=== PATIENT | female | born 1975 | race Caucasian/White ===

== ENCOUNTER 2018-04-26 20:28 | Inpatient (IN) ==
[2018-04-26] MEDS ORDERED: Sodium Chlor 0.9% Inj 500 ML IV.SIG ONE (21:10)
[2018-04-26 21:51] LABS: Baso # (Auto) 0.1 th/mm3 (0.0-0.2); Baso % (Auto) 0.5 % (0.0-2.0); Eos % (Auto) 0.1 % (0.0-4.0); Hematocrit 32.1 % (35.0-46.0); Hemoglobin 10.3 gm/dL (11.6-15.3); Lymph # (Auto) 3.4 th/mm3 (1.0-4.8); Mean Corpuscular HGB Conc 32.2 % (32.0-36.0); Mean Corpuscular Hemoglobin 22.6 pg (27.0-34.0); Mean Platelet Volume 9.5 fL (7.0-11.0); Mono # (Auto) 1.4 th/mm3 (0.0-0.9); Mono % (Auto) 7.6 % (0.0-8.0); Neut # (Auto) 13.8 th/mm3 (1.8-7.7); Neut % (Auto) 73.8 % (16.0-70.0); Platelet Count 513 th/mm3 (150-450); Red Blood Count 4.58 mil/mm3 (4.00-5.30); Red Cell Distribution Width 17.3 % (11.6-17.2); White Blood Count 18.7 th/mm3 (4.0-11.0)
[2018-04-26] MEDS ORDERED: Piperacil/Tazo 3.375 GM Premix 50 ML IV.SIG ONE (22:08)
[2018-04-26] MEDS ORDERED: Vancomycin Inj 1 GM/200 ML PIGGYBACK IV.SIG ONE (22:08)
--- NOTE | 2018-04-26 22:08 | ED ---
HPI General Chief complaint: Skin/Abscess/Foreign Body Stated complaint: Evac/Medical Time Seen by Provider: 04/26/18 20:43 Source: patient History of Present Illness HPI narrative: Patient has a abscess with a green eschar swollen and severely red and tender to the lateral malleolus on her left foot she is an IVDA drug abuser she apparently was given antibiotic. She was seen by a in the ER but did not fill that prescription. And she tried to do an I&D herself and now it is severely swollen tender odorous almost mostly gangrenous with a greenish hue to the eschar. Patient has pain severe tenderness left lateral malleolus with obvious swelling erythema central eschar purulent with a greenish edge to it very worrisome for gangrene gas producing. Pain is 10 out of 10 she is crying in pain asking for pain medication Related Data Home Medications Medication Instructions Recorded Confirmed No Known Home Medications 04/26/18 04/26/18 Allergies Allergy/AdvReac Type Severity Reaction Status Date / Time ibuprofen Allergy Severe Edema Verified 04/26/18 20:38 Review of Systems Except as stated in HPI: all other systems reviewed are negative Musculoskeletal Reports arthralgias, Reports joint swelling and Reports other (Severe pain in her left lateral malleolus and foot obvious red swollen tender and a greenish eschar for 4 days) [facility] Social History Social History Substance History: Active Abuse Second Hand Smoke Exposure: Yes Smoking Status: Current every day smoker Tobacco Type: Cigarettes How Often Do You Have a Drink Containing Alcohol: Never Recent Travel in [facility] within the Last 8 Weeks: No Recent Out of Country Travel within the Last 8 Weeks: No Substance Abuse Detail Heroin: Substance Use Status: Active Route Used Substance Abuse: Inhalation Substance Abuse Comment: "TAKE THE PAIN AWAY" Reason for Use: Feels Good and Get High Immunization History Tetanus Immunization: Unsure Tetanus Immunization Year if Known: 2014 Exam Narrative Exam Narrative: Patient is in severe pain tender crying holding her left ankle and leg rocking in the bed and pain HENMT Head: normal to inspection Ears: hearing grossly normal bilaterally Mouth: oral mucosae normal Resp Auscultation: clear to auscultation bilaterally Skin General: eschar (Patient has severe swelling redness to the lateral aspect of the left foot including the lateral malleolus as well as left foot red tender swollen and on the malleolus itself there is an eschar purulent with green edge that smells very strongly of gangrene) Course Initial Documented Vital Signs Temperature 99.8 F H 04/26/18 20:35 Pulse Rate 103 H 04/26/18 20:35 Respiratory Rate 20 04/26/18 20:35 Blood Pressure 119/69 04/26/18 20:35 Pulse Oximetry 99 04/26/18 20:35 Last Documented Vital Signs Temperature 98.4 F 05/02/18 20:00 Pulse Rate 63 05/02/18 20:00 Respiratory Rate 16 05/02/18 20:00 Blood Pressure 129/76 05/02/18 20:00 Pulse Oximetry 96 05/02/18 20:00 Medical Decision Making MDM Narrative Medical decision making narrative: Patient is given Vanco Zosyn and Flagyl for all the multiple possibilities x-rays done shows gas in the skin of the lateral foot podiatry was called immediately Dr. Slater comes and it takes the patient to the OR to debride this gas producing bacterial infection of her foot Differential Diagnosis Differential Diagnosis: Differential diagnosis includes cellulitis versus abscess versus gangrene gas producing bacteria versus other bacteria causing severe infection possible MRSA however with the smell greenish possible gangrene possibly Klebsiella other Lab Data Result diagrams: 04/29/18 06:51 04/29/18 06:51 Lab Results 04/26/18 04/26/18 04/26/18 Range/Units 21:12 21:12 21:12 WBC 18.7 H (4.0-11.0) th/mm3 RBC 4.58 (4.00-5.30) mil/mm3 Hgb 10.3 L (11.6-15.3) gm/dL Hct 32.1 L (35.0-46.0) % MCV 70.0 L (80.0-100.0) fL MCH 22.6 L (27.0-34.0) pg MCHC 32.2 (32.0-36.0) % RDW 17.3 H (11.6-17.2) % Plt Count 513 H (150-450) th/mm3 MPV 9.5 (7.0-11.0) fL Neut % (Auto) 73.8 H (16.0-70.0) % Lymph % (Auto) 18.0 (9.0-44.0) % [place] % (Auto) 7.6 (0.0-8.0) % Eos % (Auto) 0.1 (0.0-4.0) % Baso % (Auto) 0.5 (0.0-2.0) % Neut # (Auto) 13.8 H (1.8-7.7) th/mm3 Lymph # (Auto) 3.4 (1.0-4.8) th/mm3 [place] # (Auto) 1.4 H (0.0-0.9) th/mm3 Eos # (Auto) 0.0 (0.0-0.4) th/mm3 Baso # (Auto) 0.1 (0.0-0.2) th/mm3 WBC Differential . Differential Comment Auto diff final Sodium 134 L (136-145) meq/L Potassium 2.7 L* (3.5-5.1) meq/L Chloride 98 (98-107) meq/L Carbon Dioxide 23.2 (21.0-32.0) meq/L Anion Gap 13 (5-15) meq/L BUN 7 (7-18) mg/dL Creatinine 0.98 (0.50-1.00) mg/dL Estimated GFR 62 L (>89) mL/min Random Glucose 112 H (74-106) mg/dL Lactic Acid 1.8 (0.4-2.0) mmol/L Calcium 8.8 (8.5-10.1) mg/dL Total Bilirubin 0.6 (0.2-1.0) mg/dL AST 18 (15-37) U/L ALT 12 (10-53) U/L Alkaline Phosphatase 64 (45-117) U/L Total Protein 7.8 (6.4-8.2) g/dL Albumin 2.5 L (3.4-5.0) g/dL Urine Color (Yellw/Straw) Urine Clarity (Clear) Urine pH (5.0-8.5) Ur Specific Odell (1.002-1.035) Urine Protein (Neg-Trace) mg/dL Urine Glucose (UA) (Negative) mg/dL Urine Ketones (Negative) mg/dL Urine Occult Blood (Negative) Urine Nitrate (Negative) Urine Bilirubin (Negative) Urine Urobilinogen (Less than 2) mg/dL Ur Leukocyte Esterase (Negative) Urine RBC (0-3) /hpf Urine WBC (0-5) /hpf Ur Squamous Epith Cells (0-5) /hpf Urine Bacteria (None) /hpf Hyaline Casts (0-3) /lpf Urine Mucus (Occasional) /lpf Micro UA Comment Urine Culture Comments Vancomycin Trough (5.0-10.0) mcg/mL 04/27/18 04/27/18 04/27/18 Range/Units 00:40 08:55 08:55 WBC 20.7 H (4.0-11.0) th/mm3 RBC 3.90 L (4.00-5.30) mil/mm3 Hgb 9.0 L (11.6-15.3) gm/dL Hct 27.9 L (35.0-46.0) % MCV 71.5 L (80.0-100.0) fL MCH 23.0 L (27.0-34.0) pg MCHC 32.2 (32.0-36.0) % RDW 17.6 H (11.6-17.2) % Plt Count 470 H (150-450) th/mm3 MPV 9.2 (7.0-11.0) fL Neut % (Auto) 92.6 H (16.0-70.0) % Lymph % (Auto) 4.8 L (9.0-44.0) % [place] % (Auto) 2.5 (0.0-8.0) % Eos % (Auto) 0.0 (0.0-4.0) % Baso % (Auto) 0.1 (0.0-2.0) % Neut # (Auto) 19.2 H (1.8-7.7) th/mm3 Lymph # (Auto) 1.0 (1.0-4.8) th/mm3 [place] # (Auto) 0.5 (0.0-0.9) th/mm3 Eos # (Auto) 0.0 (0.0-0.4) th/mm3 Baso # (Auto) 0.0 (0.0-0.2) th/mm3 WBC Differential . Differential Comment Auto diff final Sodium 140 (136-145) meq/L Potassium 3.4 L (3.5-5.1) meq/L Chloride 107 D (98-107) meq/L Carbon Dioxide 24.1 (21.0-32.0) meq/L Anion Gap 9 (5-15) meq/L BUN 9 (7-18) mg/dL Creatinine 0.87 (0.50-1.00) mg/dL Estimated GFR 71 L (>89) mL/min Random Glucose 197 H (74-106) mg/dL Lactic Acid (0.4-2.0) mmol/L Calcium 8.5 (8.5-10.1) mg/dL Total Bilirubin 0.3 (0.2-1.0) mg/dL AST 16 (15-37) U/L ALT 12 (10-53) U/L Alkaline Phosphatase 128 H (45-117) U/L Total Protein 6.9 D (6.4-8.2) g/dL Albumin 2.2 L (3.4-5.0) g/dL Urine Color Jerilyn (Yellw/Straw) Urine Clarity Turbid H (Clear) Urine pH 5.0 (5.0-8.5) Ur Specific Odell 1.026 (1.002-1.035) Urine Protein 30 H (Neg-Trace) mg/dL Urine Glucose (UA) Negative (Negative) mg/dL Urine Ketones Negative (Negative) mg/dL Urine Occult Blood Small H (Negative) Urine Nitrate Negative (Negative) Urine Bilirubin Negative (Negative) Urine Urobilinogen 2.0 H (Less than 2) mg/dL Ur Leukocyte Esterase Trace H (Negative) Urine RBC 55 H (0-3) /hpf Urine WBC 62 H (0-5) /hpf Ur Squamous Epith Cells 127 (0-5) /hpf Urine Bacteria Moderate H (None) /hpf Hyaline Casts 29 (0-3) /lpf Urine Mucus Many H (Occasional) /lpf Micro UA Comment Culture indicated Urine Culture Comments Culture indicated Vancomycin Trough (5.0-10.0) mcg/mL 04/28/18 04/29/18 04/29/18 Range/Units 11:48 06:51 06:51 WBC 7.1 (4.0-11.0) th/mm3 RBC 3.66 L (4.00-5.30) mil/mm3 Hgb 8.3 L (11.6-15.3) gm/dL Hct 26.4 L (35.0-46.0) % MCV 72.1 L (80.0-100.0) fL MCH 22.7 L (27.0-34.0) pg MCHC 31.5 L (32.0-36.0) % RDW 16.9 (11.6-17.2) % Plt Count 444 (150-450) th/mm3 MPV 9.5 (7.0-11.0) fL Neut % (Auto) 50.2 (16.0-70.0) % Lymph % (Auto) 39.6 (9.0-44.0) % [place] % (Auto) 6.6 (0.0-8.0) % Eos % (Auto) 2.5 (0.0-4.0) % Baso % (Auto) 1.1 (0.0-2.0) % Neut # (Auto) 3.6 (1.8-7.7) th/mm3 Lymph # (Auto) 2.8 (1.0-4.8) th/mm3 [place] # (Auto) 0.5 (0.0-0.9) th/mm3 Eos # (Auto) 0.2 (0.0-0.4) th/mm3 Baso # (Auto) 0.1 (0.0-0.2) th/mm3 WBC Differential . Differential Comment Auto diff final Sodium 144 (136-145) meq/L Potassium 3.3 L (3.5-5.1) meq/L Chloride 108 H (98-107) meq/L Carbon Dioxide 25.9 (21.0-32.0) meq/L Anion Gap 10 (5-15) meq/L BUN 6 L (7-18) mg/dL Creatinine 0.78 (0.50-1.00) mg/dL Estimated GFR 81 L (>89) mL/min Random Glucose 79 D (74-106) mg/dL Lactic Acid (0.4-2.0) mmol/L Calcium 8.6 (8.5-10.1) mg/dL Total Bilirubin (0.2-1.0) mg/dL AST (15-37) U/L ALT (10-53) U/L Alkaline Phosphatase (45-117) U/L Total Protein (6.4-8.2) g/dL Albumin (3.4-5.0) g/dL Urine Color (Yellw/Straw) Urine Clarity (Clear) Urine pH (5.0-8.5) Ur Specific Odell (1.002-1.035) Urine Protein (Neg-Trace) mg/dL Urine Glucose (UA) (Negative) mg/dL Urine Ketones (Negative) mg/dL Urine Occult Blood (Negative) Urine Nitrate (Negative) Urine Bilirubin (Negative) Urine Urobilinogen (Less than 2) mg/dL Ur Leukocyte Esterase (Negative) Urine RBC (0-3) /hpf Urine WBC (0-5) /hpf Ur Squamous Epith Cells (0-5) /hpf Urine Bacteria (None) /hpf Hyaline Casts (0-3) /lpf Urine Mucus (Occasional) /lpf Micro UA Comment Urine Culture Comments Vancomycin Trough 7.2 (5.0-10.0) mcg/mL Imaging Data Radiologist's impression: Ankle X-Ray 04/26/18 23:12 CONCLUSION: Extensive soft tissue swelling with air in the soft tissues of the lateral left foot posteriorly characteristic of infection with gas producing organism. Foot X-Ray 04/26/18 23:12 CONCLUSION: Infection of the lateral posterior left foot with gas producing organism. No acute bony abnormality identified on plain film. Discharge Plan Discharge Disposition Patient Disposition: 30 Still Patient Discharge Details Diagnosis: Gas gangrene, Foot ulcer with necrosis of muscle Physicians Team ED Provider: Jerrod Ramirez Primary Care Provider: UNKNOWN, Attending Provider: Cecilia Nicole Other Providers: Jonas Slater ; Sharona Box Discharge Interventions Interventions: ED Discharge Assessment Last Done: 04/27/18 02:32 Status ED Status: Left Department Discharge Information Discharge Date/Time: 04/27/18 02:33
[2018-04-26] MEDS ORDERED: HYDROmorphone PF Inj 2 MG/ML Vial IV.PUSH ONE (22:09)
[2018-04-26 22:15] LABS: Alanine Aminotransferase 12 U/L (10-53); Albumin 2.5 g/dL (3.4-5.0); Alkaline Phosphatase 64 U/L (45-117); Anion Gap 13 meq/L (5-15); Aspartate Aminotransferase 18 U/L (15-37); Blood Urea Nitrogen 7 mg/dL (7-18); Calcium 8.8 mg/dL (8.5-10.1); Carbon Dioxide 23.2 meq/L (21.0-32.0); Chloride 98 meq/L (98-107); Glomerular Filtration Rate 62 mL/min (>89); Glucose,Random 112 mg/dL (74-106); Sodium 134 meq/L (136-145); Total Protein 7.8 g/dL (6.4-8.2)
[2018-04-26] MEDS ORDERED: Vancomycin Inj 1,000 MG in Sodium Chlor 0.9% Inj 250 ML IV.SIG ONE (22:15)
[2018-04-26 22:22] LABS: Potassium 2.7 meq/L (3.5-5.1)
[2018-04-26] MEDS ORDERED: Morphine Sulfate Inj 2 MG/ML Vial IV.PUSH PRN (23:23)
[2018-04-26] MEDS ORDERED: Acetaminophen 325 MG Tablet PO PRN (23:25)
[2018-04-26] MEDS ORDERED: Bisacodyl 10 MG Supp RECTAL PRN (23:25)
--- NOTE | 2018-04-26 23:27 | P.HPIM ---
History of Present Illness Primary Care Physician: UNKNOWN History of Present Illness: This is a 43-year-old female with a PMH of IVDU presents to ER with complaints of left foot swelling and tenderness x1 wk after injecting IV drugs into left foot. Seen in ER on 04/23/18 for similar symptoms, d/c'd w/ Bactrim/Keflex, non- compliant w/ antibiotics. Now w/ worsening pain/swelling. Denies fever or chills. On arrival, BP 119/69, HR 103, O2 sat 99%, Temp 99.8. WBC 18.7. K+ 2.7. Lactic Acid normal. Foot X-ray w/ infection of left foot w/ gas producing organism. Podiatry consulted for surgical intervention. S/p Vanc/ Zosyn/Flagyl in ER. - Diagnosis (1) Sepsis (2) Foot infection (3) IVDU (intravenous drug user) (4) Hypokalemia Inpatient Certification: I certify that the inpatient services were ordered in accordance with Medicare regulations governing the order. This includes certification that hospital inpatient services are reasonable and necessary and in the case of services not specified as inpatient-only under 42 CFR 419.22(n), that they are appropriately provided as inpatient services in accordance to with the 2-midnight benchmark under 43 CFR 412.3(e) Estimated Total Length of Stay (Days): 2 Plans for Post Hospital Care: Not yet determined Review of Systems All other systems reviewed negative except as stated in [facility] - History History Provided By: Patient - Medical History Medical History: Medical History (Last Reviewed 04/24/18 @ 02:20 by Malorie Dhaliwal) Tubal ligation status - Tobacco History Second Hand Smoke Exposure: Yes Tobacco Use In Past 30 Days: Yes Smoking Status: Current every day smoker Tobacco Type: Cigarettes - Alcohol History How Often Do You Have a Drink Containing Alcohol: Never - Substance Use History Substance History: Active Abuse - Substance Use Type Heroin Status: Active Route Used: Inhalation Reason for Use: Feels Good, Get High Comment: "TAKE THE PAIN AWAY" - Travel History Recent Travel in the [place] Within the Last 8 Weeks: No Recent Travel Out of the Country Within the Last 8 Weeks: No - Immunization History Tetanus Immunization: Unsure Tetanus Immunization Year if Known: 2014 Medications and Allergies Allergies Allergy/AdvReac Type Severity Reaction Status Date / Time ibuprofen Allergy Severe Edema Verified 04/26/18 20:38 Home Medications Medication Instructions Recorded Confirmed Type No Known Home Medications 04/26/18 04/26/18 History Exam Vital signs: Vital Signs 04/26/18 20:35 04/26/18 20:42 04/26/18 22:19 Temperature 99.8 F H Pulse Rate 103 H 103 H 88 Respiratory Rate 18 Blood Pressure 119/69 116/56 L 104/84 Pulse Oximetry 99 98 99 Intake & Output 04/26/18 04/26/18 04/27/18 06:59 18:59 06:59 Weight 77 kg Narrative: PE: GENERAL: Young white female in moderate distress due to pain complaints. HEENT: PERRLA, EOMI. No scleral icterus or conjunctival pallor. No lid lag or facial droop. CARDIOVASCULAR: Regular rate and rhythm. No obvious murmurs to auscultation. No chest tenderness to palpation. RESPIRATORY: No obvious rhonchi or wheezing. Clear to auscultation. Breath sounds equal bilaterally. GASTROINTESTINAL: Abdomen soft, non-tender, nondistended. BS normal. MUSCULOSKELETAL: Extremities without clubbing, cyanosis, or edema. No obvious deformities. Left foot w/ significant swelling/erythema, area of necrosis left ankle w/ purulent drainage. NEUROLOGICAL: Awake, alert and oriented x4. No focal neurologic deficits. Moving both upper and lower extremities spontaneously. Results - Labs CBC & Chem 7: 04/26/18 21:12 04/26/18 21:12 Labs: Short CBC 04/26/18 Range/Units 21:12 WBC 18.7 H (4.0-11.0) th/mm3 Hgb 10.3 L (11.6-15.3) gm/dL Hct 32.1 L (35.0-46.0) % Plt Count 513 H (150-450) th/mm3 BMP 04/26/18 21:12 Sodium 134 L Potassium 2.7 L* Chloride 98 Carbon Dioxide 23.2 BUN 7 Creatinine 0.98 Calcium 8.8 Liver Function 04/26/18 Range/Units 21:12 Total Bilirubin 0.6 (0.2-1.0) mg/dL AST 18 (15-37) U/L ALT 12 (10-53) U/L Alkaline Phosphatase 64 (45-117) U/L Albumin 2.5 L (3.4-5.0) g/dL Caprini VTE Risk Assessment Caprini VTE Risk Assessment: No/Low Risk (score <= 1) VTE Mechanical Exception: LE injury/wound Caprini Risk Assessment Model: Point Value = 1 Point Value = 2 Point Value = 3 Point Value = 5 Age 41-60 Minor surgery BMI > 25 kg/m2 Swollen legs Varicose veins or History of unexplained or recurrent spontaneous Oral contraceptives or hormone replacement Sepsis (< 1 month) Serious lung disease, including pneumonia (< 1 month) Abnormal pulmonary function Acute myocardial infarction Congestive heart failure (< 1 month) History of inflammatory bowel disease Medical patient at bed rest Age 61-74 Arthroscopic surgery Major open surgery (> 45 min) Laparoscopic surgery (> 45 min) Malignancy Confined to bed (> 72 hours) Immobilizing plaster cast Central venous access Age >= 75 History of VTE Family history of VTE Factor V Leiden Prothrombin [id number] Lupus anticoagulant Anticardiolipin antibodies Elevated serum homocysteine Heparin-induced thrombocytopenia Other congenital or acquired thrombophilia Stroke (< 1 month) Elective arthroplasty Hip, pelvis, or leg fracture Acute spinal cord injury (< 1 month) Prophylaxis Regimen: Total Risk Factor Score Risk Level Prophylaxis Regimen 0-1 Low Early ambulation 2 Moderate Order ONE of the following: *Sequential Compression Device (SCD) *Heparin 5000 units SQ BID 3-4 Higher Order ONE of the following medications: *Heparin 5000 units SQ TID *Enoxaparin/Lovenox 40 mg SQ daily (WT < 150 kg, CrCl > 30 mL/min) *Enoxaparin/Lovenox 30 mg SQ daily (WT < 150 kg, CrCl > 10-29 mL/min) *Enoxaparin/Lovenox 30 mg SQ BID (WT < 150 kg, CrCl > 30 mL/min) AND/OR *Sequential Compression Device (SCD) 5 or more Highest Order ONE of the following medications: *Heparin 5000 units SQ TID (Preferred with Epidurals) *Enoxaparin/Lovenox 40 mg SQ daily (WT < 150 kg, CrCl > 30 mL/min) *Enoxaparin/Lovenox 30 mg SQ daily (WT < 150 kg, CrCl > 10-29 mL/min) *Enoxaparin/Lovenox 30 mg SQ BID (WT < 150 kg, CrCl > 30 mL/min) AND *Sequential Compression Device (SCD) Assessment and Plan - Assessment (1) Sepsis Code(s): A41.9 - Sepsis, unspecified organism Status: Acute (2) Foot infection Code(s): L08.9 - Local infection of the skin and subcutaneous tissue, unspecified Status: Acute (3) IVDU (intravenous drug user) Code(s): F19.90 - Other psychoactive substance use, unspecified, uncomplicated Status: Acute (4) Hypokalemia Code(s): E87.6 - Hypokalemia Status: Acute - Plan A/P: 1. Sepsis: Temp 99, HR 103, WBC 18, Source-Left foot infection, s/p blood cultures, Vanc/Zosyn/Flagyl. Follow up cultures, continue IV Abx. 2. Left Foot Infection: after IVDU, recent eval in ER for same s/p Bactrim/ Keflex, non-compliant w/ meds. X-ray w/ infection from gas producing organism, images reviewed by me. Podiatry consulted for surgical intervention, NPO, IVF, continue w/ Vanc/Cef/Flagyl. 3. IVDU: ongoing, Ativan prn for withdrawal. 4. DVT Prophylaxis: Mechanical contraindication due to wound 5. Social work for d/c planning as needed. 6. Case discussed w/ ER physician at length, labs/records/imaging reviewed by me.
[2018-04-26] MEDS ORDERED: Vancomycin Consult Pharmacy 1 EACH OTHER SCH (23:45)
[2018-04-27] MEDS: Sod Chloride 0.9% Inj 1,000 ML IV.CONT SCH ×3 (00:02→13:21)
--- NOTE | 2018-04-27 00:08 | XR ---
EXAM DATE: 04/26/2018 11:50 PM EDT AGE/SEX: 43 years / Female INDICATIONS: Open sore on lateral side of left ankle for four days. CLINICAL DATA: This is the patient's initial encounter. Patient reports that signs and symptoms have been present for 4 - 6 days and indicates a pain score of 10/10. MEDICAL/SURGICAL HISTORY: None. None. COMPARISON: No prior exams available for comparison. FINDINGS: There is extensive soft tissue swelling overlying the lateral posterior left foot and around the late ral malleolus with large locules of air in the soft tissues. Findings are characteristic of a necroti zing infection or infection with gas producing organism. No acute bony abnormalities. CONCLUSION: Extensive soft tissue swelling with air in the soft tissues of the lateral left foot posteriorly joni acteristic of infection with gas producing organism. Electronically signed by: Manuel Valdez MD 04/27/2018 12:06 AM EDT
--- NOTE | 2018-04-27 00:09 | XR ---
EXAM DATE: 04/26/2018 11:51 PM EDT AGE/SEX: 43 years / Female INDICATIONS: Open sore on lateral side of foot. CLINICAL DATA: This is the patient's initial encounter. Patient reports that signs and symptoms have been present for 4 - 6 days and indicates a pain score of 10/10. MEDICAL/SURGICAL HISTORY: None. None. COMPARISON: C, ANKLE LIMITED LEFT 2V, 04/26/2018. . FINDINGS: No acute bony abnormality. Extensive soft tissue swelling with gas in the soft tissues of the lateral posterior left foot. CONCLUSION: Infection of the lateral posterior left foot with gas producing organism. No acute bony abnormality i dentified on plain film. Electronically signed by: Manuel Valdez MD 04/27/2018 12:07 AM EDT
[2018-04-27] MEDS ORDERED: Diphtheria/Tetanus/Pertussis Vaccine Inj 0.5 ML Syringe IM ONE (00:43)
[2018-04-27] MEDS: Morphine Inj 4 MG/ML Vial IV.PUSH PRN (01:12)
[2018-04-27 01:26] LABS: Bacteria,Urine Moderate /hpf; Clarity,Urine Turbid (Clear); Color,Urine Amber (Yellw/Straw); Glucose,Urine (UA) Negative (Negative); Hyaline Casts,Urine 29 /lpf (0-3); Leukocyte Esterase,Urine Trace (Negative); Mucus,Urine Many /lpf (Occasional); Nitrite,Urine Negative (Negative); Specific Gravity,Urine 1.026 (1.002-1.035); Squamous Epithelial Cell,Urine 127 /hpf (0-5)
[2018-04-27 01:28] LABS: Bilirubin,Urine Negative (Negative)
--- NOTE | 2018-04-27 02:55 | P.BOP ---
- Preoperative Diagnosis (1) Gas gangrene - Postoperative Diagnosis (1) Gas gangrene Date of procedure: 04/27/18 Procedure: Left ankle incision drainage debridement with application of wound vac Anesthesia: DAMIAN Surgeon: Jonas Slater DPM Estimated blood loss (mL): 30 (mL) Tourniquet time (min): 0 Pathology: other (Wound cx x2 deep left ankle) Condition: stable Disposition: PACU
[2018-04-27] MEDS ORDERED: HYDROmorphone PF Inj 2 MG/ML Vial ONE (02:58)
[2018-04-27] MEDS ORDERED: fentaNYL Citrate Inj 100 MCG/2 ML Ampul ONE (03:09)
[2018-04-27] MEDS ORDERED: *Meperidine Inj 25 MG/ML Vial PERIprocedural Use ONLY ONE (03:10)
--- NOTE | 2018-04-27 03:17 | MB ---
cc: Jonas Conteh DPM DATE: 04/27/2018 REASON FOR CONSULTATION: Left gas gangrene of ankle. HISTORY OF PRESENT ILLNESS: A 43-year-old female with a history of IV drug abuse, point tenderness of the left foot and ankle approximately 1 week after injecting heroin into her foot. She was seen on 04/23/2018 for similar symptoms. She was discharged on antibiotics; however, significant worsening and pain noted. The patient was noted to have gas seen on x-ray. The emergency room called me. I immediately presented bedside for emergency evaluation and surgery. PAST MEDICAL HISTORY: Tubal ligation, IV drug abuser, heroin. ALLERGIES: MOTRIN. MEDICATIONS: The patient has received antibiotics and tetanus update in the ED, as well as antibiotics, Flagyl, Zosyn, and vancomycin. Please see complete medication list in chart. PHYSICAL EXAMINATION: VITAL SIGNS: Temperature 99.8, pulse rate 103, respiratory rate 20, blood pressure 119/69. GENERAL: This is an alert and oriented female. She is in obvious pain of the extremity. EXTREMITIES: Left lower extremity was examined. There is noted to be a necrotic, fluctuant area measuring approximately 3 x 4 cm of the distal lateral ankle. There is near complete swelling of the foot, ankle and distal leg, but it appears the majority of the gas remains below the ankle. Pedal pulses are hard to palpate, but the foot is warm. Sensation is intact. There is significant pain with range of motion of the foot and ankle, but there is no obvious malalignment or instability noted. Right lower extremity is free from any obvious pathology. LABORATORY DATA: White blood cell 18.7, hemoglobin and hematocrit 10 and 32, platelet count is 513. Chem-7: Sodium 134, potassium 2.7; the patient received oral potassium in the ED. Chloride 98, CO2 of 23.2, BUN 7. Random glucose is 118, albumin 2.5. IMAGING: Ankle x-ray: Positive gas within the deep tissue. Extensive soft tissue swelling of the lateral foot. ASSESSMENT AND PLAN: Left ankle gas gangrene: The patient needs emergent incision and drainage and expansile debridement to save the limb and prevent further sepsis. The patient was educated this may be the first of many surgeries. The patient understood that there is likely going to be chronic pain, possible deterioration of tendon function. No guarantees given or implied regarding the outcome. The patient understood the severity of the infection. We left for the operating room. ISAIAS Barillas/[place] , 02:58 AM , 03:16 AM
--- NOTE | 2018-04-27 03:23 | MP ---
cc: Jonas Conteh DPM DATE OF OPERATION: PREOPERATIVE DIAGNOSIS: Left lateral ankle gas gangrene. POSTOPERATIVE DIAGNOSIS: Left lateral ankle gas gangrene. PROCEDURE PERFORMED: Incision and drainage, debridement of left ankle with application of wound VAC. ANESTHESIA: General. TOURNIQUET: None. INJECTABLES: None. IMPLANTABLES: The patient received application of a wound VAC at 100 mmHg under continuous suction. COMPLICATIONS: None. DISPOSITION: Returned to inpatient status to monitor wound, likely need multiple debridements and IV antibiotics. HISTORY OF PRESENT ILLNESS: A 43-year-old female IV drug abuser had slight onset of cellulitis. The patient was given oral antibiotics. The patient had significant worsening of symptoms. The patient had x-rays and physical examination consistent with a gas gangrene. Emergency surgery indicated. No guarantees given or implied regarding the outcome. The patient understood there will likely be permanent disability of the limb given the extent of the infection; however, we will try a limb salvage. PROCEDURE IN DETAIL: Under mild sedation, the patient was brought in the operating room, placed on the operating table in supine position. Following a rapid sequential intubation and epigastric emptying via suction, the left lower extremity was then scrubbed, prepped and draped in the usual aseptic fashion. The foot was elevated and examined. There was noted to be an approximately 4 x 6 cm distal lateral crepitus area of the distal lateral ankle. Upon performing an incision over this area, there was a rapid decompression of an air-filled pocket and a putrid odor. An incision was carried along the dorsal peroneal tendons and the posterolateral ankle. There was a purulent pocket that appeared to stay just superficial to the tendon sheath but appeared to go deep to the fascia. Sharp and blunt dissection was carried down to the dorsum of the foot, posterolateral ankle, and the plantar lateral hindfoot. All necrotic tissue and purulent material was curetted and lavaged. The wound was then left open to drain with a wound VAC placed over top. There is now a central void down to the peroneal tendon that measures approximately 3.5 cm x 4 cm with approximately 1 cm of depth. Adequate seal and suction obtained. The patient recovered in PACU. The patient may need multiple surgeries, and possible skin graft at the end of all of this; however, controlling the infection is my concern at this point. Will reevaluate the wound daily. ISAIAS Barillas , 03:02 AM , 03:21 AM
--- NOTE | 2018-04-27 09:38 | P.PN ---
Subjective Interval history: Follow up for left foot infection, sepsis. The patient reports continued left foot/ankle pain, requesting increased pain medications. She reports subjective fevers overnight with sweats. Denies any abdominal pain, nausea/vomiting, diarrhea. Denies any urinary complaints. She has no other medical complaints at this time. Physical Exam Vital signs: Vital Signs 04/26/18 20:35 04/26/18 20:42 04/26/18 22:19 Temperature 99.8 F H Pulse Rate 103 H 103 H 88 Respiratory Rate 20 22 18 Blood Pressure 119/69 116/56 L 104/84 Pulse Oximetry 99 98 99 04/27/18 00:00 04/27/18 02:56 04/27/18 03:00 Temperature 99.0 F Pulse Rate 90 98 H 104 H Respiratory Rate 18 16 Blood Pressure 97/70 L 97/64 L 93/62 L Pulse Oximetry 95 96 04/27/18 03:13 04/27/18 03:15 04/27/18 03:30 Temperature 98.3 F Pulse Rate 91 H 92 H Respiratory Rate 13 Blood Pressure 97/61 L 98/59 L Pulse Oximetry 96 99 97 04/27/18 03:45 04/27/18 03:48 04/27/18 04:00 Temperature 98.6 F Pulse Rate 88 92 H Respiratory Rate 13 15 15 Blood Pressure 98/55 L 97/58 L Pulse Oximetry 98 96 96 04/27/18 06:27 04/27/18 07:18 Temperature 98.4 F Pulse Rate 76 Respiratory Rate 15 18 Blood Pressure 92/50 L Pulse Oximetry 99 Intake & Output 04/26/18 04/27/18 04/27/18 18:59 06:59 18:59 Intake Total 900 / 900 100 / 100 Balance 900 / 900 100 / 100 Weight 77 kg Intake: IV 900 / 900 100 / 100 NS Inj 1,000 ML @ 100 mls/hr IV 0 / 0 .CONT .Q10H [facility] Rx#:[id number] Maxipime Inj 2,000 MG In NS Inj 100 / 100 100 ML @ 200 mls/hr IV.SIG Q8H [facility] Rx#:[id number] Zosyn 3.375 GM Premix 50 ML @ 50 / 50 100 mls/hr IV.SIG ONCE ONE Rx#: [id number] NS Inj 500 ML @ Wide Open IV. 500 / 500 SIG BOLUS ONE Rx#:[id number] Vancomycin Inj 1,000 MG In NS 250 / 250 Inj 250 ML @ 250 mls/hr IV.SIG ONCE ONE Rx#:[id number] Flagyl 500 MG Inj 100 ML @ 100 100 / 100 mls/hr IV.SIG ONCE ONE Rx#: [id number] Narrative: GENERAL: Well-nourished, well-developed middle aged female patient in NAD. SKIN: Warm and dry. No rash. HEENT: Normocephalic. Atraumatic. Pupils equal and round. Mucous membranes pink and moist. CARDIOVASCULAR: Regular rate and rhythm. No murmur appreciated. RESPIRATORY: No accessory muscle use. Clear to auscultation. Breath sounds equal bilaterally. GASTROINTESTINAL: Abdomen soft, non-tender, nondistended. Normoactive bowel sounds x4. MUSCULOSKELETAL: No obvious deformities. Left lateral ankle with wound vac in place, surrounding erythema/edema that extends up to the mid calf. NEUROLOGICAL: Awake and alert. No obvious cranial nerve deficits. Motor grossly within normal limits. Moving all extremities spontaneously. Normal speech. PSYCHIATRIC: Anxious; insight and judgment normal. Results - Labs CBC & Chem 7: 04/26/18 21:12 04/26/18 21:12 Laboratory Results - last 24 hr 04/26/18 04/26/18 04/26/18 21:12 21:12 21:12 WBC 18.7 H RBC 4.58 Hgb 10.3 L Hct 32.1 L MCV 70.0 L MCH 22.6 L MCHC 32.2 RDW 17.3 H Plt Count 513 H MPV 9.5 Neut % (Auto) 73.8 H Lymph % (Auto) 18.0 [place] % (Auto) 7.6 Eos % (Auto) 0.1 Baso % (Auto) 0.5 Neut # (Auto) 13.8 H Lymph # (Auto) 3.4 [place] # (Auto) 1.4 H Eos # (Auto) 0.0 Baso # (Auto) 0.1 WBC Differential . Differential Comment Auto diff final Sodium 134 L Potassium 2.7 L* Chloride 98 Carbon Dioxide 23.2 Anion Gap 13 BUN 7 Creatinine 0.98 Estimated GFR 62 L Random Glucose 112 H Lactic Acid 1.8 Calcium 8.8 Total Bilirubin 0.6 AST 18 ALT 12 Alkaline Phosphatase 64 Total Protein 7.8 Albumin 2.5 L Urine Color Urine Clarity Urine pH Ur Specific [place] Urine Protein Urine Glucose (UA) Urine Ketones Urine Occult Blood Urine Nitrate Urine Bilirubin Urine Urobilinogen Ur Leukocyte Esterase Urine RBC Urine WBC Ur Squamous Epith Cells Urine Bacteria Hyaline Casts Urine Mucus Micro UA Comment Urine Culture Comments 04/27/18 00:40 WBC RBC Hgb Hct MCV MCH MCHC RDW Plt Count MPV Neut % (Auto) Lymph % (Auto) [place] % (Auto) Eos % (Auto) Baso % (Auto) Neut # (Auto) Lymph # (Auto) [place] # (Auto) Eos # (Auto) Baso # (Auto) WBC Differential Differential Comment Sodium Potassium Chloride Carbon Dioxide Anion Gap BUN Creatinine Estimated GFR Random Glucose Lactic Acid Calcium Total Bilirubin AST ALT Alkaline Phosphatase Total Protein Albumin Urine Color Jerilyn Urine Clarity Turbid H Urine pH 5.0 Ur Specific [place] 1.026 Urine Protein 30 H Urine Glucose (UA) Negative Urine Ketones Negative Urine Occult Blood Small H Urine Nitrate Negative Urine Bilirubin Negative Urine Urobilinogen 2.0 H Ur Leukocyte Esterase Trace H Urine RBC 55 H Urine WBC 62 H Ur Squamous Epith Cells 127 Urine Bacteria Moderate H Hyaline Casts 29 Urine Mucus Many H Micro UA Comment Culture indicated Urine Culture Comments Culture indicated - Imaging Impressions Ankle X-Ray 04/26/18 23:12 CONCLUSION: Extensive soft tissue swelling with air in the soft tissues of the lateral left foot posteriorly characteristic of infection with gas producing organism. Foot X-Ray 04/26/18 23:12 CONCLUSION: Infection of the lateral posterior left foot with gas producing organism. No acute bony abnormality identified on plain film. - Procedures 04/26/18 - Dr. Conteh - Left ankle incision drainage debridement with application of wound vac Assessment and Plan - Assessment (1) Sepsis Code(s): A41.9 - Sepsis, unspecified organism Status: Acute (2) Foot infection Code(s): L08.9 - Local infection of the skin and subcutaneous tissue, unspecified Status: Acute (3) IVDU (intravenous drug user) Code(s): F19.90 - Other psychoactive substance use, unspecified, uncomplicated Status: Acute (4) Hypokalemia Code(s): E87.6 - Hypokalemia Status: Acute - Plan 43-year-old female with a PMH of IVDU presents to ER with complaints of left foot swelling and tenderness x1 wk after injecting IV drugs into left foot. Seen in ER on 04/23/18 for similar symptoms, d/c'd w/ Bactrim/Keflex, non- compliant w/ antibiotics. Left Foot Infection: after IVDU. +leukocytosis WBC 18K, tachycardia HR 103, temp 99.8. -X-ray reviewed, shows infection from gas producing organism -Podiatry consulted -04/26 S/p Left ankle incision drainage debridement with application of wound vac by Dr. Conteh -Continue antibiotics with IV Vanco/Cefepime/Flagyl -Consult ID -Supportive treatment with IVF, pain control with oxycodone prn -Elevate LLE Sepsis: Temp 99, HR 103, WBC 18, Source-Left foot infection. Lactic acid 1.8. -monitor blood cultures -Continue on antibiotics as above with IV Vanc/Zosyn/Flagyl. -Consult ID IVDU: ongoing -Counseled on cessation -Ativan prn for withdrawal. DVT Prophylaxis: Mechanical contraindication due to wound.
[2018-04-27 09:58] LABS: Baso % (Auto) 0.1 % (0.0-2.0); Hematocrit 27.9 % (35.0-46.0); Lymph % (Auto) 4.8 % (9.0-44.0); Mean Corpuscular HGB Conc 32.2 % (32.0-36.0); Mean Corpuscular Volume 71.5 fL (80.0-100.0); Mean Platelet Volume 9.2 fL (7.0-11.0); Mono # (Auto) 0.5 th/mm3 (0.0-0.9); Mono % (Auto) 2.5 % (0.0-8.0); Neut # (Auto) 19.2 th/mm3 (1.8-7.7); Neut % (Auto) 92.6 % (16.0-70.0); Platelet Count 470 th/mm3 (150-450); Red Cell Distribution Width 17.6 % (11.6-17.2); White Blood Count 20.7 th/mm3 (4.0-11.0)
[2018-04-27] MEDS: Senna/Docusate Sodium 8.6/50 MG Tablet PO SCH ×2 (10:13→22:40)
[2018-04-27] MEDS: HYDROmorphone PF Inj 2 MG/ML Vial IV.PUSH PRN ×3 (10:14→21:33)
[2018-04-27 10:21] LABS: Alanine Aminotransferase 12 U/L (10-53); Albumin 2.2 g/dL (3.4-5.0); Anion Gap 9 meq/L (5-15); Aspartate Aminotransferase 16 U/L (15-37); Blood Urea Nitrogen 9 mg/dL (7-18); Calcium 8.5 mg/dL (8.5-10.1); Carbon Dioxide 24.1 meq/L (21.0-32.0); Chloride 107 meq/L (98-107); Glomerular Filtration Rate 71 mL/min (>89); Glucose,Random 197 mg/dL (74-106); Potassium 3.4 meq/L (3.5-5.1); Sodium 140 meq/L (136-145)
[2018-04-27 10:37] LABS: Alkaline Phosphatase 128 U/L (45-117); Total Protein 6.9 g/dL (6.4-8.2)
[2018-04-27] MEDS ORDERED: Succinylcholine Inj 100 MG/5 ML Syringe IV.PUSH ONE (12:00)
[2018-04-27] MEDS: Vancomycin Inj 1,000 MG in Sodium Chlor 0.9% Inj 250 ML IV.SIG SCH (13:20)
--- NOTE | 2018-04-27 18:27 | P.CONID ---
History of Present Illness Service: ID Consult date: 04/27/18 Requesting Physician: Sandra Sandoval Reason for Consult: L foot infx Primary Care Provider: UNKNOWN History of Present Illness: 43 yo female with h/o IVDu presented with 2 days of worsening pain, swelling and redness of her L foot She has been doing IV drugs into the foot, including 2 days prior to the onset of her symptoms She also atmpted squeeze the painful lesion and it got worse after it She had Xray of the foot and it showed gas in tissues Podiatry saw the patient and took her for emergent I+D VAC was placed pt is on vancomycin,. cefepime and flagyl She reporetd fever chills earlier shioch now improved Gstained showed mixed amarilys and many WBC, cultuyre is P; blood clx are negative CBC with 20 K of WBC Review of Systems All other systems reviewed negative except as stated in HPI PMFSH - History History Provided By: Patient - Medical History Medical History: Medical History (Last Reviewed 06/24/18 @ 12:07 by Sharona Box MD) Tubal ligation status - Social History I have reviewed the patient's Social History: Yes - Tobacco History Second Hand Smoke Exposure: Yes Tobacco Use In Past 30 Days: Yes Smoking Status: Current every day smoker Tobacco Type: Cigarettes - Alcohol History How Often Do You Have a Drink Containing Alcohol: Never - Substance Use History Substance History: Active Abuse - Substance Use Type Heroin Status: Active Route Used: Inhalation, Intravenously Last Used: 04/26 Reason for Use: Feels Good, Get High Comment: SUPRESS FEELINGS, ANXIETY AND DEPRESSION - Travel History Recent Travel in the [place] Within the Last 8 Weeks: No Recent Travel Out of the Country Within the Last 8 Weeks: No - Immunization History Tetanus Immunization: Unsure Tetanus Immunization Year if Known: 2014 Hx Influenza Vaccine This Season: No Medications and Allergies Active Medications: Active Medications Acetaminophen (Tylenol) 650 mg PO Q4H PRN PRN Reason: Temp > 100.4 Al Hydroxide/Mg Hydroxide (Milk Of Magnesia Liq) 30 ml PO Q12H PRN PRN Reason: Mild Constipation Bisacodyl (Dulcolax Supp) 10 mg RECTAL DAILY PRN PRN Reason: SEVERE CONSITIPATION Hydromorphone HCl (Dilaudid Pf Inj) 2 mg IV.PUSH Q4H PRN PRN Reason: PAIN SCALE 7 TO 10 SEVERE Last Admin: 04/27/18 14:39 Dose: 2 mg Cefepime HCl 2,000 mg/ Sodium (Chloride) 100 mls @ 200 mls/hr IV.SIG Q8H [facility] [place] Last Infusion: 04/27/18 15:32 Dose: Infused Sodium Chloride (Ns Inj) 1,000 mls @ 100 mls/hr IV.CONT .Q10H [facility] [place] Last Admin: 04/27/18 13:21 Dose: 100 mls/hr Pharmacy Profile Note (Vancomycin Consult Pharmacy) 0 mls @ 0 mls/hr OTHER UNSCH [facility] [place] Metronidazole/Sodium Chloride (Flagyl 500 Mg Inj) 100 mls @ 100 mls/hr IV.SIG Q8H [facility] [place] Last Infusion: 04/27/18 18:10 Dose: Infused Vancomycin HCl 1,000 mg/ (Sodium Chloride) 250 mls @ 250 mls/hr IV.SIG Q12H [facility] [place] Last Infusion: 04/27/18 14:40 Dose: Infused Lactulose (Lactulose Liq) 30 ml PO DAILY PRN PRN Reason: SEVERE CONSITIPATION Lorazepam (Ativan Inj) 1 mg IV.PUSH Q3H PRN PRN Reason: AGITATION/WITHDRAWAL Last Admin: 04/27/18 15:58 Dose: 1 mg Metoclopramide HCl (Reglan Inj) 5 mg IV.PUSH Q6HR PRN; Protocol PRN Reason: NAUSEA OR VOMITING Miscellaneous Information ([facility] Nursing Information) 1 each OTHER UNSCH PRN PRN Reason: SEE LABEL COMMENTS Stop: 04/28/18 03:36 Miscellaneous Information ([facility] Ordered Lab Info) 0 each OTHER ONCE ONE Stop: 04/28/18 11:46 Morphine Sulfate (Morphine Inj) 2 mg IV.PUSH Q4H PRN PRN Reason: PAIN 6-10 Last Admin: 04/27/18 01:12 Dose: 2 mg Oxycodone HCl (Roxicodone) 10 mg PO Q4H PRN PRN Reason: PAIN 3-5 Last Admin: 04/27/18 13:17 Dose: 10 mg Senna/Docusate Sodium (Yue-Colace) 1 tab PO BID [facility] [place] Last Admin: 04/27/18 10:13 Dose: 1 tab Sennosides (Senokot) 17.2 mg PO Q12H PRN PRN Reason: Moderate Constipation Temazepam (Restoril) 15 mg PO HS PRN PRN Reason: INSOMNIA Allergies Allergy/AdvReac Type Severity Reaction Status Date / Time ibuprofen Allergy Severe Edema Verified 04/26/18 20:38 Home Medications Medication Instructions Recorded Confirmed Type No Known Home Medications 04/26/18 04/26/18 History Exam Vital signs: Vital Signs 04/26/18 20:35 04/26/18 20:42 04/26/18 22:19 Temperature 99.8 F H Pulse Rate 103 H 103 H 88 Respiratory Rate 20 22 18 Blood Pressure 119/69 116/56 L 104/84 Pulse Oximetry 99 98 99 04/27/18 00:00 04/27/18 02:56 04/27/18 03:00 Temperature 99.0 F Pulse Rate 90 98 H 104 H Respiratory Rate 18 16 Blood Pressure 97/70 L 97/64 L 93/62 L Pulse Oximetry 95 96 04/27/18 03:13 04/27/18 03:15 04/27/18 03:30 Temperature 98.3 F Pulse Rate 91 H 92 H Respiratory Rate 13 Blood Pressure 97/61 L 98/59 L Pulse Oximetry 96 99 97 04/27/18 03:45 04/27/18 03:48 04/27/18 04:00 Temperature 98.6 F Pulse Rate 88 92 H Respiratory Rate 13 15 15 Blood Pressure 98/55 L 97/58 L Pulse Oximetry 98 96 96 04/27/18 06:27 04/27/18 07:18 04/27/18 09:55 Temperature 98.4 F Pulse Rate 76 Respiratory Rate 15 18 Blood Pressure 92/50 L 111/62 Pulse Oximetry 99 04/27/18 12:00 04/27/18 15:36 Temperature 97.8 F 98.3 F Pulse Rate 74 80 Respiratory Rate 16 18 Blood Pressure 107/70 110/60 Pulse Oximetry 98 96 Intake & Output 04/26/18 04/27/18 04/27/18 18:59 06:59 18:59 Intake Total 900 / 900 650 / 650 Balance 900 / 900 650 / 650 Weight 77 kg Intake: IV 900 / 900 650 / 650 NS Inj 1,000 ML @ 100 mls/hr IV 0 / 0 .CONT .Q10H [facility] Rx#:[id number] Maxipime Inj 2,000 MG In NS Inj 200 / 200 100 ML @ 200 mls/hr IV.SIG Q8H [facility] Rx#:[id number] Zosyn 3.375 GM Premix 50 ML @ 50 / 50 100 mls/hr IV.SIG ONCE ONE Rx#: [id number] NS Inj 500 ML @ Wide Open IV. 500 / 500 SIG BOLUS ONE Rx#:[id number] Vancomycin Inj 1,000 MG In NS 250 / 250 250 / 250 Inj 250 ML @ 250 mls/hr IV.SIG Q12H [facility] [place] Rx#:[id number] Flagyl 500 MG Inj 100 ML @ 100 100 / 100 200 / 200 mls/hr IV.SIG Q8H [facility] [place] Rx#: [id number] Other: Date of Last Bowel Movement 04/26/18 - Constitutional no acute distress - Routine HEENT Exam Head: Present: normocephalic, atraumatic Eye: Present: EOMI, PERRL ENT: Present: mucous membranes moist, oropharynx clear - Routine Neck Exam Present: supple, full ROM - Routine Respiratory Exam Present: CTA bilaterally Comments: good air movement - Routine Cardiovascular Exam Present: RRR, S1, S2 Comments: well perfused perifery - Routine Abdominal Exam Present: soft, normoactive bowel sounds Comments: no organomegaly, no mass - Routine Extremities Exam Present: tenderness - Detailed Lower Extremity Exam Foot/Toes: Left erythema, Left swelling, Left tenderness, Left wound (VAC in plalce with serosang d/c) - Routine Skin Exam Present: intact Comments: no rash - Routine Neurological Exam Present: alert, oriented X3, CN II-XII intact, normal speech - Routine Psychiatric Exam Present: normal affect, cooperative Results - Labs CBC & Chem 7: 05/10/18 05:45 05/13/18 06:13 Labs: Laboratory Results - last 24 hr 04/26/18 04/26/18 04/26/18 21:12 21:12 21:12 WBC 18.7 H RBC 4.58 Hgb 10.3 L Hct 32.1 L MCV 70.0 L MCH 22.6 L MCHC 32.2 RDW 17.3 H Plt Count 513 H MPV 9.5 Neut % (Auto) 73.8 H Lymph % (Auto) 18.0 Glenn % (Auto) 7.6 Eos % (Auto) 0.1 Baso % (Auto) 0.5 Neut # (Auto) 13.8 H Lymph # (Auto) 3.4 Glenn # (Auto) 1.4 H Eos # (Auto) 0.0 Baso # (Auto) 0.1 WBC Differential . Differential Comment Auto diff final Sodium 134 L Potassium 2.7 L* Chloride 98 Carbon Dioxide 23.2 Anion Gap 13 BUN 7 Creatinine 0.98 Estimated GFR 62 L Random Glucose 112 H Lactic Acid 1.8 Calcium 8.8 Total Bilirubin 0.6 AST 18 ALT 12 Alkaline Phosphatase 64 Total Protein 7.8 Albumin 2.5 L Urine Color Urine Clarity Urine pH Ur Specific [place] Urine Protein Urine Glucose (UA) Urine Ketones Urine Occult Blood Urine Nitrate Urine Bilirubin Urine Urobilinogen Ur Leukocyte Esterase Urine RBC Urine WBC Ur Squamous Epith Cells Urine Bacteria Hyaline Casts Urine Mucus Micro UA Comment Urine Culture Comments 04/27/18 04/27/18 04/27/18 00:40 08:55 08:55 WBC 20.7 H RBC 3.90 L Hgb 9.0 L Hct 27.9 L MCV 71.5 L MCH 23.0 L MCHC 32.2 RDW 17.6 H Plt Count 470 H MPV 9.2 Neut % (Auto) 92.6 H Lymph % (Auto) 4.8 L Glenn % (Auto) 2.5 Eos % (Auto) 0.0 Baso % (Auto) 0.1 Neut # (Auto) 19.2 H Lymph # (Auto) 1.0 Glenn # (Auto) 0.5 Eos # (Auto) 0.0 Baso # (Auto) 0.0 WBC Differential . Differential Comment Auto diff final Sodium 140 Potassium 3.4 L Chloride 107 D Carbon Dioxide 24.1 Anion Gap 9 BUN 9 Creatinine 0.87 Estimated GFR 71 L Random Glucose 197 H Lactic Acid Calcium 8.5 Total Bilirubin 0.3 AST 16 ALT 12 Alkaline Phosphatase 128 H Total Protein 6.9 D Albumin 2.2 L Urine Color Jerilyn Urine Clarity Turbid H Urine pH 5.0 Ur Specific [place] 1.026 Urine Protein 30 H Urine Glucose (UA) Negative Urine Ketones Negative Urine Occult Blood Small H Urine Nitrate Negative Urine Bilirubin Negative Urine Urobilinogen 2.0 H Ur Leukocyte Esterase Trace H Urine RBC 55 H Urine WBC 62 H Ur Squamous Epith Cells 127 Urine Bacteria Moderate H Hyaline Casts 29 Urine Mucus Many H Micro UA Comment Culture indicated Urine Culture Comments Culture indicated - Imaging Impressions Ankle X-Ray 04/26/18 23:12 CONCLUSION: Extensive soft tissue swelling with air in the soft tissues of the lateral left foot posteriorly characteristic of infection with gas producing organism. Foot X-Ray 04/26/18 23:12 CONCLUSION: Infection of the lateral posterior left foot with gas producing organism. No acute bony abnormality identified on plain film. Assessment and Plan (1) Foot infection Status: Acute Code(s): L08.9 - Local infection of the skin and subcutaneous tissue, unspecified (2) IVDU (intravenous drug user) Status: Acute Code(s): F19.90 - Other psychoactive substance use, unspecified , uncomplicated - Plan L foot infection with gas producing organism s/p emergent I+D, VAC placement cont vancomycin change cefepime, flagyl to zosyn fu foot clx untill finla anticipate eventual transition to oral abx
[2018-04-27] MEDS: Piperacil/Tazo 3.375 GM Premix 50 ML IV.SIG SCH (22:40)
[2018-04-28] MEDS: Vancomycin Inj 1,000 MG in Sodium Chlor 0.9% Inj 250 ML IV.SIG SCH ×2 (00:46→13:08)
[2018-04-28] MEDS: HYDROmorphone PF Inj 2 MG/ML Vial IV.PUSH PRN ×3 (01:59→16:10)
[2018-04-28] MEDS: Piperacil/Tazo 3.375 GM Premix 50 ML IV.SIG SCH ×4 (04:15→20:43)
[2018-04-28] MEDS: Sod Chloride 0.9% Inj 1,000 ML IV.CONT SCH ×3 (04:18→15:34)
[2018-04-28] MEDS: Morphine Inj 4 MG/ML Vial IV.PUSH PRN ×3 (08:48→22:03)
[2018-04-28] MEDS: Senna/Docusate Sodium 8.6/50 MG Tablet PO SCH ×2 (08:55→20:25)
--- NOTE | 2018-04-28 09:59 | P.PN ---
Subjective Interval history: Follow up for left foot infection, sepsis. Patient seen and examined today. Reports continued to have pain on the left ankle area, edema, aggravated by movement, touching, unrelieved by current pain medication. Patient is pain seeking and wanting more pain medications. Discussed with patient adjustment with pain medications. Discussed with nursing. Continue with a wound VAC. Denies SOB/ dyspnea. Denies chest pain, palpitations, headaches, dizziness. Denies fevers, chills, n/v/d. Denies dysuria. Physical Exam Vital signs: Vital Signs 04/27/18 12:00 04/27/18 15:36 04/27/18 20:00 Temperature 97.8 F 98.3 F 99.1 F Pulse Rate 74 80 73 Respiratory Rate 16 18 16 Blood Pressure 107/70 110/60 97/53 L Pulse Oximetry 98 96 97 04/27/18 21:24 04/27/18 23:02 04/28/18 04:00 Temperature 98.6 F Pulse Rate 91 H 73 Respiratory Rate 18 16 Blood Pressure 137/87 106/57 L Pulse Oximetry 98 04/28/18 08:00 Temperature 98.7 F Pulse Rate 74 Respiratory Rate 18 Blood Pressure 135/83 Pulse Oximetry Intake & Output 04/27/18 04/28/18 04/28/18 18:59 06:59 18:59 Intake Total 650 / 650 1350 / 1350 Balance 650 / 650 1350 / 1350 Intake: IV 650 / 650 1350 / 1350 NS Inj 1,000 ML @ 100 mls/hr IV 1000 / 1000 .CONT .Q10H [facility] Rx#:[id number] Maxipime Inj 2,000 MG In NS Inj 200 / 200 100 ML @ 200 mls/hr IV.SIG Q8H [facility] Rx#:[id number] Zosyn 3.375 GM Premix 50 ML @ 100 / 100 100 mls/hr IV.SIG Q6H [facility] Rx#: [id number] Vancomycin Inj 1,000 MG In NS 250 / 250 250 / 250 Inj 250 ML @ 250 mls/hr IV.SIG Q12H [facility] Rx#:[id number] Flagyl 500 MG Inj 100 ML @ 100 200 / 200 mls/hr IV.SIG Q8H [facility] Rx#: [id number] Other: # Voids 1 Date of Last Bowel Movement 04/26/18 04/26/18 Narrative: GENERAL: Well-nourished, well-developed middle aged female patient in [facility]. SKIN: Warm and dry. No rash. HEENT: Normocephalic. Atraumatic. Pupils equal and round. Mucous membranes pink and moist. CARDIOVASCULAR: Regular rate and rhythm. No murmur appreciated. RESPIRATORY: No accessory muscle use. Clear to auscultation. Breath sounds equal bilaterally. GASTROINTESTINAL: Abdomen soft, non-tender, nondistended. Normoactive bowel sounds x4. MUSCULOSKELETAL: No obvious deformities. Left lateral ankle with wound vac in place, surrounding erythema/edema that extends up to the mid calf. NEUROLOGICAL: Awake and alert. No obvious cranial nerve deficits. Motor grossly within normal limits. Moving all extremities spontaneously. Normal speech. Results - Labs CBC & Chem 7: 04/27/18 08:55 04/27/18 08:55 Laboratory Results - last 24 hr 04/27/18 08:55 Sodium 140 Potassium 3.4 L Chloride 107 D Carbon Dioxide 24.1 Anion Gap 9 BUN 9 Creatinine 0.87 Estimated GFR 71 L Random Glucose 197 H Calcium 8.5 Total Bilirubin 0.3 AST 16 ALT 12 Alkaline Phosphatase 128 H Total Protein 6.9 D Albumin 2.2 L Microbiology 04/27/18 02:35 Wound - Ankle Acid Fast Bacilli Smear - Final No acid fast bacilli seen 04/27/18 02:30 Wound - Ankle Acid Fast Bacilli Smear - Final No acid fast bacilli seen 04/27/18 02:30 Wound - Ankle Fungal Smear - Final No fungal elements seen 04/27/18 02:35 Wound - Ankle Gram Stain - Final 04/27/18 02:35 Wound - Ankle Fungal Smear - Final No fungal elements seen 04/27/18 02:30 Wound - Ankle Gram Stain - Final 04/26/18 21:05 Blood - Peripheral Aerobic Blood Culture - Preliminary No growth in 1 day 04/26/18 21:05 Blood - Peripheral Anaerobic Blood Culture - Preliminary No growth in 1 day 04/26/18 21:12 Blood - Peripheral Aerobic Blood Culture - Preliminary No growth in 1 day 04/26/18 21:12 Blood - Peripheral Anaerobic Blood Culture - Preliminary No growth in 1 day - Procedures 04/26/18 - Dr. Conteh - Left ankle incision drainage debridement with application of wound vac Assessment and Plan - Assessment (1) Sepsis Code(s): A41.9 - Sepsis, unspecified organism Status: Acute (2) Foot infection Code(s): L08.9 - Local infection of the skin and subcutaneous tissue, unspecified Status: Acute (3) IVDU (intravenous drug user) Code(s): F19.90 - Other psychoactive substance use, unspecified, uncomplicated Status: Acute (4) Hypokalemia Code(s): E87.6 - Hypokalemia Status: Acute - Plan 43-year-old female with a PMH of IVDU presents to ER with complaints of left foot swelling and tenderness x1 wk after injecting IV drugs into left foot. Seen in ER on 04/23/18 for similar symptoms, d/c'd w/ Bactrim/Keflex, non- compliant w/ antibiotics. Sepsis: Temp 99, HR 103, WBC 18, Source-Left foot infection. Lactic acid 1.8. Left Foot Infection: after IVDU. +leukocytosis WBC 18K, tachycardia HR 103, temp 99.8. -X-ray reviewed, shows infection from gas producing organism -Podiatry consulted -04/26 S/p Left ankle incision drainage debridement with application of wound vac by Dr. Conteh -Continue antibiotics with IV Vanco/Zosyn -Consult ID appreciate recommendations -Supportive treatment with IVF, pain control with oxycodone prn, IV dilaudid -Elevate LLE -monitor blood cultures IVDU: ongoing -Counseled on cessation -Ativan prn for withdrawal. DVT Prophylaxis: Mechanical contraindication due to wound.
[2018-04-28] MEDS ORDERED: Pharmacy Ordered Lab Info OTHER ONE (11:45)
--- NOTE | 2018-04-28 12:38 | P.PNID ---
Subjective Remarks: co severe L foot pain no fever blood clx are negative Antibiotics: zosyn, vanco Allergies/Adverse Reactions: Allergies ibuprofen Allergy (Severe, Verified 04/26/18 20:38) Edema pt states she "swells up and it goes to my throat" Objective Vital Signs 04/27/18 15:36 04/27/18 20:00 04/27/18 21:24 Temperature 98.3 F 99.1 F Pulse Rate 80 73 91 H Respiratory Rate 18 16 Blood Pressure 110/60 97/53 L 137/87 Pulse Oximetry 96 97 04/27/18 23:02 04/28/18 04:00 04/28/18 08:00 Temperature 98.6 F 98.7 F Pulse Rate 73 74 Respiratory Rate 18 16 18 Blood Pressure 106/57 L 135/83 Pulse Oximetry 98 04/28/18 11:35 Temperature 98.7 F Pulse Rate 76 Respiratory Rate 20 Blood Pressure 131/86 Pulse Oximetry 98 Intake & Output 04/27/18 04/28/18 04/28/18 18:59 06:59 18:59 Intake Total 650 / 650 1350 / 1350 50 / 50 Balance 650 / 650 1350 / 1350 50 / 50 Intake: IV 650 / 650 1350 / 1350 50 / 50 NS Inj 1,000 ML @ 100 mls/hr IV 1000 / 1000 .CONT .Q10H [facility] Rx#:[id number] Maxipime Inj 2,000 MG In NS Inj 200 / 200 100 ML @ 200 mls/hr IV.SIG Q8H [facility] Rx#:[id number] Zosyn 3.375 GM Premix 50 ML @ 100 / 100 50 / 50 100 mls/hr IV.SIG Q6H [facility] Rx#: [id number] Vancomycin Inj 1,000 MG In NS 250 / 250 250 / 250 Inj 250 ML @ 250 mls/hr IV.SIG Q12H [facility] Rx#:[id number] Flagyl 500 MG Inj 100 ML @ 100 200 / 200 mls/hr IV.SIG Q8H [facility] Rx#: [id number] Other: # Voids 1 Date of Last Bowel Movement 04/26/18 04/26/18 04/27/18 00:40 Clean Catch Urine Urine Culture - Final 50-100,000 cfu/mL mixed gram positive amarilys (probable contaminants) 04/26/18 21:05 Blood - Peripheral Aerobic Blood Culture - Preliminary No growth in 2 days 04/26/18 21:05 Blood - Peripheral Anaerobic Blood Culture - Preliminary No growth in 2 days 04/26/18 21:12 Blood - Peripheral Aerobic Blood Culture - Preliminary No growth in 2 days 04/26/18 21:12 Blood - Peripheral Anaerobic Blood Culture - Preliminary No growth in 2 days 04/27/18 02:35 Wound - Ankle Acid Fast Bacilli Smear - Final No acid fast bacilli seen 04/27/18 02:35 Wound - Ankle Mycobacterial Culture - Pending 04/27/18 02:30 Wound - Ankle Acid Fast Bacilli Smear - Final No acid fast bacilli seen 04/27/18 02:30 Wound - Ankle Mycobacterial Culture - Pending 04/27/18 02:30 Wound - Ankle Fungal Smear - Final No fungal elements seen 04/27/18 02:30 Wound - Ankle Fungal Culture - Pending 04/27/18 02:35 Wound - Ankle Gram Stain - Final 04/27/18 02:35 Wound - Ankle Wound Culture - Pending 04/27/18 02:35 Wound - Ankle Fungal Smear - Final No fungal elements seen 04/27/18 02:35 Wound - Ankle Fungal Culture - Pending 04/27/18 02:30 Wound - Ankle Gram Stain - Final 04/27/18 02:30 Wound - Ankle Wound Culture - Pending Lab - Hematology Results 04/26/18 04/27/18 21:12 08:55 WBC 18.7 H 20.7 H RBC 4.58 3.90 L Hgb 10.3 L 9.0 L Hct 32.1 L 27.9 L MCV 70.0 L 71.5 L MCH 22.6 L 23.0 L MCHC 32.2 32.2 RDW 17.3 H 17.6 H Plt Count 513 H 470 H MPV 9.5 9.2 Neut % (Auto) 73.8 H 92.6 H Lymph % (Auto) 18.0 4.8 L Villalba % (Auto) 7.6 2.5 Eos % (Auto) 0.1 0.0 Baso % (Auto) 0.5 0.1 Neut # (Auto) 13.8 H 19.2 H Lymph # (Auto) 3.4 1.0 Villalba # (Auto) 1.4 H 0.5 Eos # (Auto) 0.0 0.0 Baso # (Auto) 0.1 0.0 WBC Differential . . Differential Comment Auto diff final Auto diff final Lab - Chemistry Results 04/26/18 04/26/18 04/27/18 21:12 21:12 08:55 Sodium 134 L 140 Potassium 2.7 L* 3.4 L Chloride 98 107 D Carbon Dioxide 23.2 24.1 Anion Gap 13 9 BUN 7 9 Creatinine 0.98 0.87 Estimated GFR 62 L 71 L Random Glucose 112 H 197 H Lactic Acid 1.8 Calcium 8.8 8.5 Total Bilirubin 0.6 0.3 AST 18 16 ALT 12 12 Alkaline Phosphatase 64 128 H Total Protein 7.8 6.9 D Albumin 2.5 L 2.2 L Imaging: ITS Impressions Ankle X-Ray 04/26/18 23:12 CONCLUSION: Extensive soft tissue swelling with air in the soft tissues of the lateral left foot posteriorly characteristic of infection with gas producing organism. Foot X-Ray 04/26/18 23:12 CONCLUSION: Infection of the lateral posterior left foot with gas producing organism. No acute bony abnormality identified on plain film. Physical Exam: GENERAL: SKIN: Warm and dry. HEAD: Normocephalic. EYES: No scleral icterus. No injection or drainage. NECK: Supple, trachea midline. No JVD or lymphadenopathy. CARDIOVASCULAR: Regular rate and rhythm without murmurs, gallops, or rubs. RESPIRATORY: Breath sounds equal bilaterally. No accessory muscle use. GASTROINTESTINAL: Abdomen soft, non-tender, nondistended. MUSCULOSKELETAL: No cyanosis, or edema. L Foot/Toes: Left foot erythema, Left swelling, Left tenderness, Left wound (VAC in plalce with serosang d/c) - erythema, redness improved BACK: Nontender without obvious deformity. No CVA tenderness. no acute distress Assessment and Plan (1) Foot infection Status: Acute Code(s): L08.9 - Local infection of the skin and subcutaneous tissue, unspecified (2) IVDU (intravenous drug user) Status: Acute Code(s): F19.90 - Other psychoactive substance use, unspecified , uncomplicated - Plan Assessment and Plan (1) Foot infection Status: Acute Code(s): L08.9 - Local infection of the skin and subcutaneous tissue, unspecified (2) IVDU (intravenous drug user) Status: Acute Code(s): F19.90 - Other psychoactive substance use, unspecified , uncomplicated - Plan L foot infection with gas producing organism s/p emergent I+D, VAC placement cont vancomycin, zosyn fu foot clx untill johanna anticipate eventual transition to oral abx per culture report
--- NOTE | 2018-04-28 16:28 | P.PNPOD ---
Subjective Interval history: Some improvement of left foot and ankle pain however requesting increase in pain medications otherwise no events since surgery Physical Exam Vital signs: Vital Signs 04/27/18 20:00 04/27/18 21:24 04/27/18 23:02 Temperature 99.1 F Pulse Rate 73 91 H Respiratory Rate 16 18 Blood Pressure 97/53 L 137/87 Pulse Oximetry 97 04/28/18 04:00 04/28/18 08:00 04/28/18 11:35 Temperature 98.6 F 98.7 F 98.7 F Pulse Rate 73 74 76 Respiratory Rate 16 18 20 Blood Pressure 106/57 L 135/83 131/86 Pulse Oximetry 98 98 Intake & Output 04/27/18 04/28/18 04/28/18 18:59 06:59 18:59 Intake Total 650 / 650 1350 / 1350 1300 / 1300 Balance 650 / 650 1350 / 1350 1300 / 1300 Intake: IV 650 / 650 1350 / 1350 1300 / 1300 NS Inj 1,000 ML @ 100 mls/hr IV 1000 / 1000 1000 / 1000 .CONT .Q10H [facility] Rx#:[id number] Maxipime Inj 2,000 MG In NS Inj 200 / 200 100 ML @ 200 mls/hr IV.SIG Q8H [facility] Rx#:[id number] Zosyn 3.375 GM Premix 50 ML @ 100 / 100 50 / 50 100 mls/hr IV.SIG Q6H [facility] Rx#: [id number] Vancomycin Inj 1,000 MG In NS 250 / 250 250 / 250 250 / 250 Inj 250 ML @ 250 mls/hr IV.SIG Q12H [facility] Rx#:[id number] Flagyl 500 MG Inj 100 ML @ 100 200 / 200 mls/hr IV.SIG Q8H [facility] Rx#: [id number] Other: # Voids 1 Date of Last Bowel Movement 04/26/18 04/26/18 Narrative: Distal left lateral ankle with wound VAC intact, significant edema and erythema of left foot and ankle no further spread of necrosis crepitus or soft tissue emphysema it appears improved since surgery pedal pulses palpable sensation intact Medications and Allergies Active Medications: Active Medications Acetaminophen (Tylenol) 650 mg PO Q4H PRN PRN Reason: Temp > 100.4 Al Hydroxide/Mg Hydroxide (Milk Of Magnesia Liq) 30 ml PO Q12H PRN PRN Reason: Mild Constipation Bisacodyl (Dulcolax Supp) 10 mg RECTAL DAILY PRN PRN Reason: SEVERE CONSITIPATION Hydromorphone HCl (Dilaudid Pf Inj) 2 mg IV.PUSH Q4H PRN PRN Reason: BREAKTHROUGH PAIN Last Admin: 04/28/18 16:10 Dose: 2 mg Sodium Chloride (Ns Inj) 1,000 mls @ 100 mls/hr IV.CONT .Q10H [facility] Last Admin: 04/28/18 15:34 Dose: 100 mls/hr Pharmacy Profile Note (Vancomycin Consult Pharmacy) 0 mls @ 0 mls/hr OTHER UNSCH [facility] Piperacillin/Tazobactam/Dextrose (Zosyn 3.375 Gm Premix) 50 mls @ 100 mls/hr IV.SIG Q6H [facility] Last Admin: 04/28/18 16:10 Dose: 100 mls/hr Vancomycin HCl 1,250 mg/ (Sodium Chloride) 262.5 mls @ 250 mls/hr IV.SIG Q12H [facility] Lactulose (Lactulose Liq) 30 ml PO DAILY PRN PRN Reason: SEVERE CONSITIPATION Lorazepam (Ativan Inj) 1 mg IV.PUSH Q3H PRN PRN Reason: AGITATION/WITHDRAWAL Last Admin: 04/28/18 13:09 Dose: 1 mg Metoclopramide HCl (Reglan Inj) 5 mg IV.PUSH Q6HR PRN; Protocol PRN Reason: NAUSEA OR VOMITING Miscellaneous Information ([facility] Ordered Lab Info) 0 each OTHER ONCE ONE Stop: 04/30/18 00:46 Morphine Sulfate (Morphine Inj) 2 mg IV.PUSH Q4H PRN PRN Reason: PAIN 7-10 Last Admin: 04/28/18 15:33 Dose: 2 mg Oxycodone HCl (Roxicodone) 10 mg PO Q4H PRN PRN Reason: Pain 3-6 Last Admin: 04/27/18 13:17 Dose: 10 mg Senna/Docusate Sodium (Yue-Colace) 1 tab PO BID [facility] Last Admin: 04/28/18 08:55 Dose: 1 tab Sennosides (Senokot) 17.2 mg PO Q12H PRN PRN Reason: Moderate Constipation Temazepam (Restoril) 15 mg PO HS PRN PRN Reason: INSOMNIA Allergies Allergy/AdvReac Type Severity Reaction Status Date / Time ibuprofen Allergy Severe Edema Verified 04/26/18 20:38 Home Medications Medication Instructions Recorded Confirmed Type No Known Home Medications 04/26/18 04/26/18 History Results - Labs CBC & Chem 7: 04/27/18 08:55 04/27/18 08:55 Laboratory Results - last 24 hr 04/28/18 11:48 Vancomycin Trough 7.2 Microbiology 04/27/18 02:35 Wound - Ankle Gram Stain - Final 04/27/18 02:35 Wound - Ankle Wound Culture - Preliminary gram negative rods 04/27/18 02:30 Wound - Ankle Gram Stain - Final 04/27/18 02:30 Wound - Ankle Wound Culture - Preliminary gram negative rods 04/27/18 00:40 Clean Catch Urine Urine Culture - Final 50-100,000 cfu/mL mixed gram positive amarilys (probable contaminants) 04/26/18 21:05 Blood - Peripheral Aerobic Blood Culture - Preliminary No growth in 2 days 04/26/18 21:05 Blood - Peripheral Anaerobic Blood Culture - Preliminary No growth in 2 days 04/26/18 21:12 Blood - Peripheral Aerobic Blood Culture - Preliminary No growth in 2 days 04/26/18 21:12 Blood - Peripheral Anaerobic Blood Culture - Preliminary No growth in 2 days 04/27/18 02:35 Wound - Ankle Acid Fast Bacilli Smear - Final No acid fast bacilli seen 04/27/18 02:30 Wound - Ankle Acid Fast Bacilli Smear - Final No acid fast bacilli seen 04/27/18 02:30 Wound - Ankle Fungal Smear - Final No fungal elements seen 04/27/18 02:35 Wound - Ankle Fungal Smear - Final No fungal elements seen - Procedures 04/26/18 - Dr. Conteh - Left ankle incision drainage debridement with application of wound vac Assessment and Plan - Plan OR tomorrow late afternoon for repeat incision drainage debridement and application of wound VAC. Patient will likely need long-term wound VAC for delayed primary closure of wound, continue IV antibiotics, we will repeat cultures
[2018-04-28] MEDS: Temazepam 15 MG Capsule PO PRN (20:27)
[2018-04-29] MEDS: HYDROmorphone PF Inj 2 MG/ML Vial IV.PUSH PRN ×6 (00:54→23:16)
[2018-04-29] MEDS: Vancomycin Inj 1,250 MG in Sodium Chlor 0.9% Inj 250 ML IV.SIG SCH ×2 (00:55→12:13)
[2018-04-29] MEDS: Sod Chloride 0.9% Inj 1,000 ML IV.CONT SCH ×3 (02:00→22:53)
[2018-04-29] MEDS: Morphine Inj 4 MG/ML Vial IV.PUSH PRN ×4 (02:23→16:59)
[2018-04-29] MEDS: Piperacil/Tazo 3.375 GM Premix 50 ML IV.SIG SCH ×4 (02:23→22:53)
[2018-04-29] MEDS ORDERED: Chlorhexidine Gluconate 2% 1 Pack (2 Cloths) TOPICAL SCH (07:00)
[2018-04-29] MEDS ORDERED: Sodium Chlor 0.9% Inj 500 ML IV.SIG SCH (07:00)
[2018-04-29] MEDS ORDERED: Metoprolol Tartrate 25 MG Tablet PO SCH (07:00)
[2018-04-29] MEDS: Senna/Docusate Sodium 8.6/50 MG Tablet PO SCH ×3 (08:21→22:54)
[2018-04-29 08:58] LABS: Baso # (Auto) 0.1 th/mm3 (0.0-0.2); Baso % (Auto) 1.1 % (0.0-2.0); Eos # (Auto) 0.2 th/mm3 (0.0-0.4); Eos % (Auto) 2.5 % (0.0-4.0); Hematocrit 26.4 % (35.0-46.0); Hemoglobin 8.3 gm/dL (11.6-15.3); Lymph # (Auto) 2.8 th/mm3 (1.0-4.8); Lymph % (Auto) 39.6 % (9.0-44.0); Mean Corpuscular HGB Conc 31.5 % (32.0-36.0); Mean Corpuscular Hemoglobin 22.7 pg (27.0-34.0); Mean Corpuscular Volume 72.1 fL (80.0-100.0); Mean Platelet Volume 9.5 fL (7.0-11.0); Mono # (Auto) 0.5 th/mm3 (0.0-0.9); Mono % (Auto) 6.6 % (0.0-8.0); Neut # (Auto) 3.6 th/mm3 (1.8-7.7); Neut % (Auto) 50.2 % (16.0-70.0); Platelet Count 444 th/mm3 (150-450); Red Blood Count 3.66 mil/mm3 (4.00-5.30); Red Cell Distribution Width 16.9 % (11.6-17.2); White Blood Count 7.1 th/mm3 (4.0-11.0)
[2018-04-29 10:12] LABS: Calcium 8.6 mg/dL (8.5-10.1); Carbon Dioxide 25.9 meq/L (21.0-32.0); Potassium 3.3 meq/L (3.5-5.1)
--- NOTE | 2018-04-29 11:59 | P.PN ---
Subjective Interval history: Follow-up for left foot infection, sepsis. Patient is complaining of persistent left foot pain. No fever or chills. She is a scheduled for I&D this afternoon. Physical Exam Vital signs: Vital Signs 04/28/18 16:00 04/28/18 16:39 04/28/18 20:00 Temperature 98.2 F 98.2 F Pulse Rate 78 86 Respiratory Rate 20 18 18 Blood Pressure 139/83 137/80 Pulse Oximetry 98 96 04/28/18 21:11 04/29/18 00:00 04/29/18 00:46 Temperature 99.0 F Pulse Rate 76 Respiratory Rate 18 18 18 Blood Pressure 139/81 Pulse Oximetry 98 04/29/18 01:29 04/29/18 04:00 04/29/18 06:22 Temperature 98.1 F Pulse Rate 69 Respiratory Rate 18 18 Blood Pressure 135/80 Pulse Oximetry 96 04/29/18 08:00 Temperature 99.1 F Pulse Rate 64 Respiratory Rate 16 Blood Pressure 155/75 H Pulse Oximetry 97 Intake & Output 04/28/18 04/29/18 04/29/18 18:59 06:59 18:59 Intake Total 1350 / 1350 1920 / 1920 1312.5 / 1312.5 Output Total Balance 1349 / 1349 1920 / 1920 1312.5 / 1312.5 Weight 92.6 kg Intake: IV 1350 / 1350 500 / 500 1312.5 / 1312.5 NS Inj 1,000 ML @ 100 mls/hr IV 1000 / 1000 400 / 400 1000 / 1000 .CONT .Q10H [facility] Rx#:[id number] Zosyn 3.375 GM Premix 50 ML @ 100 / 100 100 / 100 50 / 50 100 mls/hr IV.SIG Q6H [facility] Rx#: [id number] Vancomycin Inj 1,000 MG In NS 250 / 250 Inj 250 ML @ 250 mls/hr IV.SIG Q12H [facility] Rx#:[id number] Vancomycin Inj 1,250 MG In NS 262.5 / 262.5 Inj 250 ML @ 250 mls/hr IV.SIG Q12H [facility] Rx#:[id number] Oral 220 / 220 Other 1200 / 1200 Output: Urine Other: # Voids 1 5 Date of Last Bowel Movement 04/28/18 # Bowel Movements 1 Narrative: GENERAL: Well-nourished, well-developed middle aged female patient in [facility]. SKIN: Warm and dry. No rash. HEENT: Normocephalic. Atraumatic. Pupils equal and round. Mucous membranes pink and moist. CARDIOVASCULAR: Regular rate and rhythm. No murmur appreciated. RESPIRATORY: No accessory muscle use. Clear to auscultation. Breath sounds equal bilaterally. GASTROINTESTINAL: Abdomen soft, non-tender, nondistended. Normoactive bowel sounds x4. MUSCULOSKELETAL: No obvious deformities. Left lateral ankle with wound vac in place, surrounding erythema/edema that extends up to the mid calf. NEUROLOGICAL: Awake and alert. No obvious cranial nerve deficits. Motor grossly within normal limits. Moving all extremities spontaneously. Normal speech. Results - Labs CBC & Chem 7: 04/29/18 06:51 04/29/18 06:51 Laboratory Results - last 24 hr 04/28/18 04/29/18 04/29/18 11:48 06:51 06:51 WBC 7.1 RBC 3.66 L Hgb 8.3 L Hct 26.4 L MCV 72.1 L MCH 22.7 L MCHC 31.5 L RDW 16.9 Plt Count 444 MPV 9.5 Neut % (Auto) 50.2 Lymph % (Auto) 39.6 [place]son % (Auto) 6.6 Eos % (Auto) 2.5 Baso % (Auto) 1.1 Neut # (Auto) 3.6 Lymph # (Auto) 2.8 [place]son # (Auto) 0.5 Eos # (Auto) 0.2 Baso # (Auto) 0.1 WBC Differential . Differential Comment Auto diff final Sodium 144 Potassium 3.3 L Chloride 108 H Carbon Dioxide 25.9 Anion Gap 10 BUN 6 L Creatinine 0.78 Estimated GFR 81 L Random Glucose 79 D Calcium 8.6 Vancomycin Trough 7.2 Microbiology 04/26/18 21:05 Blood - Peripheral Aerobic Blood Culture - Preliminary No growth in 3 days 04/26/18 21:05 Blood - Peripheral Anaerobic Blood Culture - Preliminary No growth in 3 days 04/26/18 21:12 Blood - Peripheral Aerobic Blood Culture - Preliminary No growth in 3 days 04/26/18 21:12 Blood - Peripheral Anaerobic Blood Culture - Preliminary No growth in 3 days 04/27/18 02:35 Wound - Ankle Gram Stain - Final 04/27/18 02:35 Wound - Ankle Wound Culture - Final Klebsiella pneumoniae 04/27/18 02:30 Wound - Ankle Gram Stain - Final 04/27/18 02:30 Wound - Ankle Wound Culture - Final Klebsiella pneumoniae 04/27/18 00:40 Clean Catch Urine Urine Culture - Final 50-100,000 cfu/mL mixed gram positive amarilys (probable contaminants) 04/27/18 02:35 Wound - Ankle Acid Fast Bacilli Smear - Final No acid fast bacilli seen 04/27/18 02:30 Wound - Ankle Acid Fast Bacilli Smear - Final No acid fast bacilli seen - Procedures 04/26/18 - Dr. Conteh - Left ankle incision drainage debridement with application of wound vac Assessment and Plan - Assessment (1) Sepsis Code(s): A41.9 - Sepsis, unspecified organism Status: Acute (2) Foot infection Code(s): L08.9 - Local infection of the skin and subcutaneous tissue, unspecified Status: Acute (3) IVDU (intravenous drug user) Code(s): F19.90 - Other psychoactive substance use, unspecified, uncomplicated Status: Acute (4) Hypokalemia Code(s): E87.6 - Hypokalemia Status: Acute - Plan 43-year-old female with a PMH of IVDU presents to ER with complaints of left foot swelling and tenderness x1 wk after injecting IV drugs into left foot. Seen in ER on 04/23/18 for similar symptoms, d/c'd w/ Bactrim/Keflex, non- compliant w/ antibiotics. Sepsis - Present on admission (Temp 99, HR 103, WBC 18, Source-Left foot infection. Lactic acid 1.8 ) Left Foot Infection: after IVDU. +leukocytosis WBC 18K, tachycardia HR 103, temp 99.8. -X-ray reviewed, shows infection from gas producing organism -Podiatry consulted -04/26 S/p Left ankle I&D with application of wound vac by Dr. Conteh. Repeat I&D today 04/29/2018. -Continue antibiotics with IV Vanco/Zosyn. Wound cx growing Klebsiella pneumoniae -ID is following. We can likely discontinue gram positive coverage (Vanc). -Supportive treatment with IVF, pain control with oxycodone prn, IV dilaudid -Elevate LLE -monitor blood cultures IVDU: ongoing -Counseled on cessation -Ativan prn for withdrawal. DVT Prophylaxis: Mechanical contraindication due to wound.
--- NOTE | 2018-04-29 19:41 | P.PNID ---
Subjective Remarks: grew Kleb pneumo maddox S co severe L foot pain no fever blood clx are negative Antibiotics: zosyn, vanco Allergies/Adverse Reactions: Allergies ibuprofen Allergy (Severe, Verified 04/26/18 20:38) Edema pt states she "swells up and it goes to my throat" Objective Vital Signs 04/28/18 20:00 04/28/18 21:11 04/29/18 00:00 Temperature 98.2 F 99.0 F Pulse Rate 86 76 Respiratory Rate 18 18 Blood Pressure 137/80 139/81 Pulse Oximetry 96 98 04/29/18 00:46 04/29/18 01:29 04/29/18 04:00 Temperature 98.1 F Pulse Rate 69 Respiratory Rate 18 18 18 Blood Pressure 135/80 Pulse Oximetry 96 04/29/18 06:22 04/29/18 08:00 04/29/18 12:00 Temperature 99.1 F 98.5 F Pulse Rate 64 67 Respiratory Rate 18 16 16 Blood Pressure 155/75 H 162/92 H Pulse Oximetry 97 99 04/29/18 16:00 Temperature 98.3 F Pulse Rate 60 Respiratory Rate 17 Blood Pressure 150/77 H Pulse Oximetry 98 Intake & Output 04/29/18 04/29/18 04/30/18 06:59 18:59 06:59 Intake Total 0 / 1920 1875.0 / 1875.0 Balance 1920 / 1920 1875.0 / 1875.0 Weight 92.6 kg Intake: IV 500 / 500 1875.0 / 1875.0 NS Inj 1,000 ML @ 100 mls/hr IV 400 / 400 1000 / 1000 .CONT .Q10H [facility] Rx#:[id number] Zosyn 3.375 GM Premix 50 ML @ 100 / 100 100 / 100 100 mls/hr IV.SIG Q6H [facility] Rx#: [id number] Vancomycin Inj 1,250 MG In NS 775.0 / 775.0 Inj 250 ML @ 250 mls/hr IV.SIG Q12H [facility] Rx#:[id number] Oral 220 / 220 0 / 0 Other 1200 / 1200 Other: Mode Setting Left Ankle Continuous Continuous # Voids 5 11 Date of Last Bowel Movement 04/28/18 # Bowel Movements 1 0 04/26/18 21:05 Blood - Peripheral Aerobic Blood Culture - Preliminary No growth in 3 days 04/26/18 21:05 Blood - Peripheral Anaerobic Blood Culture - Preliminary No growth in 3 days 04/26/18 21:12 Blood - Peripheral Aerobic Blood Culture - Preliminary No growth in 3 days 04/26/18 21:12 Blood - Peripheral Anaerobic Blood Culture - Preliminary No growth in 3 days 04/27/18 02:35 Wound - Ankle Gram Stain - Final 04/27/18 02:35 Wound - Ankle Wound Culture - Final Klebsiella pneumoniae 04/27/18 02:30 Wound - Ankle Gram Stain - Final 04/27/18 02:30 Wound - Ankle Wound Culture - Final Klebsiella pneumoniae 04/27/18 00:40 Clean Catch Urine Urine Culture - Final 50-100,000 cfu/mL mixed gram positive amarilys (probable contaminants) 04/27/18 02:35 Wound - Ankle Acid Fast Bacilli Smear - Final No acid fast bacilli seen 04/27/18 02:35 Wound - Ankle Mycobacterial Culture - Pending 04/27/18 02:30 Wound - Ankle Acid Fast Bacilli Smear - Final No acid fast bacilli seen 04/27/18 02:30 Wound - Ankle Mycobacterial Culture - Pending 04/27/18 02:30 Wound - Ankle Fungal Smear - Final No fungal elements seen 04/27/18 02:30 Wound - Ankle Fungal Culture - Pending 04/27/18 02:35 Wound - Ankle Fungal Smear - Final No fungal elements seen 04/27/18 02:35 Wound - Ankle Fungal Culture - Pending Lab - Hematology Results 04/29/18 06:51 WBC 7.1 RBC 3.66 L Hgb 8.3 L Hct 26.4 L MCV 72.1 L MCH 22.7 L MCHC 31.5 L RDW 16.9 Plt Count 444 MPV 9.5 Neut % (Auto) 50.2 Lymph % (Auto) 39.6 [place] % (Auto) 6.6 Eos % (Auto) 2.5 Baso % (Auto) 1.1 Neut # (Auto) 3.6 Lymph # (Auto) 2.8 [place] # (Auto) 0.5 Eos # (Auto) 0.2 Baso # (Auto) 0.1 WBC Differential . Differential Comment Auto diff final Lab - Chemistry Results 04/29/18 06:51 Sodium 144 Potassium 3.3 L Chloride 108 H Carbon Dioxide 25.9 Anion Gap 10 BUN 6 L Creatinine 0.78 Estimated GFR 81 L Random Glucose 79 D Calcium 8.6 Imaging: ITS Impressions Ankle X-Ray 04/26/18 23:12 CONCLUSION: Extensive soft tissue swelling with air in the soft tissues of the lateral left foot posteriorly characteristic of infection with gas producing organism. Foot X-Ray 04/26/18 23:12 CONCLUSION: Infection of the lateral posterior left foot with gas producing organism. No acute bony abnormality identified on plain film. Physical Exam: GENERAL: SKIN: Warm and dry. HEAD: Normocephalic. EYES: No scleral icterus. No injection or drainage. NECK: Supple, trachea midline. No JVD or lymphadenopathy. CARDIOVASCULAR: Regular rate and rhythm without murmurs, gallops, or rubs. RESPIRATORY: Breath sounds equal bilaterally. No accessory muscle use. GASTROINTESTINAL: Abdomen soft, non-tender, nondistended. MUSCULOSKELETAL: No cyanosis, or edema. L Foot/Toes: Left foot erythema, Left swelling, Left tenderness, Left wound (VAC in plalce with serosang d/c) - erythema, redness improved still proinent fullness of the foot BACK: Nontender without obvious deformity. No CVA tenderness. no acute distress Assessment and Plan (1) Foot infection Status: Acute Code(s): L08.9 - Local infection of the skin and subcutaneous tissue, unspecified (2) IVDU (intravenous drug user) Status: Acute Code(s): F19.90 - Other psychoactive substance use, unspecified , uncomplicated - Plan Assessment and Plan (1) Foot infection Status: Acute Code(s): L08.9 - Local infection of the skin and subcutaneous tissue, unspecified (2) IVDU (intravenous drug user) Status: Acute Code(s): F19.90 - Other psychoactive substance use, unspecified , uncomplicated - Plan L foot infection with gas producing organism s/p emergent I+D, VAC placement cont, zosyn dc vancomycin to OR today will fu report dw Dr Nicole
--- NOTE | 2018-04-29 21:08 | P.BOP ---
- Preoperative Diagnosis (1) Foot infection (2) Gas gangrene (3) Foot ulcer with necrosis of muscle (4) Ulcer of ankle - Postoperative Diagnosis (1) Foot infection (2) Gas gangrene (3) Foot ulcer with necrosis of muscle (4) Ulcer of ankle Date of procedure: 04/29/18 Procedure: Left foot ankle incision drainage debridement with application of wound vac Anesthesia: GETA Surgeon: Jonas Slater DPM Estimated blood loss (mL): 20 (mL) Tourniquet time (min): 0 Pathology: none sent Condition: stable Disposition: PACU
[2018-04-29] MEDS ORDERED: fentaNYL Citrate Inj 100 MCG/2 ML Ampul ONE (21:13)
[2018-04-29] MEDS ORDERED: *morphine SULFATE 10 MG/ML PERIprocedure ONLY ONE (21:19)
--- NOTE | 2018-04-29 21:43 | MP ---
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 POSTOPERATIVE DIAGNOSIS: Left foot ankle gas gangrene post-surgical ulcer full-thickness PROCEDURE: Left foot incision, drainage, debridement of foot and ankle with application of wound VAC. ESTIMATED BLOOD LOSS: Less than 20 mL ANESTHESIA: General. INJECTABLES: None. TOURNIQUET: None. PATHOLOGY: None. CONDITION: Stable. DISPOSITION: PACU, then returned to floor. Continue monitoring for improvement of infection. HISTORY OF PRESENT ILLNESS: A 43-year-old female status post incision and drainage secondary to gas gangrene infection. This is a repeat incision and drainage to further evaluate the wound. The patient may need multiple repeat incision and drainage over the next week or so possibly needing a skin graft once the infection is cleared. PROCEDURE IN DETAIL: Under mild sedation, the patient was brought into the operating room, placed on the operating table in the supine position. Following the induction of general anesthesia, the left lower extremity was scrubbed, prepped and draped in the usual aseptic fashion. The foot was elevated and examined. The wound VAC was removed. There was noted to be mixed fibrotic tissue, minimal purulence and ischemic skin edges at the wound periphery. Sharp dissection took place removing the necrotic skin borders. Wound measurements were now approximately 6 x 8 cm with approximately 1 cm of depth. This was down to deep fascia muscle belly, but did not involve peroneal tendons. A curettage rongeur was used to debride all nonviable tissue to viable bleeding tissue. The wound was flushed with 3 liters normal saline, Adaptic was placed on the wound. Adequate seal and suction 125 mmHg was applied. The patient was extubated, recovered in PACU. Continue to monitor the wound. Anticipate wound VAC change in the next 2-3 days. Possible need for repeat incision, drainage and debridement. ISAIAS Barillas/ , 09:07 PM , 09:42 PM
[2018-04-30] MEDS ORDERED: Pharmacy Ordered Lab Info OTHER ONE (00:45)
[2018-04-30] MEDS: Morphine Inj 4 MG/ML Vial IV.PUSH PRN ×2 (01:46→07:09)
[2018-04-30] MEDS: Piperacil/Tazo 3.375 GM Premix 50 ML IV.SIG SCH ×4 (03:12→20:39)
[2018-04-30] MEDS: HYDROmorphone PF Inj 2 MG/ML Vial IV.PUSH PRN ×5 (03:13→21:27)
[2018-04-30] MEDS: Senna/Docusate Sodium 8.6/50 MG Tablet PO SCH ×2 (08:25→20:39)
[2018-04-30] MEDS: Sod Chloride 0.9% Inj 1,000 ML IV.CONT SCH ×2 (08:38→17:45)
--- NOTE | 2018-04-30 10:38 | P.PN ---
Subjective Interval history: Follow-up for left foot infection, sepsis. Patient is currently doing well. No fever or chills. She is eating breakfast comfortably. However she complains of significant pain on her left leg. She also complains of anxiety. Physical Exam Vital signs: Vital Signs 04/29/18 12:00 04/29/18 16:00 04/29/18 20:00 Temperature 98.5 F 98.3 F 98.3 F Pulse Rate 67 60 73 Respiratory Rate 16 17 19 Blood Pressure 162/92 H 150/77 H 121/87 Pulse Oximetry 99 98 97 04/29/18 21:00 04/29/18 21:30 04/30/18 00:00 Temperature 98.7 F 98.1 F 98.6 F Pulse Rate 73 74 80 Respiratory Rate 16 26 H 17 Blood Pressure 155/94 H 139/89 103/65 Pulse Oximetry 100 98 97 04/30/18 04:00 04/30/18 08:00 04/30/18 09:17 Temperature 99.9 F H 98.5 F Pulse Rate 79 76 77 Respiratory Rate 18 20 Blood Pressure 136/74 131/81 Pulse Oximetry 93 L 98 Intake & Output 04/29/18 04/30/18 04/30/18 18:59 06:59 18:59 Intake Total 1875.0 / 1875.0 2200 / 2200 1000 / 1000 Output Total 5 / 5 Balance 1875.0 / 1875.0 2195 / 2195 1000 / 1000 Weight 93.1 kg Intake: IV 1875.0 / 1875.0 1100 / 1100 1000 / 1000 NS Inj 1,000 ML @ 100 mls/hr IV 1000 / 1000 1000 / 1000 1000 / 1000 .CONT .Q10H [facility] Rx#:[id number] Zosyn 3.375 GM Premix 50 ML @ 100 / 100 100 / 100 100 mls/hr IV.SIG Q6H [facility] Rx#: [id number] Vancomycin Inj 1,250 MG In NS 775.0 / 775.0 Inj 250 ML @ 250 mls/hr IV.SIG Q12H [facility] Rx#:[id number] Oral 0 / 0 300 / 300 Anesthesia Amount 800 / 800 Output: Estimated Blood Loss 5 / 5 Other: Mode Setting Left Ankle Continuous Continuous Continuous # Voids 11 1 Date of Last Bowel Movement 04/29/18 # Bowel Movements 0 Narrative: GENERAL: Well-nourished, well-developed middle aged female patient in [facility]. SKIN: Warm and dry. No rash. HEENT: Normocephalic. Atraumatic. Pupils equal and round. Mucous membranes pink and moist. CARDIOVASCULAR: Regular rate and rhythm. No murmur appreciated. RESPIRATORY: No accessory muscle use. Clear to auscultation. Breath sounds equal bilaterally. GASTROINTESTINAL: Abdomen soft, non-tender, nondistended. Normoactive bowel sounds x4. MUSCULOSKELETAL: No obvious deformities. Left lateral ankle with wound vac in place, surrounding erythema/edema that extends up to the mid calf. NEUROLOGICAL: Awake and alert. No obvious cranial nerve deficits. Motor grossly within normal limits. Moving all extremities spontaneously. Normal speech. Results - Labs CBC & Chem 7: 04/29/18 06:51 04/29/18 06:51 Microbiology 04/26/18 21:05 Blood - Peripheral Aerobic Blood Culture - Preliminary No growth in 3 days 04/26/18 21:05 Blood - Peripheral Anaerobic Blood Culture - Preliminary No growth in 3 days 04/26/18 21:12 Blood - Peripheral Aerobic Blood Culture - Preliminary No growth in 3 days 04/26/18 21:12 Blood - Peripheral Anaerobic Blood Culture - Preliminary No growth in 3 days 04/27/18 02:35 Wound - Ankle Gram Stain - Final 04/27/18 02:35 Wound - Ankle Wound Culture - Final Klebsiella pneumoniae 04/27/18 02:30 Wound - Ankle Gram Stain - Final 04/27/18 02:30 Wound - Ankle Wound Culture - Final Klebsiella pneumoniae - Procedures 04/26/18 - Dr. Conteh - Left ankle incision drainage debridement with application of wound vac Assessment and Plan - Assessment (1) Sepsis Code(s): A41.9 - Sepsis, unspecified organism Status: Acute (2) Foot infection Code(s): L08.9 - Local infection of the skin and subcutaneous tissue, unspecified Status: Acute (3) IVDU (intravenous drug user) Code(s): F19.90 - Other psychoactive substance use, unspecified, uncomplicated Status: Acute (4) Hypokalemia Code(s): E87.6 - Hypokalemia Status: Acute - Plan 43-year-old female with a PMH of IVDU presents to ER with complaints of left foot swelling and tenderness x1 wk after injecting IV drugs into left foot. Seen in ER on 7/12/18 for similar symptoms, d/c'd w/ Bactrim/Keflex, non- compliant w/ antibiotics. Sepsis - Present on admission (Temp 99, HR 103, WBC 18, Source-Left foot infection. Lactic acid 1.8 ) Left Foot Infection: after IVDU. +leukocytosis WBC 18K, tachycardia HR 103, temp 99.8. -X-ray reviewed, shows infection from gas producing organism -Podiatry consulted -04/26 S/p Left ankle I&D with application of wound vac by Dr. Conteh. Repeat I&D 04/29/2018. -Continue antibiotics with IV Zosyn. Wound cx growing Klebsiella pneumoniae -ID is following. -Change pain management to: Acetaminophen, Percocet as needed. Hydromorphone 1 mg IV every 4 hours for breakthrough. IVDU: ongoing -Counseled on cessation -Ativan PRN for withdrawal. DVT Prophylaxis: Mechanical contraindication due to wound. Discharge plan: Once cleared by ID and Podiatry, patient can likely be discharged. Will likely need wound vac.
[2018-04-30] MEDS: QUEtiapine 25 MG Tablet PO SCH ×2 (11:23→20:39)
[2018-04-30] MEDS: clonazePAM 0.5 MG Tablet PO PRN ×2 (13:33→21:29)
[2018-05-01] MEDS: HYDROmorphone PF Inj 2 MG/ML Vial IV.PUSH PRN ×6 (01:56→22:54)
[2018-05-01] MEDS: Piperacil/Tazo 3.375 GM Premix 50 ML IV.SIG SCH ×4 (02:24→23:31)
[2018-05-01] MEDS: Sod Chloride 0.9% Inj 1,000 ML IV.CONT SCH ×2 (05:04→13:35)
[2018-05-01] MEDS: clonazePAM 0.5 MG Tablet PO PRN (06:27)
[2018-05-01] MEDS: Senna/Docusate Sodium 8.6/50 MG Tablet PO SCH (09:14)
[2018-05-01] MEDS: QUEtiapine 25 MG Tablet PO SCH ×2 (09:17→20:34)
[2018-05-01] MEDS: LORazepam 1 MG Tablet PO PRN ×3 (09:31→22:55)
--- NOTE | 2018-05-01 10:05 | P.PN ---
Subjective Interval history: Follow-up for left foot infection, sepsis. Patient reports significant pain in her left lower extremities. No fever or chills. She feels more anxious now that she is not getting IV Ativan. Physical Exam Vital signs: Vital Signs 04/30/18 12:00 04/30/18 16:00 04/30/18 20:00 Temperature 98.7 F 98.1 F 98.1 F Pulse Rate 62 96 H 73 Respiratory Rate 20 20 18 Blood Pressure 143/83 H 132/76 129/76 Pulse Oximetry 95 96 99 04/30/18 20:07 04/30/18 23:54 05/01/18 00:00 Temperature 98 F Pulse Rate 69 70 69 Respiratory Rate 18 Blood Pressure 159/79 H Pulse Oximetry 98 05/01/18 04:00 05/01/18 08:00 Temperature 97.9 F 97.4 F L Pulse Rate 58 L 60 Respiratory Rate 18 12 Blood Pressure 128/69 124/73 Pulse Oximetry 98 97 Intake & Output 04/30/18 05/01/18 05/01/18 18:59 06:59 18:59 Intake Total 2910 / 2910 1100 / 1100 Balance 2910 / 2910 1100 / 1100 Weight 93.1 kg Intake: IV 2100 / 2100 1100 / 1100 NS Inj 1,000 ML @ 100 mls/hr IV 2000 / 2000 1000 / 1000 .CONT .Q10H [facility] Rx#:[id number] Zosyn 3.375 GM Premix 50 ML @ 100 / 100 100 / 100 100 mls/hr IV.SIG Q6H [facility] Rx#: [id number] Oral 810 / 810 Other: Mode Setting Left Ankle Continuous Continuous Continuous # Voids 5 2 Date of Last Bowel Movement 04/30/18 04/30/18 # Bowel Movements 1 Narrative: GENERAL: Well-nourished, well-developed middle aged female patient in [facility]. SKIN: Warm and dry. No rash. HEENT: Normocephalic. Atraumatic. Pupils equal and round. Mucous membranes pink and moist. CARDIOVASCULAR: Regular rate and rhythm. No murmur appreciated. RESPIRATORY: No accessory muscle use. Clear to auscultation. Breath sounds equal bilaterally. GASTROINTESTINAL: Abdomen soft, non-tender, nondistended. Normoactive bowel sounds x4. MUSCULOSKELETAL: No obvious deformities. Left lateral ankle with wound vac in place, surrounding erythema/edema that extends up to the mid calf. NEUROLOGICAL: Awake and alert. No obvious cranial nerve deficits. Motor grossly within normal limits. Moving all extremities spontaneously. Normal speech. Results - Labs CBC & Chem 7: 04/29/18 06:51 04/29/18 06:51 Microbiology 04/26/18 21:05 Blood - Peripheral Aerobic Blood Culture - Preliminary No growth in 4 days 04/26/18 21:05 Blood - Peripheral Anaerobic Blood Culture - Preliminary No growth in 4 days 04/26/18 21:12 Blood - Peripheral Aerobic Blood Culture - Preliminary No growth in 4 days 04/26/18 21:12 Blood - Peripheral Anaerobic Blood Culture - Preliminary No growth in 4 days - Procedures 04/26/18 - Dr. Conteh - Left ankle incision drainage debridement with application of wound vac Assessment and Plan - Assessment (1) Sepsis Code(s): A41.9 - Sepsis, unspecified organism Status: Acute (2) Foot infection Code(s): L08.9 - Local infection of the skin and subcutaneous tissue, unspecified Status: Acute (3) IVDU (intravenous drug user) Code(s): F19.90 - Other psychoactive substance use, unspecified, uncomplicated Status: Acute (4) Hypokalemia Code(s): E87.6 - Hypokalemia Status: Acute - Plan 43-year-old female with a PMH of IVDU presents to ER with complaints of left foot swelling and tenderness x1 wk after injecting IV drugs into left foot. Seen in ER on 04/23/18 for similar symptoms, d/c'd w/ Bactrim/Keflex, non- compliant w/ antibiotics. Sepsis - Present on admission (Temp 99, HR 103, WBC 18, Source-Left foot infection. Lactic acid 1.8 ) Left Foot Infection: after IVDU. +leukocytosis WBC 18K, tachycardia HR 103, temp 99.8. -X-ray reviewed, shows infection from gas producing organism -Podiatry consulted -04/26 S/p Left ankle I&D with application of wound vac by Dr. Conteh. Repeat I&D 04/29/2018. -Continue antibiotics with IV Zosyn. Wound cx growing Klebsiella pneumoniae -ID is following. Abx can possibly be switched to PO Levaquin. -Change pain management to: Acetaminophen, Percocet as needed. Hydromorphone 1 mg IV every 4 hours for breakthrough. IVDU: ongoing -Counseled on cessation -Ativan PRN for withdrawal. Anxiety -DC clonazepam. Start lorazepam 1 mg PO every 6 hours as needed. DVT Prophylaxis: Mechanical contraindication due to wound. Discharge plan: Once cleared by ID and Podiatry, patient can likely be discharged. Will likely need wound vac.
--- NOTE | 2018-05-01 18:18 | P.PNPOD ---
Subjective Interval history: Patient seen bedside. Admits to IV drug use 2 weeks prior to abscess/infection formation. Denies any nausea vomiting fevers and chills right now. Is resting comfortably. Physical Exam Vital signs: Vital Signs 04/30/18 20:00 04/30/18 20:07 04/30/18 23:54 Temperature 98.1 F Pulse Rate 73 69 70 Respiratory Rate 18 Blood Pressure 129/76 Pulse Oximetry 99 05/01/18 00:00 05/01/18 04:00 05/01/18 08:00 Temperature 98 F 97.9 F 97.4 F L Pulse Rate 69 58 L 60 Respiratory Rate 18 18 12 Blood Pressure 159/79 H 128/69 124/73 Pulse Oximetry 98 98 97 05/01/18 12:00 05/01/18 16:00 Temperature 98.2 F 98.0 F Pulse Rate 57 L 56 L Respiratory Rate 16 12 Blood Pressure 133/69 145/83 H Pulse Oximetry 98 99 Intake & Output 04/30/18 05/01/18 05/01/18 18:59 06:59 18:59 Intake Total 2910 / 2910 1100 / 1100 1050 / 1050 Balance 2910 / 2910 1100 / 1100 1050 / 1050 Weight 93.1 kg Intake: IV 2100 / 2100 1100 / 1100 1050 / 1050 NS Inj 1,000 ML @ 100 mls/hr IV 2000 / 2000 1000 / 1000 1000 / 1000 .CONT .Q10H [facility] Rx#:[id number] Zosyn 3.375 GM Premix 50 ML @ 100 / 100 100 / 100 50 / 50 100 mls/hr IV.SIG Q6H [facility] Rx#: [id number] Oral 810 / 810 Other: Mode Setting Left Ankle Continuous Continuous Continuous # Voids 5 2 5 Date of Last Bowel Movement 04/30/18 05/01/18 # Bowel Movements 1 1 Narrative: Wound VAC functioning and intact to left foot set at 125 mm per mercury, upon wound VAC removal there is a left lateral foot/ankle wound with granular base noted. Rolled epithelialized borders with resolving and improving erythema and edema. No purulent drainage noted. No exposed tendon or bone noted. Medications and Allergies Active Medications: Active Medications Acetaminophen (Tylenol) 650 mg PO Q4H PRN PRN Reason: Fever, headache, pain 1-4 Al Hydroxide/Mg Hydroxide (Milk Of Magnesia Liq) 30 ml PO Q12H PRN PRN Reason: Mild Constipation Bisacodyl (Dulcolax Supp) 10 mg RECTAL DAILY PRN PRN Reason: SEVERE CONSITIPATION Chlorhexidine Gluconate (Chlorhexidine 2% Cloth) 3 pack TOPICAL FORENSIC CHEMIST [facility] Stop: 05/02/18 06:53 Hydromorphone HCl (Dilaudid Pf Inj) 1 mg IV.PUSH Q4H PRN PRN Reason: BREAKTHROUGH PAIN Last Admin: 05/01/18 14:45 Dose: 1 mg Sodium Chloride (Ns Inj) 1,000 mls @ 100 mls/hr IV.CONT .Q10H [facility] Last Admin: 05/01/18 13:35 Dose: 100 mls/hr Piperacillin/Tazobactam/Dextrose (Zosyn 3.375 Gm Premix) 50 mls @ 100 mls/hr IV.SIG Q6H [facility] Last Admin: 05/01/18 14:46 Dose: 100 mls/hr Lactated Ringer's (Lr 1000 Ml Inj) 1,000 mls @ 30 mls/hr IV.SIG .Q24H [facility] Stop: 05/02/18 06:53 Last Admin: 05/01/18 09:14 Dose: Not Given Sodium Chloride (Ns Inj) 500 mls @ 30 mls/hr IV.SIG .Q10H [facility] Stop: 05/02/18 06:53 Lactulose (Lactulose Liq) 30 ml PO DAILY PRN PRN Reason: SEVERE CONSITIPATION Lorazepam (Ativan) 1 mg PO Q6H PRN PRN Reason: ANXIETY AND/OR AGITATION Last Admin: 05/01/18 17:14 Dose: 1 mg Metoclopramide HCl (Reglan Inj) 5 mg IV.PUSH Q6HR PRN; Protocol PRN Reason: NAUSEA OR VOMITING Metoprolol Tartrate (Lopressor) 25 mg PO [facility] Stop: 05/02/18 06:53 Oxycodone HCl (Roxicodone) 10 mg PO Q4H PRN PRN Reason: Pain 5-10 Last Admin: 05/01/18 17:14 Dose: 10 mg Povidone Iodine (Betadine 5% Antisepsis Kit) 1 applicatio EACH NARE [facility]ENSIC CHEMIST [facility] Stop: 05/02/18 06:53 Quetiapine Fumarate (Seroquel) 25 mg PO BID [facility] Last Admin: 05/01/18 09:17 Dose: Not Given Senna/Docusate Sodium (Yue-Colace) 1 tab PO BID [facility] Last Admin: 05/01/18 09:14 Dose: Not Given Sennosides (Senokot) 17.2 mg PO Q12H PRN PRN Reason: Moderate Constipation Temazepam (Restoril) 15 mg PO HS PRN PRN Reason: INSOMNIA Last Admin: 04/28/18 20:27 Dose: 15 mg Allergies Allergy/AdvReac Type Severity Reaction Status Date / Time ibuprofen Allergy Severe Edema Verified 04/26/18 20:38 Home Medications Medication Instructions Recorded Confirmed Type No Known Home Medications 04/26/18 04/26/18 History Results - Labs CBC & Chem 7: 04/29/18 06:51 04/29/18 06:51 Microbiology 04/26/18 21:05 Blood - Peripheral Aerobic Blood Culture - Final No growth in 5 days 04/26/18 21:05 Blood - Peripheral Anaerobic Blood Culture - Final No growth in 5 days 04/26/18 21:12 Blood - Peripheral Aerobic Blood Culture - Final No growth in 5 days 04/26/18 21:12 Blood - Peripheral Anaerobic Blood Culture - Final No growth in 5 days - Procedures 04/26/18 - Dr. Conteh - Left ankle incision drainage debridement with application of wound vac Assessment and Plan - Plan 43-year-old female status post incision and drainage, debridement irrigation of left foot/ankle date of surgery 04/26; repeat debridement irrigation of left foot /ankle 04/29 Patient examined evaluated with all questions answered Wound VAC removed to evaluate wound Healthy granular base noted with improvement in erythema and edema Will reevaluate in 48-72 hours, Dr. [place] to determine whether or not graft placement is necessary Nursing to reapply wound VAC with Adaptic and black foam
[2018-05-01] MEDS: Temazepam 15 MG Capsule PO PRN (22:55)
[2018-05-02] MEDS: Senna/Docusate Sodium 8.6/50 MG Tablet PO SCH ×3 (00:55→22:01)
[2018-05-02] MEDS: Sod Chloride 0.9% Inj 1,000 ML IV.CONT SCH ×4 (01:31→23:58)
[2018-05-02] MEDS: HYDROmorphone PF Inj 2 MG/ML Vial IV.PUSH PRN ×5 (02:43→21:08)
[2018-05-02] MEDS: Piperacil/Tazo 3.375 GM Premix 50 ML IV.SIG SCH ×4 (02:43→21:08)
[2018-05-02] MEDS: LORazepam 1 MG Tablet PO PRN ×2 (05:08→22:00)
[2018-05-02] MEDS: QUEtiapine 25 MG Tablet PO SCH ×2 (09:20→22:00)
[2018-05-02] MEDS: Morphine Sulfate 15 MG SR Tablet PO SCH ×2 (11:09→22:11)
--- NOTE | 2018-05-02 11:24 | P.PN ---
Subjective Interval history: Follow-up for left foot infection, sepsis. She appears comfortable when I walk in the room. She does complain of persistent pain. We discussed about her pain meds - we will give long acting morphine, Gabapentin and work on reducing IV pain meds. She agreed. However, later she argued with RN and only wants IV Dilaudid. No chest pain, SOB, fever, chills. Physical Exam Vital signs: Vital Signs 05/01/18 12:00 05/01/18 16:00 05/01/18 20:00 Temperature 98.2 F 98.0 F 97.8 F Pulse Rate 57 L 56 L 58 L Respiratory Rate 16 12 18 Blood Pressure 133/69 145/83 H 132/83 Pulse Oximetry 98 99 98 05/02/18 00:00 05/02/18 04:00 05/02/18 08:00 Temperature 98.2 F 98 F 98.1 F Pulse Rate 80 56 L 51 L Respiratory Rate 18 18 14 Blood Pressure 111/63 124/60 117/72 Pulse Oximetry 97 98 96 05/02/18 11:06 Temperature Pulse Rate Respiratory Rate 8 L Blood Pressure Pulse Oximetry Intake & Output 05/01/18 05/02/18 05/02/18 18:59 06:59 18:59 Intake Total 1100 / 1100 1100 / 1100 50 / 50 Balance 1100 / 1100 1100 / 1100 50 / 50 Weight 93.1 kg Intake: IV 1100 / 1100 1100 / 1100 50 / 50 NS Inj 1,000 ML @ 100 mls/hr IV 1000 / 1000 1000 / 1000 .CONT .Q10H [facility] Rx#:[id number] Zosyn 3.375 GM Premix 50 ML @ 100 / 100 100 / 100 50 / 50 100 mls/hr IV.SIG Q6H [facility] Rx#: [id number] Other: Mode Setting Left Ankle Continuous Continuous # Voids 5 4 Date of Last Bowel Movement 05/01/18 05/01/18 # Bowel Movements 1 Results - Labs CBC & Chem 7: 04/29/18 06:51 04/29/18 06:51 Microbiology 04/26/18 21:05 Blood - Peripheral Aerobic Blood Culture - Final No growth in 5 days 04/26/18 21:05 Blood - Peripheral Anaerobic Blood Culture - Final No growth in 5 days 04/26/18 21:12 Blood - Peripheral Aerobic Blood Culture - Final No growth in 5 days 04/26/18 21:12 Blood - Peripheral Anaerobic Blood Culture - Final No growth in 5 days - Procedures 04/26/18 - Dr. Conteh - Left ankle incision drainage debridement with application of wound vac Assessment and Plan - Assessment (1) Sepsis Code(s): A41.9 - Sepsis, unspecified organism Status: Acute (2) Foot infection Code(s): L08.9 - Local infection of the skin and subcutaneous tissue, unspecified Status: Acute (3) IVDU (intravenous drug user) Code(s): F19.90 - Other psychoactive substance use, unspecified, uncomplicated Status: Acute (4) Hypokalemia Code(s): E87.6 - Hypokalemia Status: Acute - Plan 43-year-old female with a PMH of IVDU presents to ER with complaints of left foot swelling and tenderness x1 wk after injecting IV drugs into left foot. Seen in ER on 04/23/18 for similar symptoms, d/c'd w/ Bactrim/Keflex, non- compliant w/ antibiotics. Sepsis - Present on admission (Temp 99, HR 103, WBC 18, Source-Left foot infection. Lactic acid 1.8 ) Left Foot Infection: after IVDU. +leukocytosis WBC 18K, tachycardia HR 103, temp 99.8. -X-ray reviewed, shows infection from gas producing organism -Podiatry consulted -04/26 S/p Left ankle I&D with application of wound vac by Dr. Conteh. Repeat I&D 04/29/2018. -Continue antibiotics with IV Zosyn. Wound cx growing Klebsiella pneumoniae -ID is following. Abx can possibly be switched to PO Levaquin. -Long acting morphine 15mg Q12, Oxycodone Q4hrs PRN and Dilaudid IV for breakthrough. Will titrate down pain meds. IVDU: ongoing -Counseled on cessation -Ativan PRN for withdrawal. Anxiety - Lorazepam 1 mg PO every 6 hours as needed. DVT Prophylaxis: Mechanical contraindication due to wound. Discharge plan: Podiatry to evaluate patient in 1-2 days. Possible discharge in the next 2-3 days.
[2018-05-02] MEDS: Gabapentin 400 MG Capsule PO SCH ×2 (14:12→18:21)
[2018-05-02] MEDS ORDERED: Fluconazole 100 MG Tablet PO ONE (17:57)
[2018-05-03] MEDS: Temazepam 15 MG Capsule PO PRN (00:14)
[2018-05-03] MEDS: HYDROmorphone PF Inj 2 MG/ML Vial IV.PUSH PRN ×5 (01:24→21:08)
[2018-05-03] MEDS: LORazepam 1 MG Tablet PO PRN ×2 (04:17→21:09)
[2018-05-03] MEDS: Piperacil/Tazo 3.375 GM Premix 50 ML IV.SIG SCH ×4 (04:22→20:02)
[2018-05-03] MEDS: Sod Chloride 0.9% Inj 1,000 ML IV.CONT SCH ×2 (05:32→17:10)
--- NOTE | 2018-05-03 08:22 | P.PN ---
Subjective Interval history: Follow-up for left foot infection, sepsis. Patient is currently doing well. No fever or chills. She complains of vaginal itching. Yesterday she received 1 dose of fluconazole 150 mg for vaginal candidiasis. Physical Exam Vital signs: Vital Signs 05/02/18 11:06 05/02/18 12:00 05/02/18 16:00 Temperature 98.7 F 98.4 F Pulse Rate 67 74 Respiratory Rate 8 L 16 16 Blood Pressure 125/76 152/95 H Pulse Oximetry 97 99 05/02/18 20:00 05/03/18 00:00 05/03/18 04:00 Temperature 98.4 F 97.5 F L 98.2 F Pulse Rate 63 65 65 Respiratory Rate 16 16 16 Blood Pressure 129/76 121/68 110/62 Pulse Oximetry 96 95 65 L Intake & Output 05/02/18 05/03/18 05/03/18 18:59 06:59 18:59 Intake Total 1100 / 1100 100 / 100 Balance 1100 / 1100 100 / 100 Intake: IV 1100 / 1100 100 / 100 NS Inj 1,000 ML @ 100 mls/hr IV 1000 / 1000 .CONT .Q10H [facility] Rx#:[id number] Zosyn 3.375 GM Premix 50 ML @ 100 / 100 100 / 100 100 mls/hr IV.SIG Q6H [facility] Rx#: [id number] Other: Mode Setting Left Ankle Continuous Continuous # Voids 4 1 Date of Last Bowel Movement 05/01/18 Narrative: GENERAL: Well-nourished, well-developed middle aged female patient in [facility]. SKIN: Warm and dry. No rash. HEENT: Normocephalic. Atraumatic. Pupils equal and round. Mucous membranes pink and moist. CARDIOVASCULAR: Regular rate and rhythm. No murmur appreciated. RESPIRATORY: No accessory muscle use. Clear to auscultation. Breath sounds equal bilaterally. GASTROINTESTINAL: Abdomen soft, non-tender, nondistended. Normoactive bowel sounds x4. MUSCULOSKELETAL: No obvious deformities. Left lateral ankle with wound vac in place. NEUROLOGICAL: Awake and alert. No obvious cranial nerve deficits. Motor grossly within normal limits. Moving all extremities spontaneously. Normal speech. Results - Labs CBC & Chem 7: 04/29/18 06:51 04/29/18 06:51 - Procedures 04/26/18 - Dr. Conteh - Left ankle incision drainage debridement with application of wound vac Assessment and Plan - Assessment (1) Sepsis Code(s): A41.9 - Sepsis, unspecified organism Status: Acute (2) Foot infection Code(s): L08.9 - Local infection of the skin and subcutaneous tissue, unspecified Status: Acute (3) IVDU (intravenous drug user) Code(s): F19.90 - Other psychoactive substance use, unspecified, uncomplicated Status: Acute (4) Hypokalemia Code(s): E87.6 - Hypokalemia Status: Acute - Plan 43-year-old female with a PMH of IVDU presents to ER with complaints of left foot swelling and tenderness x1 wk after injecting IV drugs into left foot. Seen in ER on 04/23/18 for similar symptoms, d/c'd w/ Bactrim/Keflex, non- compliant w/ antibiotics. Sepsis - Present on admission (Temp 99, HR 103, WBC 18, Source-Left foot infection. Lactic acid 1.8 ) Left Foot Infection: after IVDU. +leukocytosis WBC 18K, tachycardia HR 103, temp 99.8. -X-ray reviewed, shows infection from gas producing organism -Podiatry consulted -04/26 S/p Left ankle I&D with application of wound vac by Dr. Conteh. Repeat I&D 04/29/2018. -Continue antibiotics with IV Zosyn. Wound cx growing Klebsiella pneumoniae -ID is following. Abx can possibly be switched to PO Levaquin. -Long acting morphine 15mg Q12, Oxycodone Q4hrs PRN and Dilaudid IV for breakthrough. Will titrate down pain meds. -Likely evaluation by Podiatry and ID on 05/04/2018. Possible discharge in 1- 2 days. IVDU: ongoing -Counseled on cessation -Ativan PRN for withdrawal. Anxiety - Lorazepam 1 mg PO every 6 hours as needed. Vaginal candidiasis -Received fluconazole 150 mg on 05/02/2018. -We will start topical steroid Hemorrhoids -we will provide topical treatments. DVT Prophylaxis: Mechanical contraindication due to wound. Discharge plan: Possible discharge in the next 1-2 days.
[2018-05-03] MEDS: QUEtiapine 25 MG Tablet PO SCH ×2 (08:35→21:09)
[2018-05-03] MEDS: Gabapentin 400 MG Capsule PO SCH ×3 (08:35→17:11)
[2018-05-03] MEDS: Morphine Sulfate 15 MG SR Tablet PO SCH ×2 (08:36→20:03)
[2018-05-03] MEDS: Senna/Docusate Sodium 8.6/50 MG Tablet PO SCH (08:36)
[2018-05-04] MEDS: Senna/Docusate Sodium 8.6/50 MG Tablet PO SCH ×3 (00:32→20:21)
[2018-05-04] MEDS: HYDROmorphone PF Inj 2 MG/ML Vial IV.PUSH PRN ×6 (00:58→21:23)
[2018-05-04] MEDS: Piperacil/Tazo 3.375 GM Premix 50 ML IV.SIG SCH ×4 (02:54→21:23)
[2018-05-04] MEDS: LORazepam 1 MG Tablet PO PRN ×2 (02:54→21:24)
[2018-05-04] MEDS: Sod Chloride 0.9% Inj 1,000 ML IV.CONT SCH ×2 (05:02→13:49)
[2018-05-04] MEDS: Gabapentin 400 MG Capsule PO SCH ×3 (08:12→17:16)
[2018-05-04] MEDS: Morphine Sulfate 15 MG SR Tablet PO SCH ×2 (08:13→20:12)
[2018-05-04] MEDS: QUEtiapine 25 MG Tablet PO SCH ×2 (08:13→20:13)
--- NOTE | 2018-05-04 12:11 | P.PNIM ---
Subjective Interval history: Patient's primary complaint is foot pain. She also reports inflammation of the hemorrhoid and a vaginal yeast infection. No other complaints. Physical Exam Vital signs: Vital Signs 05/03/18 12:44 05/03/18 16:00 05/03/18 16:18 Temperature 98.1 F Pulse Rate 72 Respiratory Rate 14 18 14 Blood Pressure 121/71 Pulse Oximetry 96 05/03/18 20:00 05/04/18 00:00 05/04/18 04:00 Temperature 98 F 98.4 F 98.2 F Pulse Rate 64 69 66 Respiratory Rate 16 16 16 Blood Pressure 133/78 120/62 111/58 L Pulse Oximetry 98 96 97 05/04/18 08:00 05/04/18 09:26 05/04/18 10:22 Temperature 98.1 F 97.8 F Pulse Rate 62 70 67 Respiratory Rate 18 16 Blood Pressure 111/70 114/65 Pulse Oximetry 97 97 Intake & Output 05/03/18 05/04/18 05/04/18 18:59 06:59 18:59 Intake Total 1300 / 1300 3300 / 3300 Output Total 6 / 6 300 / 300 Balance 1300 / 1300 3294 / 3294 -300 / -300 Intake: IV 100 / 100 100 / 100 Zosyn 3.375 GM Premix 50 ML @ 100 / 100 100 / 100 100 mls/hr IV.SIG Q6H [facility] Rx#: [id number] Oral 1200 / 1200 1200 / 1200 Anesthesia Amount 800 / 800 Other 1200 / 1200 Output: Urine 1 / 1 300 / 300 Estimated Blood Loss 5 / 5 Other: Mode Setting Left Ankle Continuous Continuous Continuous # Voids 1,300 1,300 Date of Last Bowel Movement 05/02/18 05/02/18 # Bowel Movements 1 1 Narrative: GENERAL: NAD, A&Ox3 HEAD: Normocephalic. NECK: Supple, trachea midline. No lymphadenopathy. EYES: No scleral icterus. No injection or drainage. CARDIOVASCULAR: Regular rate and rhythm without murmurs, gallops, or rubs. RESPIRATORY: Breath sounds equal bilaterally. No accessory muscle use. GASTROINTESTINAL: Abdomen soft, non-tender, nondistended. MUSCULOSKELETAL: No cyanosis, or edema. Lateral wound VAC on left foot. SKIN: Warm and dry. NEURO: No focal neurological deficits. Results - Labs CBC & Chem 7: 04/29/18 06:51 04/29/18 06:51 - Procedures 04/26/18 - Dr. Conteh - Left ankle incision drainage debridement with application of wound vac Assessment and Plan - Assessment (1) Sepsis Code(s): A41.9 - Sepsis, unspecified organism Status: Acute (2) Foot infection Code(s): L08.9 - Local infection of the skin and subcutaneous tissue, unspecified Status: Acute (3) IVDU (intravenous drug user) Code(s): F19.90 - Other psychoactive substance use, unspecified, uncomplicated Status: Acute (4) Hypokalemia Code(s): E87.6 - Hypokalemia Status: Acute - Plan 43-year-old female admitted secondary to left foot infection related to IV drug abuse, with outpatient treatment failure. Sepsis Resolved Left foot abscess/cellulitis Status post I&D Podiatry following Infectious disease following Continue antibiotics Continue monitoring wound status Transient steroids will be provided for degree of inflammation (patient allergic to NSAIDs) IV drug abuse As needed Ativan for withdrawal Monitor clinically General anxiety disorder Continue as needed lorazepam Hemorrhoids Proctofoam Vaginal candidiasis Patient received oral fluconazole Continue Monistat for 7 days topically
[2018-05-04] MEDS ORDERED: MethylPREDNISolone Sod Succinate Inj 40 MG/ML Vial IV.PUSH ONE (13:30)
[2018-05-04] MEDS ORDERED: Hydrocortisone/Pramoxine Foam 10 GM Can RECTAL ONE (14:00)
--- NOTE | 2018-05-04 17:41 | P.PNPOD ---
Subjective Interval history: s/p left foot gangrenous abscess debridement 04/27 and 04/29. Pt states she has severe pain but wants to be discharges as soon as possible. She states that she wants to get into a rehab program once discharged. She denies any n/v/f/h but states she has occasional chills and sweating. Physical Exam Vital signs: Vital Signs 05/03/18 20:00 05/04/18 00:00 05/04/18 04:00 Temperature 98 F 98.4 F 98.2 F Pulse Rate 64 69 66 Respiratory Rate 16 16 16 Blood Pressure 133/78 120/62 111/58 L Pulse Oximetry 98 96 97 05/04/18 08:00 05/04/18 09:26 05/04/18 10:22 Temperature 98.1 F 97.8 F Pulse Rate 62 70 67 Respiratory Rate 18 16 Blood Pressure 111/70 114/65 Pulse Oximetry 97 97 05/04/18 12:50 05/04/18 14:27 05/04/18 16:33 Temperature 97.8 F 98 F Pulse Rate 63 61 67 Respiratory Rate 16 16 Blood Pressure 103/58 L 118/70 Pulse Oximetry 97 98 Intake & Output 05/03/18 05/04/18 05/04/18 18:59 06:59 18:59 Intake Total 1300 / 1300 3300 / 3300 1010 / 1010 Output Total / 1300 / 1300 Balance 1300 / 1300 3294 / 3294 -290 / -290 Intake: IV 100 / 100 100 / 100 50 / 50 Zosyn 3.375 GM Premix 50 ML @ 100 / 100 100 / 100 50 / 50 100 mls/hr IV.SIG Q6H REPLACED BY [facility] Rx#: [id number] Oral 1200 / 1200 1200 / 1200 960 / 960 Anesthesia Amount 800 / 800 Other 1200 / 1200 Output: Urine / 1300 / 1300 Estimated Blood Loss 5 / 5 Other: Mode Setting Left Ankle Continuous Continuous Continuous # Voids 1,300 1,300 1 Date of Last Bowel Movement 05/02/18 05/02/18 # Bowel Movements 1 1 Narrative: Left lateal foot ulcer full thickness 3.0cm x 2.5cm x 0.25 cm, surrounding mild edema but no erythema. No malodor. No deep probing. Medications and Allergies Active Medications: Active Medications Acetaminophen (Tylenol) 650 mg PO Q4H PRN PRN Reason: Fever, headache, pain 1-4 Al Hydroxide/Mg Hydroxide (Milk Of Magnesia Liq) 30 ml PO Q12H PRN PRN Reason: Mild Constipation Bisacodyl (Dulcolax Supp) 10 mg RECTAL DAILY PRN PRN Reason: SEVERE CONSITIPATION Gabapentin (Neurontin) 400 mg PO TID REPLACED BY [facility] Last Admin: 05/04/18 17:16 Dose: 400 mg Hydromorphone HCl (Dilaudid Pf Inj) 1 mg IV.PUSH Q4H PRN PRN Reason: BREAKTHROUGH PAIN Last Admin: 05/04/18 17:16 Dose: 1 mg Sodium Chloride (Ns Inj) 1,000 mls @ 100 mls/hr IV.CONT .Q10H REPLACED BY [facility] Last Admin: 05/04/18 13:49 Dose: Not Given Piperacillin/Tazobactam/Dextrose (Zosyn 3.375 Gm Premix) 50 mls @ 100 mls/hr IV.SIG Q6H REPLACED BY [facility] Last Admin: 05/04/18 16:07 Dose: 100 mls/hr Lactulose (Lactulose Liq) 30 ml PO DAILY PRN PRN Reason: SEVERE CONSITIPATION Lorazepam (Ativan) 1 mg PO Q6H PRN PRN Reason: ANXIETY AND/OR AGITATION Last Admin: 05/04/18 02:54 Dose: 1 mg Metoclopramide HCl (Reglan Inj) 5 mg IV.PUSH Q6HR PRN; Protocol PRN Reason: NAUSEA OR VOMITING Miconazole Nitrate (Monistat 7 Vag Cream) 1 appful VAGINAL HS REPLACED BY [facility] Stop: 05/10/18 21:01 Miscellaneous (Pill Splitter) 1 each OTHER UNSCH PRN PRN Reason: PILL SPLITTING Morphine Sulfate (Oramorph Sr) 15 mg PO Q12HR REPLACED BY [facility] Last Admin: 05/04/18 08:13 Dose: 15 mg Oxycodone HCl (Roxicodone) 10 mg PO Q4H PRN PRN Reason: Pain 5-10 Last Admin: 05/04/18 16:08 Dose: 10 mg Prednisone (Deltasone) 20 mg PO DAILY REPLACED BY [facility] Stop: 05/07/18 23:59 Quetiapine Fumarate (Seroquel) 25 mg PO BID REPLACED BY [facility] Last Admin: 05/04/18 08:13 Dose: 25 mg Senna/Docusate Sodium (Yue-Colace) 1 tab PO BID [facility] Last Admin: 05/04/18 08:14 Dose: Not Given Sennosides (Senokot) 17.2 mg PO Q12H PRN PRN Reason: Moderate Constipation Temazepam (Restoril) 15 mg PO HS PRN PRN Reason: INSOMNIA Last Admin: 05/03/18 00:14 Dose: 15 mg Allergies Allergy/AdvReac Type Severity Reaction Status Date / Time ibuprofen Allergy Severe Edema Verified 04/26/18 20:38 Home Medications Medication Instructions Recorded Confirmed Type No Known Home Medications 04/26/18 04/26/18 History Results - Labs CBC & Chem 7: 04/29/18 06:51 04/29/18 06:51 Microbiology 04/27/18 02:35 Wound - Ankle Fungal Smear - Final No fungal elements seen 04/27/18 02:35 Wound - Ankle Fungal Culture - Preliminary No growth in 1 week 04/27/18 02:35 Wound - Ankle Acid Fast Bacilli Smear - Final No acid fast bacilli seen 04/27/18 02:35 Wound - Ankle Mycobacterial Culture - Preliminary No growth in 1 week 04/27/18 02:30 Wound - Ankle Fungal Smear - Final No fungal elements seen 04/27/18 02:30 Wound - Ankle Fungal Culture - Preliminary No growth in 1 week 04/27/18 02:30 Wound - Ankle Acid Fast Bacilli Smear - Final No acid fast bacilli seen 04/27/18 02:30 Wound - Ankle Mycobacterial Culture - Preliminary No growth in 1 week - Procedures 04/26/18 - Dr. Conteh - Left ankle incision drainage debridement with application of wound vac Assessment and Plan - Assessment (1) Foot infection Code(s): L08.9 - Local infection of the skin and subcutaneous tissue, unspecified Status: Acute - Plan - cont wound VAC with M/W/F changes - VAC paperwork for home VAC on chart - will need home VAC, HHC, and short term PO abx at time of d/c - pt requesting help with drug rehab placement at time of d/c - ok to d/c from podiatry standpoint, no further surgical intervention at this time - f/u with 1 week after d/c
[2018-05-05] MEDS: Sod Chloride 0.9% Inj 1,000 ML IV.CONT SCH ×3 (01:16→19:21)
[2018-05-05] MEDS: HYDROmorphone PF Inj 2 MG/ML Vial IV.PUSH PRN ×6 (01:17→22:48)
[2018-05-05] MEDS: Temazepam 15 MG Capsule PO PRN (01:22)
[2018-05-05] MEDS: Piperacil/Tazo 3.375 GM Premix 50 ML IV.SIG SCH ×4 (03:55→22:48)
[2018-05-05] MEDS: LORazepam 1 MG Tablet PO PRN ×2 (06:17→12:03)
[2018-05-05 07:57] LABS: Baso # (Auto) 0.1 th/mm3 (0.0-0.2); Baso % (Auto) 0.5 % (0.0-2.0); Eos % (Auto) 0.4 % (0.0-4.0); Hematocrit 31.6 % (35.0-46.0); Hemoglobin 9.7 gm/dL (11.6-15.3); Mean Corpuscular HGB Conc 30.8 % (32.0-36.0); Mean Corpuscular Hemoglobin 22.4 pg (27.0-34.0); Mean Corpuscular Volume 72.6 fL (80.0-100.0); Mean Platelet Volume 8.6 fL (7.0-11.0); Mono # (Auto) 0.9 th/mm3 (0.0-0.9); Mono % (Auto) 7.8 % (0.0-8.0); Neut # (Auto) 7.8 th/mm3 (1.8-7.7); Neut % (Auto) 66.3 % (16.0-70.0); Platelet Count 482 th/mm3 (150-450); Red Blood Count 4.35 mil/mm3 (4.00-5.30); Red Cell Distribution Width 17.7 % (11.6-17.2); White Blood Count 11.8 th/mm3 (4.0-11.0)
[2018-05-05] MEDS: Morphine Sulfate 15 MG SR Tablet PO SCH ×2 (08:11→20:34)
[2018-05-05] MEDS: QUEtiapine 25 MG Tablet PO SCH (08:11)
[2018-05-05] MEDS: Gabapentin 400 MG Capsule PO SCH ×3 (08:11→17:56)
[2018-05-05] MEDS: predniSONE 20 MG Tablet PO SCH (08:11)
[2018-05-05] MEDS: Senna/Docusate Sodium 8.6/50 MG Tablet PO SCH ×2 (08:12→20:37)
[2018-05-05 08:19] LABS: Albumin 2.8 g/dL (3.4-5.0); Anion Gap 9 meq/L (5-15); Aspartate Aminotransferase 24 U/L (15-37); Blood Urea Nitrogen 11 mg/dL (7-18); Calcium 9.2 mg/dL (8.5-10.1); Chloride 102 meq/L (98-107); Glomerular Filtration Rate 66 mL/min (>89); Glucose,Random 122 mg/dL (74-106); Potassium 4.4 meq/L (3.5-5.1); Sodium 138 meq/L (136-145)
[2018-05-05 08:21] LABS: Alanine Aminotransferase 29 U/L (10-53)
[2018-05-05 08:23] LABS: Alkaline Phosphatase 81 U/L (45-117)
--- NOTE | 2018-05-05 13:35 | P.PNIM ---
Subjective Interval history: Slight improvement in pain with steroids for anti-inflammation. Patient's primary complaint is lack of sleep at this point today. Wound VAC is in place. Arrangements for outpatient wound VAC and nursing care are in process. Patient has concerns that she might lose her previous housing option. She will inform us if this happens. Physical Exam Vital signs: Vital Signs 05/04/18 14:27 05/04/18 16:33 05/04/18 18:35 Temperature 98 F Pulse Rate 61 67 70 Respiratory Rate 16 Blood Pressure 118/70 Pulse Oximetry 98 05/04/18 19:51 05/04/18 20:00 05/04/18 20:42 Temperature 98.7 F Pulse Rate 86 88 Respiratory Rate 18 18 Blood Pressure 134/80 Pulse Oximetry 98 05/04/18 21:53 05/05/18 00:39 05/05/18 00:40 Temperature 97.7 F Pulse Rate 84 80 Respiratory Rate 18 20 Blood Pressure 130/67 Pulse Oximetry 97 05/05/18 03:30 05/05/18 05:37 05/05/18 08:00 Temperature 98 F 98.5 F Pulse Rate 80 79 58 L Respiratory Rate 17 18 Blood Pressure 107/63 108/58 L Pulse Oximetry 97 96 05/05/18 11:38 05/05/18 12:00 Temperature 98.1 F Pulse Rate 60 65 Respiratory Rate 17 Blood Pressure 116/68 Pulse Oximetry 95 Intake & Output 05/04/18 05/05/18 05/05/18 18:59 06:59 18:59 Intake Total 1060 / 1060 2950 / 2950 50 / 50 Output Total 1350 / 1350 Balance -290 / -290 2950 / 2950 50 / 50 Weight 93 kg Intake: IV 100 / 100 100 / 100 50 / 50 Zosyn 3.375 GM Premix 50 ML @ 100 / 100 100 / 100 50 / 50 100 mls/hr IV.SIG Q6H [facility] Rx#: [id number] Oral 960 / 960 2850 / 2850 Output: Urine 1300 / 1300 Wound Vac Amount 50 / 50 Left Ankle 50 / 50 Other: Mode Setting Left Ankle Continuous Continuous Continuous # Voids 1 3 1 Date of Last Bowel Movement 05/04/18 # Bowel Movements 0 Narrative: GENERAL: NAD, A&Ox3 HEAD: Normocephalic. NECK: Supple, trachea midline. No lymphadenopathy. EYES: No scleral icterus. No injection or drainage. CARDIOVASCULAR: Regular rate and rhythm without murmurs, gallops, or rubs. RESPIRATORY: Breath sounds equal bilaterally. No accessory muscle use. GASTROINTESTINAL: Abdomen soft, non-tender, nondistended. MUSCULOSKELETAL: No cyanosis, or edema. Lateral wound VAC on left foot. SKIN: Warm and dry. NEURO: No focal neurological deficits. Results - Labs CBC & Chem 7: 05/05/18 06:30 05/05/18 06:30 Laboratory Results - last 24 hr 05/05/18 05/05/18 06:30 06:30 WBC 11.8 H RBC 4.35 Hgb 9.7 L Hct 31.6 L MCV 72.6 L MCH 22.4 L MCHC 30.8 L RDW 17.7 H Plt Count 482 H MPV 8.6 Neut % (Auto) 66.3 Lymph % (Auto) 25.0 [place] % (Auto) 7.8 Eos % (Auto) 0.4 Baso % (Auto) 0.5 Neut # (Auto) 7.8 H Lymph # (Auto) 3.0 [place] # (Auto) 0.9 Eos # (Auto) 0.0 Baso # (Auto) 0.1 WBC Differential . Differential Comment Auto diff final Sodium 138 Potassium 4.4 Chloride 102 Carbon Dioxide 27.0 Anion Gap 9 BUN 11 Creatinine 0.93 Estimated GFR 66 L Random Glucose 122 H Calcium 9.2 Total Bilirubin 0.1 L AST 24 ALT 29 Alkaline Phosphatase 81 Total Protein 8.0 Albumin 2.8 L Microbiology 04/27/18 02:35 Wound - Ankle Fungal Smear - Final No fungal elements seen 04/27/18 02:35 Wound - Ankle Fungal Culture - Preliminary No growth in 1 week 04/27/18 02:35 Wound - Ankle Acid Fast Bacilli Smear - Final No acid fast bacilli seen 04/27/18 02:35 Wound - Ankle Mycobacterial Culture - Preliminary No growth in 1 week 04/27/18 02:30 Wound - Ankle Fungal Smear - Final No fungal elements seen 04/27/18 02:30 Wound - Ankle Fungal Culture - Preliminary No growth in 1 week 04/27/18 02:30 Wound - Ankle Acid Fast Bacilli Smear - Final No acid fast bacilli seen 04/27/18 02:30 Wound - Ankle Mycobacterial Culture - Preliminary No growth in 1 week - Procedures 04/26/18 - Dr. Conteh - Left ankle incision drainage debridement with application of wound vac Assessment and Plan - Assessment (1) Sepsis Code(s): A41.9 - Sepsis, unspecified organism Status: Acute (2) Foot infection Code(s): L08.9 - Local infection of the skin and subcutaneous tissue, unspecified Status: Acute (3) IVDU (intravenous drug user) Code(s): F19.90 - Other psychoactive substance use, unspecified, uncomplicated Status: Acute (4) Hypokalemia Code(s): E87.6 - Hypokalemia Status: Acute - Plan 43-year-old female admitted secondary to left foot infection related to IV drug abuse, with outpatient treatment failure. Increase Seroquel to baseline dosing of 100 twice daily and 300 nightly. Patient is cleared by podiatry for discharge with wound VAC. Continue arrangements for outpatient wound VAC and nursing care. Sepsis Resolved Left foot abscess/cellulitis Status post I&D Podiatry following Infectious disease following Continue antibiotics Continue monitoring wound status Transient steroids will be provided for degree of inflammation (patient allergic to NSAIDs) IV drug abuse As needed Ativan for withdrawal Monitor clinically General anxiety disorder Continue as needed lorazepam Hemorrhoids Proctofoam Vaginal candidiasis Patient received oral fluconazole Continue Monistat for 7 days topically
[2018-05-05] MEDS: QUEtiapine 100 MG Tablet PO SCH (15:03)
--- NOTE | 2018-05-05 23:35 | P.PNID ---
Subjective Remarks: grew Kleb pneumo maddox S cont to co L foot pain no fever blood clx are negative Antibiotics: zosyn Allergies/Adverse Reactions: Allergies ibuprofen Allergy (Severe, Verified 04/26/18 20:38) Edema pt states she "swells up and it goes to my throat" Objective Vital Signs 05/05/18 00:39 05/05/18 00:40 05/05/18 03:30 Temperature 97.7 F 98 F Pulse Rate 84 80 80 Respiratory Rate 20 17 Blood Pressure 130/67 107/63 Pulse Oximetry 97 97 05/05/18 05:37 05/05/18 08:00 05/05/18 11:38 Temperature 98.5 F Pulse Rate 79 58 L 60 Respiratory Rate 18 Blood Pressure 108/58 L Pulse Oximetry 96 05/05/18 12:00 05/05/18 16:00 Temperature 98.1 F 97.6 F Pulse Rate 65 68 Respiratory Rate 17 18 Blood Pressure 116/68 112/73 Pulse Oximetry 95 96 Intake & Output 05/05/18 05/05/18 05/06/18 06:59 18:59 06:59 Intake Total 2950 / 2950 1100 / 1100 Balance 2950 / 2950 1100 / 1100 Weight 93 kg 78 kg Intake: IV 100 / 100 100 / 100 Zosyn 3.375 GM Premix 50 ML @ 100 / 100 100 / 100 100 mls/hr IV.SIG Q6H [facility] Rx#: [id number] Oral 2850 / 2850 1000 / 1000 Other: Mode Setting Left Ankle Continuous Continuous # Voids 3 6 1 Date of Last Bowel Movement 05/04/18 # Bowel Movements 0 1 1 04/27/18 02:35 Wound - Ankle Fungal Smear - Final No fungal elements seen 04/27/18 02:35 Wound - Ankle Fungal Culture - Preliminary No growth in 1 week 04/27/18 02:35 Wound - Ankle Acid Fast Bacilli Smear - Final No acid fast bacilli seen 04/27/18 02:35 Wound - Ankle Mycobacterial Culture - Preliminary No growth in 1 week 04/27/18 02:30 Wound - Ankle Fungal Smear - Final No fungal elements seen 04/27/18 02:30 Wound - Ankle Fungal Culture - Preliminary No growth in 1 week 04/27/18 02:30 Wound - Ankle Acid Fast Bacilli Smear - Final No acid fast bacilli seen 04/27/18 02:30 Wound - Ankle Mycobacterial Culture - Preliminary No growth in 1 week Lab - Hematology Results 05/05/18 06:30 WBC 11.8 H RBC 4.35 Hgb 9.7 L Hct 31.6 L MCV 72.6 L MCH 22.4 L MCHC 30.8 L RDW 17.7 H Plt Count 482 H MPV 8.6 Neut % (Auto) 66.3 Lymph % (Auto) 25.0 Banner % (Auto) 7.8 Eos % (Auto) 0.4 Baso % (Auto) 0.5 Neut # (Auto) 7.8 H Lymph # (Auto) 3.0 Banner # (Auto) 0.9 Eos # (Auto) 0.0 Baso # (Auto) 0.1 WBC Differential . Differential Comment Auto diff final Lab - Chemistry Results 05/05/18 06:30 Sodium 138 Potassium 4.4 Chloride 102 Carbon Dioxide 27.0 Anion Gap 9 BUN 11 Creatinine 0.93 Estimated GFR 66 L Random Glucose 122 H Calcium 9.2 Total Bilirubin 0.1 L AST 24 ALT 29 Alkaline Phosphatase 81 Total Protein 8.0 Albumin 2.8 L Imaging: ITS Impressions Ankle X-Ray 04/26/18 23:12 CONCLUSION: Extensive soft tissue swelling with air in the soft tissues of the lateral left foot posteriorly characteristic of infection with gas producing organism. Foot X-Ray 04/26/18 23:12 CONCLUSION: Infection of the lateral posterior left foot with gas producing organism. No acute bony abnormality identified on plain film. Physical Exam: GENERAL: NAD SKIN: Warm and dry. no rash HEAD: Normocephalic. EYES: No scleral icterus. No injection or drainage. NECK: Supple, trachea midline. No JVD or lymphadenopathy. CARDIOVASCULAR: Regular rate and rhythm without murmurs, gallops, or rubs. RESPIRATORY: Breath sounds equal bilaterally. No accessory muscle use. GASTROINTESTINAL: Abdomen soft, non-tender, nondistended. MUSCULOSKELETAL: No cyanosis, or edema. L Foot/Toes: (VAC in plalce with serosang d/c) - erythema, redness improved still proinent fullness of the foot BACK: Nontender without obvious deformity. No CVA tenderness. no acute distress Assessment and Plan (1) Foot infection Status: Acute Code(s): L08.9 - Local infection of the skin and subcutaneous tissue, unspecified (2) IVDU (intravenous drug user) Status: Acute Code(s): F19.90 - Other psychoactive substance use, unspecified , uncomplicated - Plan Assessment and Plan (1) Foot infection Status: Acute Code(s): L08.9 - Local infection of the skin and subcutaneous tissue, unspecified (2) IVDU (intravenous drug user) Status: Acute Code(s): F19.90 - Other psychoactive substance use, unspecified , uncomplicated - Plan L foot infection with gas producing organism s/p repeated I+D, VAC placement OK to dc on Augmentin 500 mg PO TID x 7-10 more days Longer treatment if delayed progress gracia Nova
[2018-05-06] MEDS: LORazepam 1 MG Tablet PO PRN (00:21)
[2018-05-06] MEDS: Piperacil/Tazo 3.375 GM Premix 50 ML IV.SIG SCH ×5 (03:00→22:51)
[2018-05-06] MEDS: HYDROmorphone PF Inj 2 MG/ML Vial IV.PUSH PRN ×5 (03:50→22:49)
[2018-05-06] MEDS: Sod Chloride 0.9% Inj 1,000 ML IV.CONT SCH ×2 (07:42→12:40)
[2018-05-06] MEDS: Gabapentin 400 MG Capsule PO SCH ×3 (08:31→18:05)
[2018-05-06] MEDS: Morphine Sulfate 15 MG SR Tablet PO SCH ×2 (08:31→21:32)
[2018-05-06] MEDS: predniSONE 20 MG Tablet PO SCH (08:31)
[2018-05-06] MEDS: QUEtiapine 100 MG Tablet PO SCH ×2 (08:32→15:20)
[2018-05-06] MEDS: Senna/Docusate Sodium 8.6/50 MG Tablet PO SCH ×2 (08:35→21:33)
--- NOTE | 2018-05-06 14:07 | P.PNIM ---
Subjective Interval history: Complaint of Reflux. No other new complaints. Patient's roommate has been evicted, so she currently has no address to return to at discharge. Physical Exam Vital signs: Vital Signs 05/05/18 16:00 05/05/18 20:20 05/06/18 00:00 Temperature 97.6 F 98.2 F Pulse Rate 68 76 83 Respiratory Rate 18 17 Blood Pressure 112/73 117/73 Pulse Oximetry 96 97 05/06/18 00:10 05/06/18 06:00 05/06/18 08:00 Temperature 97 F L 97 F L 97.7 F Pulse Rate 75 63 59 L Respiratory Rate 17 16 12 Blood Pressure 115/80 110/63 110/68 Pulse Oximetry 97 99 97 05/06/18 12:00 Temperature 98.1 F Pulse Rate 66 Respiratory Rate 13 Blood Pressure 122/76 Pulse Oximetry 95 Intake & Output 05/05/18 05/06/18 05/06/18 18:59 06:59 18:59 Intake Total 1100 / 1100 2950 / 2950 100 / 100 Balance 1100 / 1100 2950 / 2950 100 / 100 Weight 78 kg 78 kg Intake: IV 100 / 100 50 / 50 100 / 100 Zosyn 3.375 GM Premix 50 ML @ 100 / 100 50 / 50 100 / 100 100 mls/hr IV.SIG Q6H [facility] Rx#: [id number] Oral 1000 / 1000 2900 / 2900 Other: Mode Setting Left Ankle Continuous Continuous Continuous # Voids 6 8 Date of Last Bowel Movement 05/05/18 05/05/18 # Bowel Movements 1 0 Narrative: GENERAL: NAD, A&Ox3 HEAD: Normocephalic. NECK: Supple, trachea midline. No lymphadenopathy. EYES: No scleral icterus. No injection or drainage. CARDIOVASCULAR: Regular rate and rhythm without murmurs, gallops, or rubs. RESPIRATORY: Breath sounds equal bilaterally. No accessory muscle use. GASTROINTESTINAL: Abdomen soft, non-tender, nondistended. MUSCULOSKELETAL: No cyanosis, or edema. Lateral wound VAC on left foot. SKIN: Warm and dry. NEURO: No focal neurological deficits. Results - Labs CBC & Chem 7: 05/05/18 06:30 05/05/18 06:30 - Procedures 04/26/18 - Dr. Conteh - Left ankle incision drainage debridement with application of wound vac Assessment and Plan - Assessment (1) Sepsis Code(s): A41.9 - Sepsis, unspecified organism Status: Acute (2) Foot infection Code(s): L08.9 - Local infection of the skin and subcutaneous tissue, unspecified Status: Acute (3) IVDU (intravenous drug user) Code(s): F19.90 - Other psychoactive substance use, unspecified, uncomplicated Status: Acute (4) Hypokalemia Code(s): E87.6 - Hypokalemia Status: Acute - Plan 43-year-old female admitted secondary to left foot infection related to IV drug abuse, with outpatient treatment failure. Added protnoix for reflux. Patient is cleared by podiatry for discharge with wound VAC. No option yet for discharge given lack of location to discharge to with wound vac. Sepsis Resolved Left foot abscess/cellulitis Status post I&D Podiatry following Infectious disease following Continue antibiotics Continue monitoring wound status Transient steroids will be provided for degree of inflammation (patient allergic to NSAIDs) IV drug abuse As needed Ativan for withdrawal Monitor clinically General anxiety disorder Continue as needed lorazepam Hemorrhoids Proctofoam Vaginal candidiasis Patient received oral fluconazole Continue Monistat for 7 days topically
[2018-05-07] MEDS: HYDROmorphone PF Inj 2 MG/ML Vial IV.PUSH PRN ×5 (02:55→22:13)
[2018-05-07] MEDS: LORazepam 1 MG Tablet PO PRN ×2 (03:03→22:21)
[2018-05-07] MEDS: Piperacil/Tazo 3.375 GM Premix 50 ML IV.SIG SCH ×4 (04:52→20:13)
[2018-05-07] MEDS: Morphine Sulfate 15 MG SR Tablet PO SCH ×2 (09:07→20:14)
[2018-05-07] MEDS: predniSONE 20 MG Tablet PO SCH (09:07)
[2018-05-07] MEDS: Senna/Docusate Sodium 8.6/50 MG Tablet PO SCH ×2 (09:07→20:22)
[2018-05-07] MEDS: Gabapentin 400 MG Capsule PO SCH ×3 (09:08→17:08)
[2018-05-07] MEDS: Sod Chloride 0.9% Inj 1,000 ML IV.CONT SCH ×3 (09:11→18:31)
[2018-05-07] MEDS: QUEtiapine 100 MG Tablet PO SCH ×2 (09:14→14:17)
--- NOTE | 2018-05-07 14:04 | P.PNIM ---
Subjective Interval history: Patient still complains of pain today. No distress. We discussed methadone and a methadone clinic as a discharge option, so transition to methadone for pain and withdraw prevention (Heroin). Physical Exam Vital signs: Vital Signs 05/06/18 15:18 05/06/18 16:00 05/06/18 20:00 Temperature 98.2 F 98.7 F Pulse Rate 65 77 Respiratory Rate 14 12 16 Blood Pressure 116/71 119/65 Pulse Oximetry 98 97 05/07/18 00:00 05/07/18 03:00 05/07/18 04:00 Temperature 98.7 F 98.2 F Pulse Rate 77 75 81 Respiratory Rate 16 18 Blood Pressure 119/65 122/81 Pulse Oximetry 97 95 05/07/18 06:48 05/07/18 06:49 05/07/18 06:50 Temperature Pulse Rate Respiratory Rate 17 18 16 Blood Pressure Pulse Oximetry 05/07/18 07:00 05/07/18 08:00 05/07/18 08:41 Temperature 99.7 F H Pulse Rate 70 68 Respiratory Rate 12 16 Blood Pressure 101/52 L Pulse Oximetry 97 05/07/18 12:48 05/07/18 13:08 Temperature 97.4 F L Pulse Rate 61 71 Respiratory Rate 16 Blood Pressure 116/64 Pulse Oximetry 94 L Intake & Output 05/06/18 05/07/18 05/07/18 18:59 06:59 18:59 Intake Total 980 / 980 2980 / 2980 340 / 340 Output Total 1005 / 1005 Balance 980 / 980 1974 / 1974 340 / 340 Weight 77 kg Intake: IV 100 / 100 100 / 100 100 / 100 Zosyn 3.375 GM Premix 50 ML @ 100 / 100 100 / 100 100 / 100 100 mls/hr IV.SIG Q6H [facility] Rx#: [id number] Oral 880 / 880 880 / 880 240 / 240 Anesthesia Amount 800 / 800 Other 1200 / 1200 Output: Urine 1000 / 1000 Estimated Blood Loss 5 / 5 Other: Mode Setting Left Ankle Continuous Continuous Continuous # Voids 6 6 Date of Last Bowel Movement 05/05/18 05/05/18 05/06/18 # Bowel Movements 2 2 1 Narrative: GENERAL: NAD, A&Ox3 HEAD: Normocephalic. NECK: Supple, trachea midline. No lymphadenopathy. EYES: No scleral icterus. No injection or drainage. CARDIOVASCULAR: Regular rate and rhythm without murmurs, gallops, or rubs. RESPIRATORY: Breath sounds equal bilaterally. No accessory muscle use. GASTROINTESTINAL: Abdomen soft, non-tender, nondistended. MUSCULOSKELETAL: No cyanosis, or edema. Lateral wound VAC on left foot. SKIN: Warm and dry. NEURO: No focal neurological deficits. Results - Labs CBC & Chem 7: 05/05/18 06:30 05/05/18 06:30 - Procedures 04/26/18 - Dr. Conteh - Left ankle incision drainage debridement with application of wound vac Assessment and Plan - Assessment (1) Sepsis Code(s): A41.9 - Sepsis, unspecified organism Status: Acute (2) Foot infection Code(s): L08.9 - Local infection of the skin and subcutaneous tissue, unspecified Status: Acute (3) IVDU (intravenous drug user) Code(s): F19.90 - Other psychoactive substance use, unspecified, uncomplicated Status: Acute (4) Hypokalemia Code(s): E87.6 - Hypokalemia Status: Acute - Plan 43-year-old female admitted secondary to left foot infection related to IV drug abuse, with outpatient treatment failure. Methadone started for pain and buttermaker treatment regarding her Heroin Abuse history. Will wean off other narcotics when stabilized on methadone. Patient is cleared by podiatry for discharge with wound VAC. No option yet for discharge given lack of location to discharge to with wound vac. Sepsis Resolved Left foot abscess/cellulitis Status post I&D Podiatry following Infectious disease following Continue antibiotics Continue monitoring wound status Transient steroids will be provided for degree of inflammation (patient allergic to NSAIDs) IV drug abuse As needed Ativan for withdrawal Monitor clinically General anxiety disorder Continue as needed lorazepam Hemorrhoids Proctofoam Vaginal candidiasis Patient received oral fluconazole Continue Monistat for 7 days topically
[2018-05-07] MEDS ORDERED: Methadone 10 MG Tablet PO ONE (15:00)
[2018-05-08] MEDS: Piperacil/Tazo 3.375 GM Premix 50 ML IV.SIG SCH ×4 (02:44→21:33)
[2018-05-08] MEDS: HYDROmorphone PF Inj 2 MG/ML Vial IV.PUSH PRN ×5 (02:44→20:02)
[2018-05-08] MEDS: LORazepam 1 MG Tablet PO PRN (03:56)
[2018-05-08] MEDS: Morphine Sulfate 15 MG SR Tablet PO SCH ×2 (08:53→21:02)
[2018-05-08] MEDS: Gabapentin 400 MG Capsule PO SCH ×3 (08:54→18:03)
[2018-05-08] MEDS: Senna/Docusate Sodium 8.6/50 MG Tablet PO SCH ×2 (08:54→21:04)
[2018-05-08] MEDS: Sod Chloride 0.9% Inj 1,000 ML IV.CONT SCH ×2 (08:54→16:11)
[2018-05-08] MEDS: QUEtiapine 100 MG Tablet PO SCH ×2 (08:58→14:27)
[2018-05-08] MEDS ORDERED: Methadone 10 MG Tablet PO SCH (09:00)
[2018-05-08] MEDS ORDERED: Methadone 10 MG Tablet PO ONE (11:20)
--- NOTE | 2018-05-08 11:20 | P.PNIM ---
Subjective Interval history: Pain not controlled on 20 mg of methadone. Increase methadone for pain control with intent to transition off of short-acting narcotics. No other complaints from the patient. Physical Exam Vital signs: Vital Signs 05/07/18 12:48 05/07/18 13:08 05/07/18 18:32 Temperature 97.4 F L Pulse Rate 61 71 107 H Respiratory Rate 16 Blood Pressure 116/64 Pulse Oximetry 94 L 05/07/18 20:00 05/07/18 22:00 05/08/18 00:00 Temperature 98.3 F 98.3 F Pulse Rate 78 88 81 Respiratory Rate 16 16 Blood Pressure 111/59 L 117/66 Pulse Oximetry 97 95 05/08/18 02:00 05/08/18 04:00 05/08/18 08:51 Temperature 97.5 F L 98.3 F Pulse Rate 82 76 86 Respiratory Rate 16 18 Blood Pressure 127/80 133/69 Pulse Oximetry 98 Intake & Output 05/07/18 05/08/18 05/08/18 18:59 06:59 18:59 Intake Total 390 / 390 100 / 100 530 / 530 Balance 390 / 390 100 / 100 530 / 530 Weight 82.9 kg Intake: IV 150 / 150 100 / 100 50 / 50 Zosyn 3.375 GM Premix 50 ML @ 150 / 150 100 / 100 50 / 50 100 mls/hr IV.SIG Q6H [facility] Rx#: [id number] Oral 240 / 240 480 / 480 Other: Mode Setting Left Ankle Continuous Continuous Continuous Date of Last Bowel Movement 05/06/18 05/07/18 05/07/18 # Bowel Movements 1 Narrative: GENERAL: NAD, A&Ox3 HEAD: Normocephalic. NECK: Supple, trachea midline. No lymphadenopathy. EYES: No scleral icterus. No injection or drainage. CARDIOVASCULAR: Regular rate and rhythm without murmurs, gallops, or rubs. RESPIRATORY: Breath sounds equal bilaterally. No accessory muscle use. GASTROINTESTINAL: Abdomen soft, non-tender, nondistended. MUSCULOSKELETAL: No cyanosis, or edema. Lateral wound VAC on left foot. SKIN: Warm and dry. NEURO: No focal neurological deficits. Results - Labs CBC & Chem 7: 05/05/18 06:30 05/05/18 06:30 - Procedures 04/26/18 - Dr. Conteh - Left ankle incision drainage debridement with application of wound vac Assessment and Plan - Assessment (1) Sepsis Code(s): A41.9 - Sepsis, unspecified organism Status: Acute (2) Foot infection Code(s): L08.9 - Local infection of the skin and subcutaneous tissue, unspecified Status: Acute (3) IVDU (intravenous drug user) Code(s): F19.90 - Other psychoactive substance use, unspecified, uncomplicated Status: Acute (4) Hypokalemia Code(s): E87.6 - Hypokalemia Status: Acute - Plan 43-year-old female admitted secondary to left foot infection related to IV drug abuse, with outpatient treatment failure. 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 Will wean off other narcotics when stabilized on methadone. Increase methadone daily dosing to 40 mg. Outpatient arrangements for wound VAC and nursing care and possible transport to [place] are in process. Patient may be considered for 2 or 3 days of methadone dosing at discharge to get her up to her methadone clinic in [place]. Sepsis Resolved Left foot abscess/cellulitis Status post I&D Podiatry following Infectious disease following Continue antibiotics Continue monitoring wound status Transient steroids will be provided for degree of inflammation (patient allergic to NSAIDs) Transitioning off of short-acting narcotics Titrating methadone for pain control withdrawal control IV drug abuse History of heroin abuse Transitioning off of short-acting narcotics Titrating methadone for pain control withdrawal control Monitor clinically General anxiety disorder Continue as needed lorazepam Hemorrhoids Proctofoam Vaginal candidiasis Patient received oral fluconazole Continue Monistat for 7 days topically
[2018-05-09] MEDS: Temazepam 15 MG Capsule PO PRN (00:26)
[2018-05-09] MEDS: HYDROmorphone PF Inj 2 MG/ML Vial IV.PUSH PRN ×4 (00:26→12:51)
[2018-05-09] MEDS: Piperacil/Tazo 3.375 GM Premix 50 ML IV.SIG SCH ×4 (03:53→22:34)
[2018-05-09] MEDS: LORazepam 1 MG Tablet PO PRN (04:01)
[2018-05-09 07:32] LABS: Baso # (Auto) 0.1 th/mm3 (0.0-0.2); Baso % (Auto) 1.4 % (0.0-2.0); Eos # (Auto) 0.3 th/mm3 (0.0-0.4); Eos % (Auto) 3.4 % (0.0-4.0); Hematocrit 30.8 % (35.0-46.0); Hemoglobin 9.8 gm/dL (11.6-15.3); Mean Corpuscular HGB Conc 31.8 % (32.0-36.0); Mean Corpuscular Hemoglobin 23.3 pg (27.0-34.0); Mean Corpuscular Volume 73.3 fL (80.0-100.0); Mean Platelet Volume 9.1 fL (7.0-11.0); Mono # (Auto) 0.8 th/mm3 (0.0-0.9); Mono % (Auto) 10.3 % (0.0-8.0); Neut # (Auto) 3.8 th/mm3 (1.8-7.7); Neut % (Auto) 47.9 % (16.0-70.0); Platelet Count 310 th/mm3 (150-450); Red Blood Count 4.21 mil/mm3 (4.00-5.30); Red Cell Distribution Width 18.3 % (11.6-17.2)
[2018-05-09] MEDS: Sod Chloride 0.9% Inj 1,000 ML IV.CONT SCH ×3 (07:45→22:39)
[2018-05-09 07:54] LABS: Alanine Aminotransferase 164 U/L (10-53); Albumin 3.2 g/dL (3.4-5.0); Anion Gap 8 meq/L (5-15); Aspartate Aminotransferase 144 U/L (15-37); Blood Urea Nitrogen 18 mg/dL (7-18); Calcium 8.7 mg/dL (8.5-10.1); Chloride 103 meq/L (98-107); Glomerular Filtration Rate 62 mL/min (>89); Glucose,Random 122 mg/dL (74-106); Potassium 4.3 meq/L (3.5-5.1); Sodium 140 meq/L (136-145)
[2018-05-09 07:55] LABS: Alkaline Phosphatase 106 U/L (45-117); Total Protein 7.6 g/dL (6.4-8.2)
[2018-05-09] MEDS: Methadone 10 MG Tablet PO SCH (08:51)
[2018-05-09] MEDS: Gabapentin 400 MG Capsule PO SCH ×3 (08:51→17:26)
[2018-05-09] MEDS: Senna/Docusate Sodium 8.6/50 MG Tablet PO SCH ×2 (08:52→22:34)
[2018-05-09] MEDS: Morphine Sulfate 15 MG SR Tablet PO SCH (08:52)
[2018-05-09] MEDS: QUEtiapine 100 MG Tablet PO SCH ×2 (09:24→17:28)
--- NOTE | 2018-05-09 13:43 | P.PNIM ---
Subjective Interval history: Patient states that her pain is much more controlled on 40 mg of methadone daily Have discussed with patient and RN Is considering moving back to [place] Discussed with case management and RN Continue current antibiotics Has wound VAC in place on left foot Physical Exam Vital signs: Vital Signs 05/08/18 14:33 05/08/18 16:14 05/08/18 19:49 Temperature 97.8 F 98.1 F 98.3 F Pulse Rate 83 84 76 Respiratory Rate 18 18 18 Blood Pressure 115/65 113/65 113/74 Pulse Oximetry 98 98 97 05/08/18 23:00 05/09/18 00:00 05/09/18 02:00 Temperature 97.7 F Pulse Rate 80 92 H 87 Respiratory Rate 18 Blood Pressure 137/80 Pulse Oximetry 96 05/09/18 04:00 05/09/18 08:00 05/09/18 09:25 Temperature 98.3 F 98.4 F Pulse Rate 78 86 Respiratory Rate 16 17 17 Blood Pressure 120/79 121/80 Pulse Oximetry 98 05/09/18 11:28 05/09/18 12:00 Temperature 98.3 F Pulse Rate 85 Respiratory Rate 19 14 Blood Pressure 109/78 Pulse Oximetry 94 L Intake & Output 05/08/18 05/09/18 05/09/18 18:59 06:59 18:59 Intake Total 1540 / 1540 100 / 100 Balance 1540 / 1540 100 / 100 Weight 85.7 kg Intake: IV 100 / 100 100 / 100 Zosyn 3.375 GM Premix 50 ML @ 100 / 100 100 / 100 100 mls/hr IV.SIG Q6H [facility] Rx#: [id number] Oral 1440 / 1440 Other: Mode Setting Left Ankle Continuous Continuous Continuous # Voids 6 1 Date of Last Bowel Movement 05/07/18 05/08/18 05/08/18 # Bowel Movements 1 Narrative: GENERAL: NAD, A&Ox3 HEAD: Normocephalic. Atraumatic NECK: Supple, trachea midline. No lymphadenopathy. EYES: No scleral icterus. No injection or drainage. PERRLA EOMI CARDIOVASCULAR: Regular rate and rhythm without murmurs, gallops, or rubs. S1- S2 no S3 or S4 RESPIRATORY: Breath sounds equal bilaterally. No accessory muscle use. GASTROINTESTINAL: Abdomen soft, non-tender, nondistended. MUSCULOSKELETAL: No cyanosis, or edema. Lateral wound VAC on left foot. SKIN: Warm and dry. Lateral wound on left foot VAC in place NEURO: No focal neurological deficits. Results - Labs CBC & Chem 7: 05/09/18 06:58 05/09/18 06:58 Laboratory Results - last 24 hr 05/09/18 05/09/18 06:58 06:58 WBC 8.0 RBC 4.21 Hgb 9.8 L Hct 30.8 L MCV 73.3 L MCH 23.3 L MCHC 31.8 L RDW 18.3 H Plt Count 310 D MPV 9.1 Neut % (Auto) 47.9 Lymph % (Auto) 37.0 Jay % (Auto) 10.3 H Eos % (Auto) 3.4 Baso % (Auto) 1.4 Neut # (Auto) 3.8 Lymph # (Auto) 3.0 Jay # (Auto) 0.8 Eos # (Auto) 0.3 Baso # (Auto) 0.1 WBC Differential . Differential Comment Auto diff final Sodium 140 Potassium 4.3 Chloride 103 Carbon Dioxide 29.0 Anion Gap 8 BUN 18 Creatinine 0.98 Estimated GFR 62 L Random Glucose 122 H Calcium 8.7 Total Bilirubin 0.2 AST 144 H ALT 164 H Alkaline Phosphatase 106 Total Protein 7.6 Albumin 3.2 L - Imaging Ankle X-Ray 04/26/18 23:12 CONCLUSION: Extensive soft tissue swelling with air in the soft tissues of the lateral left foot posteriorly characteristic of infection with gas producing organism. Foot X-Ray 04/26/18 23:12 CONCLUSION: Infection of the lateral posterior left foot with gas producing organism. No acute bony abnormality identified on plain film. - Procedures 04/26/18 - Dr. Conteh - Left ankle incision drainage debridement with application of wound vac Assessment and Plan - Assessment (1) Sepsis Code(s): A41.9 - Sepsis, unspecified organism Status: Acute (2) Foot infection Code(s): L08.9 - Local infection of the skin and subcutaneous tissue, unspecified Status: Acute (3) IVDU (intravenous drug user) Code(s): F19.90 - Other psychoactive substance use, unspecified, uncomplicated Status: Acute (4) Hypokalemia Code(s): E87.6 - Hypokalemia Status: Acute - Plan 43-year-old female admitted secondary to left foot infection related to IV drug abuse, with outpatient treatment failure. 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 Will wean off other narcotics when stabilized on methadone. Increase methadone daily dosing to 40 mg. Outpatient arrangements for wound VAC and nursing care and possible transport to [place] are in process. Patient may be considered for 2 or 3 days of methadone dosing at discharge to get her up to her methadone clinic in [place]. Sepsis Resolved Left foot abscess/cellulitis Status post I&D Podiatry following Infectious disease following Continue antibiotics Continue monitoring wound status Transient steroids will be provided for degree of inflammation (patient allergic to NSAIDs) Transitioning off of short-acting narcotics Titrating methadone for pain control withdrawal control AT 40MG PO DAILY IV drug abuse History of heroin abuse Transitioning off of short-acting narcotics Titrating methadone for pain control withdrawal control Monitor clinically METHADONE 40MG PO DAILY General anxiety disorder Continue as needed lorazepam Hemorrhoids Proctofoam Vaginal candidiasis Patient received oral fluconazole Continue Monistat for 7 days topically Code Status: FULL CODE Discussed Condition With: [facility] RN AND PT AND CM Discharge Planning: PENDING CLEARANCE BY ALL
[2018-05-10] MEDS: Piperacil/Tazo 3.375 GM Premix 50 ML IV.SIG SCH ×4 (03:37→21:22)
[2018-05-10] MEDS: Sod Chloride 0.9% Inj 1,000 ML IV.CONT SCH (07:16)
[2018-05-10 07:18] LABS: Baso # (Auto) 0.1 th/mm3 (0.0-0.2); Baso % (Auto) 1.2 % (0.0-2.0); Eos # (Auto) 0.3 th/mm3 (0.0-0.4); Eos % (Auto) 4.2 % (0.0-4.0); Hematocrit 29.8 % (35.0-46.0); Hemoglobin 9.4 gm/dL (11.6-15.3); Lymph # (Auto) 2.9 th/mm3 (1.0-4.8); Lymph % (Auto) 38.7 % (9.0-44.0); Mean Corpuscular HGB Conc 31.4 % (32.0-36.0); Mean Platelet Volume 9.3 fL (7.0-11.0); Mono # (Auto) 0.8 th/mm3 (0.0-0.9); Mono % (Auto) 11.3 % (0.0-8.0); Neut # (Auto) 3.3 th/mm3 (1.8-7.7); Neut % (Auto) 44.6 % (16.0-70.0); Platelet Count 270 th/mm3 (150-450); Red Blood Count 4.08 mil/mm3 (4.00-5.30); Red Cell Distribution Width 18.2 % (11.6-17.2); White Blood Count 7.4 th/mm3 (4.0-11.0)
[2018-05-10 07:27] LABS: Albumin 2.8 g/dL (3.4-5.0); Anion Gap 8 meq/L (5-15); Aspartate Aminotransferase 154 U/L (15-37); Blood Urea Nitrogen 18 mg/dL (7-18); Calcium 8.8 mg/dL (8.5-10.1); Carbon Dioxide 30.3 meq/L (21.0-32.0); Chloride 100 meq/L (98-107); Glomerular Filtration Rate 64 mL/min (>89); Glucose,Random 106 mg/dL (74-106); Magnesium 2.2 mg/dL (1.5-2.5); Potassium 4.3 meq/L (3.5-5.1); Sodium 138 meq/L (136-145)
[2018-05-10 07:28] LABS: Alanine Aminotransferase 183 U/L (10-53)
[2018-05-10 07:38] LABS: Alkaline Phosphatase 116 U/L (45-117); Total Protein 7.2 g/dL (6.4-8.2)
[2018-05-10] MEDS: Methadone 10 MG Tablet PO SCH (08:51)
[2018-05-10] MEDS: Gabapentin 400 MG Capsule PO SCH ×3 (08:52→17:19)
[2018-05-10] MEDS: QUEtiapine 100 MG Tablet PO SCH (08:53)
[2018-05-10] MEDS: Senna/Docusate Sodium 8.6/50 MG Tablet PO SCH ×2 (08:53→21:23)
--- NOTE | 2018-05-10 10:10 | P.PN ---
Subjective Interval history: Follow-up on patient with left foot abscess/cellulitis. Patient seen and examined. Patient complains of frequent sweating. She denies any fever or chills. She denies any chest pain or shortness of breath. States she thinks she is wheezing. She is requesting increase in her pain medication regimen. She plans to follow-up with methadone clinic in [place] -patient was not previously on methadone prior to this admission. She is afebrile, vital signs stable. Physical Exam Vital signs: Vital Signs 05/09/18 11:28 05/09/18 11:41 05/09/18 12:00 Temperature 98.3 F Pulse Rate 80 Respiratory Rate 19 17 14 Blood Pressure 109/78 Pulse Oximetry 94 L 05/09/18 16:00 05/09/18 21:45 05/10/18 00:00 Temperature 97.9 F 98.7 F 98.2 F Pulse Rate 93 H 78 96 H Respiratory Rate 16 17 18 Blood Pressure 126/68 127/70 106/57 L Pulse Oximetry 94 L 97 95 05/10/18 03:39 05/10/18 08:00 Temperature 98.7 F 98.5 F Pulse Rate 81 73 Respiratory Rate 14 14 Blood Pressure 111/69 98/55 L Pulse Oximetry 98 97 Intake & Output 05/09/18 05/10/18 05/10/18 18:59 06:59 18:59 Intake Total 50 / 50 1700 / 1700 50 / 50 Output Total 2 / 2 Balance 50 / 50 1698 / 1698 50 / 50 Intake: IV 50 / 50 50 / 50 50 / 50 Zosyn 3.375 GM Premix 50 ML @ 50 / 50 50 / 50 50 / 50 100 mls/hr IV.SIG Q6H [facility] Rx#: [id number] Oral 1650 / 1650 Output: Stool 2 / 2 Other: Mode Setting Left Ankle Continuous Continuous # Voids 5 Date of Last Bowel Movement 05/08/18 05/10/18 # Bowel Movements 1 Narrative: GENERAL: Well-developed, well-nourished, overweight female patient INAD, Awake and alert. Appears comfortable, sitting up in bed eating breakfast. SKIN: Warm and dry. No generalized rash. HEENT: Normocephalic. Atraumatic. EOMI. Sclera anicteric. No nasal drainage. MMM. Airway patent. NECK: Supple, trachea midline. No lymphadenopathy. CARDIOVASCULAR: Regular rate and rhythm without murmurs, gallops, or rubs. RESPIRATORY: Nonlabored. Clear to auscultation bilaterally. No accessory muscle use. No wheezing or rhonchi noted on exam. GASTROINTESTINAL: Abdomen soft, non-tender, nondistended. +BS. MUSCULOSKELETAL: No cyanosis. Mild edema noted in left foot with some mild dusky erythema noted over top of left foot below the toes and over the top of the left ankle. Lateral wound VAC in place on left foot with good seal, sutures intact. NEURO: Awake and alert. CN II-XII grossly intact. Able to move all extremities spontaneously. No focal neurological deficits. PSYCHIATRIC: Calm and cooperative. Results - Labs CBC & Chem 7: 05/10/18 05:45 05/10/18 05:45 Laboratory Results - last 24 hr 05/10/18 05/10/18 05:45 05:45 WBC 7.4 RBC 4.08 Hgb 9.4 L Hct 29.8 L MCV 73.0 L MCH 23.0 L MCHC 31.4 L RDW 18.2 H Plt Count 270 MPV 9.3 Neut % (Auto) 44.6 Lymph % (Auto) 38.7 [place] % (Auto) 11.3 H Eos % (Auto) 4.2 H Baso % (Auto) 1.2 Neut # (Auto) 3.3 Lymph # (Auto) 2.9 [place] # (Auto) 0.8 Eos # (Auto) 0.3 Baso # (Auto) 0.1 WBC Differential . Differential Comment Auto diff final Sodium 138 Potassium 4.3 Chloride 100 Carbon Dioxide 30.3 Anion Gap 8 BUN 18 Creatinine 0.96 Estimated GFR 64 L Random Glucose 106 Calcium 8.8 Magnesium 2.2 Total Bilirubin 0.3 AST 154 H ALT 183 H Alkaline Phosphatase 116 Total Protein 7.2 Albumin 2.8 L TSH 1.240 Free T4 1.00 - Procedures 04/26/18 - Dr. Conteh - Left ankle incision drainage debridement with application of wound vac Assessment and Plan - Assessment (1) Sepsis Code(s): A41.9 - Sepsis, unspecified organism Status: Acute (2) Foot infection Code(s): L08.9 - Local infection of the skin and subcutaneous tissue, unspecified Status: Acute (3) IVDU (intravenous drug user) Code(s): F19.90 - Other psychoactive substance use, unspecified, uncomplicated Status: Acute (4) Hypokalemia Code(s): E87.6 - Hypokalemia Status: Acute - Plan 43-year-old female admitted secondary to left foot infection related to IV drug abuse, with outpatient treatment failure. 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 Will wean off other narcotics when stabilized on methadone. Increase methadone daily dosing to 40 mg. Outpatient arrangements for wound VAC and nursing care and possible transport to [place] are in process. Patient may be considered for 2 or 3 days of methadone dosing at discharge to get her up to her methadone clinic in [place]. Sepsis Resolved Left foot abscess/cellulitis Status post I&D and wound vac placement Podiatry following Infectious disease following -okay to discharge on Augmentin 500 mg p.o. TID x 7 -10 days Continue antibiotics Continue monitoring wound status Transitioning off of short-acting narcotics Titrating methadone for pain control withdrawal control AT 40MG PO DAILY - patient not on methadone prior to this admission. Plans to follow-up in methadone clinic once she returns to [place]. Concern for drug-seeking behavior. IV drug abuse History of heroin abuse Allergy to NSAIDS Transitioning off of short-acting narcotics Titrating methadone for pain control withdrawal control Monitor clinically METHADONE 40MG PO DAILY Transaminitis, acute, possibly DILI Hx of Hepatitis C AST 154, ALT 183 Discussed with patient today states she was diagnosed with hep C 2 years ago, treatment daisy, no follow-up. Obtain hepatitis profile and liver ultrasound Discussed with patient follow-up with GI as outpatient Avoidance of hepatotoxic agents - hold Seroquel, discontinue acetaminophen General anxiety disorder Continue as needed lorazepam Hemorrhoids Proctofoam Vaginal candidiasis Patient received oral fluconazole Continue Monistat for 7 days topically Discussed Condition With: patient, nursing staff and Dr. Olson Discharge Planning: Case management assisting with discharge planning, patient will need wound care/ wound VAC set up at time of discharge.
[2018-05-10 10:46] LABS: Hemoglobin A1c 5.7 % (4.3-6.0)
[2018-05-10] MEDS: LORazepam 1 MG Tablet PO PRN ×2 (11:40→19:30)
[2018-05-10 14:03] LABS: Hepatitis A IgM Antibody Nonreactive (Nonreactive); Hepatitits B Surface Antigen Nonreactive (Nonreactive)
--- NOTE | 2018-05-10 17:57 | US ---
EXAM DATE: 05/10/2018 5:51 PM EDT AGE/SEX: 43 years / Female INDICATIONS: Elevated lab values. CLINICAL DATA: This is the patient's initial encounter. Patient reports that signs and symptoms have been present for 1 day and indicates a pain score of 0/10. MEDICAL/SURGICAL HISTORY: . Elevated liver function tests. Tubal ligation. COMPARISON: No prior exams available for comparison. MEASUREMENTS: Liver:__ 19.2 cm. Common Bile Duct:__ 6mm. Right Kidney:__ 10.3 x 4.7 x 4.7 cm. FINDINGS: Liver: Normal echotexture without focal lesion or ductal dilatation. Portal Vein: Hepatopedal flow seen in portal vein. Common Duct: No intraluminal mass or stone visualized. Gallbladder: Demonstrates no wall thickening or pericholecystic fluid. No stones visualized. Pancreas: The visualized portions are within normal limits Right Kidney: Normal echotexture and cortical thickness. No mass or hydronephrosis. Other: Spleen measures almost 13 cm in cranial caudal dimension. CONCLUSION: 1. Slight splenomegaly. Electronically signed by: Devante Gleason MD 05/10/2018 5:56 PM EDT
[2018-05-10] MEDS: Temazepam 15 MG Capsule PO PRN (23:32)
[2018-05-11] MEDS: LORazepam 1 MG Tablet PO PRN ×4 (01:35→23:59)
[2018-05-11] MEDS: Piperacil/Tazo 3.375 GM Premix 50 ML IV.SIG SCH ×4 (05:11→21:01)
[2018-05-11] MEDS: Gabapentin 400 MG Capsule PO SCH ×3 (08:52→17:15)
[2018-05-11] MEDS: Senna/Docusate Sodium 8.6/50 MG Tablet PO SCH ×2 (08:53→20:12)
[2018-05-11] MEDS: Methadone 10 MG Tablet PO SCH (08:53)
[2018-05-11] MEDS: REMOVE OLD NICOTINE PATCH T-DERMAL SCH (10:25)
[2018-05-11 14:19] LABS: Albumin 3.3 g/dL (3.4-5.0)
[2018-05-11 14:21] LABS: Total Protein 8.3 g/dL (6.4-8.2)
--- NOTE | 2018-05-11 15:25 | P.CONGI ---
History of Present Illness Consult date: 05/11/18 Consult reason: Elevated LFTs, abdominal cramping Chief complaint: foot abscess cellulitis History of Present Illness: This is a 43 yo F with history significant for IV drug abuse and Hepatitis C who presented to the ER on April 26 with complaints of left foot pain and swelling after injection of IV heroin into her left foot. Pt now S/P I&D with wound vac. Our service has been consulted to evaluate pt for elevated LFTs and abdominal cramping. History is difficult to obtain, pt is drowsy and keeps stating she is confused. Pt with positive Hepatitis C antibody, states has been told during previous hospitalization but has not been started on any treatment. Pt reports uncle with cirrhosis but that he had Hepatitis. Denies any other known family history of liver issues. Pt denies ETOH. Reports IV use of heroine, also admits to occasional crack or meth use. Has 8 tattoos, two were done at a friends house. Denies high risk sexual behaviors. Pt also complaining of pain over her entire abdomen, states pain is constant, described as cramping, says it feels like her menstrual cycle pains. Also reports nausea , unsure how long this has been going on for, denies emesis. States she is normally constipated when she uses heroine, but when she is not on heroine BMs are normal. Of note, currently withdrawing from heroine. <Bev Zepeda - Last Filed: 05/11/18 14:56> Review of Systems Gastrointestinal: Reports abdominal pain, Reports constipation, Reports nausea, Denies black, tarry stools, Denies bright, red blood in stools, Denies vomiting <Bev Zepeda - Last Filed: 05/11/18 14:56> PMFSH - History History Provided By: Patient - Medical History Medical History: Medical History (Last Reviewed 04/24/18 @ 02:20 by Malorie Dhaliwal) Tubal ligation status - Tobacco History Second Hand Smoke Exposure: Yes Tobacco Use In Past 30 Days: Yes Smoking Status: Current every day smoker Tobacco Type: Cigarettes - Alcohol History How Often Do You Have a Drink Containing Alcohol: Never - Substance Use History Substance History: Active Abuse - Substance Use Type Heroin Status: Active Route Used: Inhalation Last Used: 04/26 Reason for Use: Feels Good, Get High Comment: "TAKE THE PAIN AWAY" - Travel History Recent Travel in the [place] Within the Last 8 Weeks: No Recent Travel Out of the Country Within the Last 8 Weeks: No - Immunization History Tetanus Immunization: Unsure Tetanus Immunization Year if Known: 2014 Hx Influenza Vaccine This Season: No <Bev Zepeda - Last Filed: 05/11/18 14:56> - Medical History Medical History: Medical History (Last Reviewed 04/24/18 @ 02:20 by Malorie Dhaliwal) Tubal ligation status <Isreal Fernández - Last Filed: 05/11/18 15:54> Medications and Allergies Active Medications: Active Medications Al Hydroxide/Mg Hydroxide (Milk Of Magnesia Liq) 30 ml PO Q12H PRN PRN Reason: Mild Constipation Bisacodyl (Dulcolax Supp) 10 mg RECTAL DAILY PRN PRN Reason: SEVERE CONSITIPATION Gabapentin (Neurontin) 400 mg PO TID [facility] Last Admin: 05/11/18 08:52 Dose: 400 mg Piperacillin/Tazobactam/Dextrose (Zosyn 3.375 Gm Premix) 50 mls @ 100 mls/hr IV.SIG Q6H [facility] Last Admin: 05/11/18 10:25 Dose: 100 mls/hr Lactulose (Lactulose Liq) 30 ml PO DAILY PRN PRN Reason: SEVERE CONSITIPATION Lorazepam (Ativan) 1 mg PO Q6H PRN PRN Reason: ANXIETY AND/OR AGITATION Last Admin: 05/11/18 08:52 Dose: 1 mg Methadone HCl (Dolophine) 40 mg PO DAILY [facility] Last Admin: 05/11/18 08:53 Dose: 40 mg Metoclopramide HCl (Reglan Inj) 5 mg IV.PUSH Q6HR PRN; Protocol PRN Reason: NAUSEA OR VOMITING Miscellaneous (Pill Splitter) 1 each OTHER UNSCH PRN PRN Reason: PILL SPLITTING Nicotine (Habitrol 14 Mg Patch.24 Hr) 1 patch T-DERMAL DAILY [facility] Last Admin: 05/11/18 08:52 Dose: 1 patch Oxycodone HCl (Roxicodone) 10 mg PO Q4H PRN PRN Reason: Pain 5-10 Last Admin: 05/11/18 13:46 Dose: 10 mg Pantoprazole Sodium (Protonix) 40 mg PO DAILY [facility] Last Admin: 05/11/18 08:52 Dose: 40 mg Patch Removal (Remove Old Patch) 1 each T-DERMAL DAILY [facility] Last Admin: 05/11/18 10:25 Dose: 1 each Quetiapine Fumarate (Seroquel) 100 mg PO BID@0900,1500 [facility] Last Admin: 05/10/18 08:53 Dose: Not Given Quetiapine Fumarate (Seroquel) 300 mg PO HS [facility] Last Admin: 05/09/18 22:34 Dose: 300 mg Senna/Docusate Sodium (Yue-Colace) 1 tab PO BID [facility] Last Admin: 05/11/18 08:53 Dose: 1 tab Sennosides (Senokot) 17.2 mg PO Q12H PRN PRN Reason: Moderate Constipation Temazepam (Restoril) 15 mg PO HS PRN PRN Reason: INSOMNIA Last Admin: 05/10/18 23:32 Dose: 15 mg <Bev Zepeda - Last Filed: 05/11/18 14:56> Active Medications: Active Medications Al Hydroxide/Mg Hydroxide (Milk Of Magnesia Liq) 30 ml PO Q12H PRN PRN Reason: Mild Constipation Bisacodyl (Dulcolax Supp) 10 mg RECTAL DAILY PRN PRN Reason: SEVERE CONSITIPATION Gabapentin (Neurontin) 400 mg PO TID [facility] Last Admin: 05/11/18 08:52 Dose: 400 mg Piperacillin/Tazobactam/Dextrose (Zosyn 3.375 Gm Premix) 50 mls @ 100 mls/hr IV.SIG Q6H [facility] Last Admin: 05/11/18 10:25 Dose: 100 mls/hr Lactulose (Lactulose Liq) 30 ml PO DAILY PRN PRN Reason: SEVERE CONSITIPATION Lorazepam (Ativan) 1 mg PO Q6H PRN PRN Reason: ANXIETY AND/OR AGITATION Last Admin: 05/11/18 08:52 Dose: 1 mg Methadone HCl (Dolophine) 40 mg PO DAILY [facility] Last Admin: 05/11/18 08:53 Dose: 40 mg Metoclopramide HCl (Reglan Inj) 5 mg IV.PUSH Q6HR PRN; Protocol PRN Reason: NAUSEA OR VOMITING Miscellaneous (Pill Splitter) 1 each OTHER UNSCH PRN PRN Reason: PILL SPLITTING Nicotine (Habitrol 14 Mg Patch.24 Hr) 1 patch T-DERMAL DAILY [facility] Last Admin: 05/11/18 08:52 Dose: 1 patch Oxycodone HCl (Roxicodone) 10 mg PO Q4H PRN PRN Reason: Pain 5-10 Last Admin: 05/11/18 13:46 Dose: 10 mg Pantoprazole Sodium (Protonix) 40 mg PO DAILY [facility] Last Admin: 05/11/18 08:52 Dose: 40 mg Patch Removal (Remove Old Patch) 1 each T-DERMAL DAILY [facility] Last Admin: 05/11/18 10:25 Dose: 1 each Quetiapine Fumarate (Seroquel) 100 mg PO BID@0900,1500 [facility] Last Admin: 05/10/18 08:53 Dose: Not Given Quetiapine Fumarate (Seroquel) 300 mg PO HS [facility] Last Admin: 05/09/18 22:34 Dose: 300 mg Senna/Docusate Sodium (Yue-Colace) 1 tab PO BID [facility] Last Admin: 05/11/18 08:53 Dose: 1 tab Sennosides (Senokot) 17.2 mg PO Q12H PRN PRN Reason: Moderate Constipation Temazepam (Restoril) 15 mg PO HS PRN PRN Reason: INSOMNIA Last Admin: 05/10/18 23:32 Dose: 15 mg <Isreal Fernández - Last Filed: 05/11/18 15:54> Allergies Allergy/AdvReac Type Severity Reaction Status Date / Time ibuprofen Allergy Severe Edema Verified 04/26/18 20:38 Home Medications Medication Instructions Recorded Confirmed Type No Known Home Medications 04/26/18 04/26/18 History Exam Vital signs: Vital Signs 05/10/18 16:00 05/10/18 20:00 05/11/18 01:40 Temperature 99.1 F 98.6 F 98.3 F Pulse Rate 88 90 92 H Respiratory Rate 16 18 18 Blood Pressure 124/78 133/69 129/67 Pulse Oximetry 97 97 97 05/11/18 04:00 05/11/18 08:00 05/11/18 08:48 Temperature 98.2 F 98.1 F Pulse Rate 97 H 78 Respiratory Rate 18 20 18 Blood Pressure 120/77 113/59 L Pulse Oximetry 98 96 05/11/18 10:23 05/11/18 12:00 Temperature 98.1 F Pulse Rate 89 Respiratory Rate 18 20 Blood Pressure 121/77 Pulse Oximetry 96 Intake & Output 05/10/18 05/11/18 05/11/18 18:59 06:59 18:59 Intake Total 100 / 100 100 / 100 Output Total 2 / 2 Balance 100 / 100 98 / 98 Weight 85.2 kg Intake: IV 100 / 100 100 / 100 Zosyn 3.375 GM Premix 50 ML @ 100 / 100 100 / 100 100 mls/hr IV.SIG Q6H [facility] Rx#: [id number] Output: Stool 2 / 2 Other: Mode Setting Left Ankle Continuous Continuous # Voids 7 6 Date of Last Bowel Movement 05/11/18 - Constitutional no acute distress - Routine HEENT Exam Head: Present: normocephalic, atraumatic - Routine Respiratory Exam Absent: accessory muscle use - Routine Cardiovascular Exam Present: RRR - Routine Abdominal Exam Present: soft, normoactive bowel sounds. Absent: tenderness, distended - Routine Skin Exam Present: dry, warm Comments: wound vac to left foot - Routine Neurological Exam Present: alert, oriented X3 <Bev Zepeda - Last Filed: 05/11/18 14:56> Vital signs: Vital Signs 05/10/18 16:00 05/10/18 20:00 05/11/18 01:40 Temperature 99.1 F 98.6 F 98.3 F Pulse Rate 88 90 92 H Respiratory Rate 16 18 18 Blood Pressure 124/78 133/69 129/67 Pulse Oximetry 97 97 97 05/11/18 04:00 05/11/18 08:00 05/11/18 08:48 Temperature 98.2 F 98.1 F Pulse Rate 97 H 78 Respiratory Rate 18 20 18 Blood Pressure 120/77 113/59 L Pulse Oximetry 98 96 05/11/18 10:23 05/11/18 12:00 Temperature 98.1 F Pulse Rate 89 Respiratory Rate 18 20 Blood Pressure 121/77 Pulse Oximetry 96 Intake & Output 05/10/18 05/11/18 05/11/18 18:59 06:59 18:59 Intake Total 100 / 100 100 / 100 Output Total 2 / 2 Balance 100 / 100 98 / 98 Weight 85.2 kg Intake: IV 100 / 100 100 / 100 Zosyn 3.375 GM Premix 50 ML @ 100 / 100 100 / 100 100 mls/hr IV.SIG Q6H [facility] Rx#: [id number] Output: Stool 2 / 2 Other: Mode Setting Left Ankle Continuous Continuous # Voids 7 6 Date of Last Bowel Movement 05/11/18 <Isreal Fernández - Last Filed: 05/11/18 15:54> Results - Labs CBC & Chem 7: 05/10/18 05:45 05/10/18 05:45 Labs: Laboratory Results - last 24 hr 05/11/18 13:20 Total Bilirubin 0.3 Direct Bilirubin 0.1 Indirect Bilirubin 0.2 AST 179 H ALT 219 H Alkaline Phosphatase 147 H Total Protein 8.3 H D Albumin 3.3 L - Imaging Impressions Liver Ultrasound 05/10/18 00:00 CONCLUSION: 1. Slight splenomegaly. <Bev Zepeda - Last Filed: 05/11/18 14:56> - Labs CBC & Chem 7: 05/10/18 05:45 05/10/18 05:45 Labs: Laboratory Results - last 24 hr 05/11/18 13:20 Total Bilirubin 0.3 Direct Bilirubin 0.1 Indirect Bilirubin 0.2 AST 179 H ALT 219 H Alkaline Phosphatase 147 H Total Protein 8.3 H D Albumin 3.3 L - Imaging Impressions Liver Ultrasound 05/10/18 00:00 CONCLUSION: 1. Slight splenomegaly. <Isreal Fernández - Last Filed: 05/11/18 15:54> Assessment and Plan - Plan Assessment: - Elevated LFTs with positive Hepatitis C antibody Admitted with LLE abscess/cellulitis S/P I&D and placement of wound vac- presented after IV heroine use into her left foot LFTs have trended up since admission Pt states has been diagnosed with Hepatitis C during previous admission but has never received treatment for this. Also admits to meth and crack use. Denies ETOH. Has 8 tattoos, 2 done at a friends house. Denies high risk sexual behaviors. US liver --> Slight splenomegaly ] - Abdominal pain, states generalized over entire abdomen, constant, described as cramping, compares the pain to her menstrual cycle - Constipation- secondary to heroine use, states BMs are normal when she is not on heroine Plan: Hep C genotype and quant CT abdomen and pelvis Avoid hepatotoxins Continue supportive care Further recommendations to follow Pt has been seen and examined by myself and Dr. Fernández and this note is written on his behalf <Bev Zepeda - Last Filed: 05/11/18 14:56> - Plan Seen and examined, HEPC estrada ordered. - Attending Attestation The exam, history, and the medical decision-making described in the above note were completed with the assistance of the mid-level provider. I reviewed and agree with the findings presented. I attest that I had a [id number] encounter with the patient on the same day, and personally performed and documented my assessment and findings in the medical record. <Isreal Fernández - Last Filed: 05/11/18 15:54>
--- NOTE | 2018-05-11 16:02 | P.PN ---
Subjective Interval history: Follow-up on patient with left foot abscess/cellulitis. Patient seen and examined. Patient requesting an increase in her pain medication. She complains of profuse sweating, loose stools, nausea and abdominal cramping. She denies any chest pain or shortness of breath. She is afebrile. VSS. Physical Exam Vital signs: Vital Signs 05/10/18 16:00 05/10/18 20:00 05/11/18 01:40 Temperature 99.1 F 98.6 F 98.3 F Pulse Rate 88 90 92 H Respiratory Rate 16 18 18 Blood Pressure 124/78 133/69 129/67 Pulse Oximetry 97 97 97 05/11/18 04:00 05/11/18 08:00 05/11/18 08:48 Temperature 98.2 F 98.1 F Pulse Rate 97 H 78 Respiratory Rate 18 20 18 Blood Pressure 120/77 113/59 L Pulse Oximetry 98 96 05/11/18 10:23 05/11/18 12:00 Temperature 98.1 F Pulse Rate 89 Respiratory Rate 18 20 Blood Pressure 121/77 Pulse Oximetry 96 Intake & Output 05/10/18 05/11/18 05/11/18 18:59 06:59 18:59 Intake Total 100 / 100 100 / 100 Output Total 2 / 2 Balance 100 / 100 98 / 98 Weight 85.2 kg Intake: IV 100 / 100 100 / 100 Zosyn 3.375 GM Premix 50 ML @ 100 / 100 100 / 100 100 mls/hr IV.SIG Q6H [facility] Rx#: [id number] Output: Stool 2 / 2 Other: Mode Setting Left Ankle Continuous Continuous # Voids 7 6 Date of Last Bowel Movement 05/11/18 Narrative: GENERAL: Well-developed, well-nourished, overweight female patient INAD. Awake and alert. Sitting in bedside chair. Appears comfortable. SKIN: Warm and dry. No generalized rash. HEENT: Normocephalic. Atraumatic. EOMI. Sclera anicteric. No nasal drainage. MMM. Airway patent. NECK: Supple, trachea midline. No lymphadenopathy. CARDIOVASCULAR: Regular rate and rhythm without murmurs, gallops, or rubs. RESPIRATORY: Nonlabored. Clear to auscultation bilaterally. No accessory muscle use. No wheezing or rhonchi noted on exam. GASTROINTESTINAL: Abdomen soft, non-tender, nondistended. +BS. MUSCULOSKELETAL: No cyanosis. Mild edema noted in left foot with some mild dusky erythema noted over top of left foot below the toes and over the top of the left ankle. Lateral wound VAC in place on left foot with good seal, sutures intact. NEURO: Awake and alert. CN II-XII grossly intact. Able to move all extremities spontaneously. No focal neurological deficits. PSYCHIATRIC: Calm and cooperative. Results - Labs CBC & Chem 7: 05/10/18 05:45 05/10/18 05:45 Laboratory Results - last 24 hr 05/11/18 13:20 Total Bilirubin 0.3 Direct Bilirubin 0.1 Indirect Bilirubin 0.2 AST 179 H ALT 219 H Alkaline Phosphatase 147 H Total Protein 8.3 H D Albumin 3.3 L Microbiology 04/27/18 02:35 Wound - Ankle Fungal Smear - Final No fungal elements seen 04/27/18 02:35 Wound - Ankle Fungal Culture - Preliminary No growth in 2 weeks 04/27/18 02:35 Wound - Ankle Acid Fast Bacilli Smear - Final No acid fast bacilli seen 04/27/18 02:35 Wound - Ankle Mycobacterial Culture - Preliminary No growth in 2 weeks 04/27/18 02:30 Wound - Ankle Fungal Smear - Final No fungal elements seen 04/27/18 02:30 Wound - Ankle Fungal Culture - Preliminary No growth in 2 weeks 04/27/18 02:30 Wound - Ankle Acid Fast Bacilli Smear - Final No acid fast bacilli seen 04/27/18 02:30 Wound - Ankle Mycobacterial Culture - Preliminary No growth in 2 weeks - Imaging Impressions Liver Ultrasound 05/10/18 00:00 CONCLUSION: 1. Slight splenomegaly. ITS Impressions Ankle X-Ray 04/26/18 23:12 CONCLUSION: Extensive soft tissue swelling with air in the soft tissues of the lateral left foot posteriorly characteristic of infection with gas producing organism. Foot X-Ray 04/26/18 23:12 CONCLUSION: Infection of the lateral posterior left foot with gas producing organism. No acute bony abnormality identified on plain film. Liver Ultrasound 05/10/18 00:00 CONCLUSION: 1. Slight splenomegaly. - Procedures 04/26/18 - Dr. Conteh - Left ankle incision drainage debridement with application of wound vac Assessment and Plan - Assessment (1) Sepsis Code(s): A41.9 - Sepsis, unspecified organism Status: Acute (2) Foot infection Code(s): L08.9 - Local infection of the skin and subcutaneous tissue, unspecified Status: Acute (3) IVDU (intravenous drug user) Code(s): F19.90 - Other psychoactive substance use, unspecified, uncomplicated Status: Acute (4) Hypokalemia Code(s): E87.6 - Hypokalemia Status: Acute - Plan 43-year-old female admitted secondary to left foot infection related to IV drug abuse, with outpatient treatment failure. Methadone started for pain and care home treatment regarding her Heroin Abuse history. Will wean off other narcotics when stabilized on methadone. Increase methadone daily dosing to 40 mg. Outpatient arrangements for wound VAC and nursing care and possible transport to [place] are in process. Patient may be considered for 2 or 3 days of methadone dosing at discharge to get her up to her methadone clinic in [place]. Sepsis Resolved Left foot abscess/cellulitis Wound cx + Klebsiella pneumoniae Status post I&D and wound vac placement Podiatry following Infectious disease following -okay to discharge on Augmentin 500 mg p.o. TID x 7 -10 days Continue antibiotics Continue monitoring wound status Transitioning off of short-acting narcotics Titrating methadone for pain control withdrawal control AT 40MG PO DAILY - patient not on methadone prior to this admission. Plans to follow-up in methadone clinic once she returns to [place]. Concern for drug-seeking behavior. 05/11 patient requesting an increase in pain medication. DW Dr. Olson, no change in pain regimen at this time. IV drug abuse History of heroin abuse Allergy to NSAIDS Transitioning off of short-acting narcotics Titrating methadone for pain control withdrawal control Monitor clinically METHADONE 40MG PO DAILY Transaminitis, acute, possibly DILI Hx of Hepatitis C, dx'd 2 yrs ago, treatment naive LFTs trending up Liver US +slight splenomegaly Hep profile +Hep C Consult GI, appreciate assistance Avoidance of hepatotoxic agents - hold Seroquel, discontinue acetaminophen General anxiety disorder Continue as needed lorazepam Hemorrhoids Proctofoam Vaginal candidiasis Patient received oral fluconazole Continue Monistat for 7 days topically DVT prophylaxis Heparin sq Discussed Condition With: patient, nursing staff, CM and Dr. Olson Discharge Planning: Case management assisting with discharge planning, patient will need wound care/ wound VAC set up at time of discharge.
[2018-05-11] MEDS ORDERED: Diatrizoate Meglum/Diatrizoate Sod Liq 9 ML UDC PO ONE (17:00)
[2018-05-11] MEDS: Heparin - SQ 10,000 UNITS/ML Vial SQ SCH (20:11)
--- NOTE | 2018-05-12 00:03 | CT ---
EXAM DATE: 05/11/2018 11:45 PM EDT AGE/SEX: 43 years / Female INDICATIONS: Abdomen pain. CLINICAL DATA: This is the patient's initial encounter. Patient reports that signs and symptoms have been present for 1 day and indicates a pain score of 5/10. MEDICAL/SURGICAL HISTORY: Hepatitis C. Tubal ligation. RADIATION DOSE: 15.51 CTDI (mGy) COMPARISON: No prior exams available for comparison. TECHNIQUE: Multiple contiguous axial images were obtained through the abdomen. Images were obtained using multiple row detector helical technique. Using automated exposure control and adjustment of the mA and/or kV according to patient size, radiation dose was kept as low as reasonably achievable to o btain optimal diagnostic quality images. DICOM format image data is available electronically for rev iew and comparison. FINDINGS: Lower Lungs: The visualized lower lungs are clear. Liver: The liver has a homogeneous density without space-occupying lesion. There is no dilation of th e biliary tree. The gallbladder is unremarkable in appearance. Spleen: Homogeneous density without enlargement. Pancreas: Unremarkable without mass or calcification. Kidneys: Normal in size and shape. No evidence of mass or hydronephrosis. There is a 1.3 cm calcific ation the lower left central collecting system. The ureters are unremarkable in appearance. Adrenal Glands: Unremarkable. Aorta: The aorta and proximal iliac vessels are grossly unremarkable without aneurysmal dilation. Bowel/Mesentery: There is oral opacification of the proximal and mid small bowel. The bowel loops are grossly unremarkable. The cecum and sigmoid colon have a normal configuration. There is a normal ronny endix. Abdominal Wall: Intact. Retroperitoneum: No evidence of adenopathy in the retrocrural, para-aortic, or deep pelvic regions. Bladder: Contours are smooth. Reproductive Organs: No abnormal masses or calcifications seen. Inguinal: The inguinal region is unremarkable without evidence of adenopathy. Bony Structures: Unremarkable. CONCLUSION: 1. Nonobstructing 1.3 cm left renal calculus. 2. Unremarkable bowel gas pattern and normal appendix. Electronically signed by: Bud Díaz MD 05/12/2018 12:02 AM EDT
[2018-05-12] MEDS: Piperacil/Tazo 3.375 GM Premix 50 ML IV.SIG SCH ×2 (03:51→08:17)
[2018-05-12] MEDS: LORazepam 1 MG Tablet PO PRN ×3 (06:22→23:38)
[2018-05-12] MEDS: Gabapentin 400 MG Capsule PO SCH ×3 (08:16→17:42)
[2018-05-12] MEDS: Heparin - SQ 10,000 UNITS/ML Vial SQ SCH ×3 (08:16→21:08)
[2018-05-12] MEDS: Senna/Docusate Sodium 8.6/50 MG Tablet PO SCH ×3 (08:16→21:08)
[2018-05-12] MEDS: REMOVE OLD NICOTINE PATCH T-DERMAL SCH (08:17)
[2018-05-12] MEDS: Methadone 10 MG Tablet PO SCH (08:17)
--- NOTE | 2018-05-12 09:47 | P.PN ---
Subjective Interval history: Follow-up on patient with left foot abscess/cellulitis. Patient seen and examined. She is somewhat lethargic. Patient continues to complain of nightly sweating. She denies any complaints of cough or shortness of breath. She denies complaints of chest pain. She reports persistent nausea but denies any vomiting. She was able tolerate breakfast. Today she also reports new onset left-sided "dull and sharp" flank pain. She is requesting increase in her pain medications. Discussed with nursing staff, patient has been refusing wound VAC changes unless she gets IV Dilaudid. She reports multiple soft bowel movements per day. She denies any dysuria. Physical Exam Vital signs: Vital Signs 05/11/18 10:23 05/11/18 12:00 05/11/18 16:00 Temperature 98.1 F 98.6 F Pulse Rate 89 90 Respiratory Rate 18 20 20 Blood Pressure 121/77 105/59 L Pulse Oximetry 96 93 L 05/11/18 20:00 05/12/18 00:00 05/12/18 01:23 Temperature 98.3 F 98.3 F Pulse Rate 98 H 97 H 89 Respiratory Rate 18 18 Blood Pressure 131/81 144/76 H Pulse Oximetry 96 96 05/12/18 04:00 05/12/18 08:00 Temperature 98.5 F 98.3 F Pulse Rate 86 80 Respiratory Rate 18 16 Blood Pressure 158/64 H 112/75 Pulse Oximetry 97 Intake & Output 05/11/18 05/12/18 05/12/18 18:59 06:59 18:59 Intake Total 50 / 50 150 / 150 Balance 50 / 50 150 / 150 Weight 85.2 kg Intake: IV 50 / 50 150 / 150 Zosyn 3.375 GM Premix 50 ML @ 50 / 50 150 / 150 100 mls/hr IV.SIG Q6H [facility] Rx#: [id number] Other: Mode Setting Left Ankle Continuous Continuous # Voids 3 1 Date of Last Bowel Movement 05/11/18 05/11/18 Narrative: GENERAL: Well-developed, well-nourished, overweight female patient INAD. Awake and alert. Patient witnessed bending over picking things up off the floor without any noticeable difficulty prior to me entering the room. SKIN: Warm and dry. No generalized rash. HEENT: Normocephalic. Atraumatic. EOMI. Sclera anicteric. No nasal drainage. MMM. Airway patent. NECK: Supple, trachea midline. No lymphadenopathy. CARDIOVASCULAR: Regular rate and rhythm without murmurs, gallops, or rubs. RESPIRATORY: Nonlabored. Clear to auscultation bilaterally. No accessory muscle use. No wheezing or rhonchi noted on exam. GASTROINTESTINAL: Abdomen soft, non-tender, nondistended. +BS. +subjective tenderness to palpation over left sided flank area. Skin over area WNL. No masses appreciated on palpation. MUSCULOSKELETAL: No cyanosis. Mild edema noted in left foot with some mild dusky erythema noted over top of left foot below the toes and over the top of the left ankle. Lateral wound VAC in place on left foot with good seal, sutures intact. NEURO: Awake and alert but appears somewhat lethargic. CN II-XII grossly intact. Able to move all extremities spontaneously. No focal neurological deficits. PSYCHIATRIC: Calm and cooperative. Results - Labs CBC & Chem 7: 05/10/18 05:45 05/10/18 05:45 Laboratory Results - last 24 hr 05/11/18 13:20 Total Bilirubin 0.3 Direct Bilirubin 0.1 Indirect Bilirubin 0.2 AST 179 H ALT 219 H Alkaline Phosphatase 147 H Total Protein 8.3 H D Albumin 3.3 L Microbiology 04/27/18 02:35 Wound - Ankle Fungal Smear - Final No fungal elements seen 04/27/18 02:35 Wound - Ankle Fungal Culture - Preliminary No growth in 2 weeks 04/27/18 02:35 Wound - Ankle Acid Fast Bacilli Smear - Final No acid fast bacilli seen 04/27/18 02:35 Wound - Ankle Mycobacterial Culture - Preliminary No growth in 2 weeks 04/27/18 02:30 Wound - Ankle Fungal Smear - Final No fungal elements seen 04/27/18 02:30 Wound - Ankle Fungal Culture - Preliminary No growth in 2 weeks 04/27/18 02:30 Wound - Ankle Acid Fast Bacilli Smear - Final No acid fast bacilli seen 04/27/18 02:30 Wound - Ankle Mycobacterial Culture - Preliminary No growth in 2 weeks - Imaging Impressions Abdomen/Pelvis CT 05/11/18 00:00 CONCLUSION: 1. Nonobstructing 1.3 cm left renal calculus. 2. Unremarkable bowel gas pattern and normal appendix. - Procedures 04/26/18 - Dr. Conteh - Left ankle incision drainage debridement with application of wound vac Assessment and Plan - Assessment (1) Sepsis Code(s): A41.9 - Sepsis, unspecified organism Status: Acute (2) Foot infection Code(s): L08.9 - Local infection of the skin and subcutaneous tissue, unspecified Status: Acute (3) IVDU (intravenous drug user) Code(s): F19.90 - Other psychoactive substance use, unspecified, uncomplicated Status: Acute (4) Hypokalemia Code(s): E87.6 - Hypokalemia Status: Acute - Plan 43-year-old female admitted secondary to left foot infection related to IV drug abuse, with outpatient treatment failure. Sepsis Resolved Left foot abscess/cellulitis Wound cx + Klebsiella pneumoniae Status post I&D and wound vac placement Podiatry following, wound vac in place, patient refusing wound vac changes Infectious disease following -okay to discharge on Augmentin 500 mg p.o. TID x 7 -10 days. D/C Zosyn. Begin po Augmentin. Continue antibiotics Continue monitoring wound status Transitioning off of short-acting narcotics and Methadone IV drug abuse History of heroin abuse Allergy to NSAIDS 05/11 Appears more lethargic on exam today Transitioning off of short-acting narcotics and Methadone, decrease dose of Roxicodone to 5mg q4h and Methadone to 30mg daily obtain urine drug screen Monitor clinically Transaminitis, acute, possibly DILI Hx of Hepatitis C, dx'd 2 yrs ago, treatment aive Left sided flank pain of uncertain etiology CT shows nonobstructing 1.3cm left renal calculus LFTs continue to trend up - repeat LFTs in am Liver US +slight splenomegaly Hep profile +Hep C. HCV genotype pending GI following, appreciate assistance Avoidance of hepatotoxic agents Left sided flank pain ?renal colic CT shows nonobstructing 1.3cm left renal calculus Encourage po intake monitor General anxiety disorder Continue as needed lorazepam Hemorrhoids Proctofoam Vaginal candidiasis Patient received oral fluconazole Continue Monistat for 7 days topically DVT prophylaxis Heparin sq Discussed Condition With: patient, nursing staff, CM and Dr. Wooten Discharge Planning: Case management assisting with discharge planning, patient will need wound care/ wound VAC set up at time of discharge.
--- NOTE | 2018-05-12 11:34 | P.PNGI ---
Subjective Interval history: Pt sitting on side of bed. Pt complaining of pain to her left foot. Denies any abdominal pain or cramping today. States some mild nausea earlier but now resolved, no emesis. <Bev Zepeda - Last Filed: 05/12/18 11:28> Physical Exam Vital signs: Vital Signs 05/11/18 12:00 05/11/18 16:00 05/11/18 20:00 Temperature 98.1 F 98.6 F 98.3 F Pulse Rate 89 90 98 H Respiratory Rate 20 20 18 Blood Pressure 121/77 105/59 L 131/81 Pulse Oximetry 96 93 L 96 05/12/18 00:00 05/12/18 01:23 05/12/18 04:00 Temperature 98.3 F 98.5 F Pulse Rate 97 H 89 86 Respiratory Rate 18 18 Blood Pressure 144/76 H 158/64 H Pulse Oximetry 96 97 05/12/18 08:00 Temperature 98.3 F Pulse Rate 80 Respiratory Rate 16 Blood Pressure 112/75 Pulse Oximetry Intake & Output 05/11/18 05/12/18 05/12/18 18:59 06:59 18:59 Intake Total 50 / 50 150 / 150 Balance 50 / 50 150 / 150 Weight 85.2 kg Intake: IV 50 / 50 150 / 150 Zosyn 3.375 GM Premix 50 ML @ 50 / 50 150 / 150 100 mls/hr IV.SIG Q6H [facility] Rx#: [id number] Other: Mode Setting Left Ankle Continuous Continuous Continuous # Voids 3 1 Date of Last Bowel Movement 05/11/18 05/11/18 - Constitutional no acute distress - Routine HEENT Exam Head: Present: normocephalic, atraumatic - Routine Respiratory Exam Absent: accessory muscle use - Routine Abdominal Exam Present: soft, normoactive bowel sounds. Absent: tenderness, distended - Routine Skin Exam Present: dry, warm - Routine Neurological Exam Present: alert, oriented X3 <Bev Zepeda - Last Filed: 05/12/18 11:28> Vital signs: Vital Signs 05/11/18 16:00 05/11/18 20:00 05/12/18 00:00 Temperature 98.6 F 98.3 F 98.3 F Pulse Rate 90 98 H 97 H Respiratory Rate 20 18 18 Blood Pressure 105/59 L 131/81 144/76 H Pulse Oximetry 93 L 96 96 05/12/18 01:23 05/12/18 04:00 05/12/18 08:00 Temperature 98.5 F 98.3 F Pulse Rate 89 86 80 Respiratory Rate 18 16 Blood Pressure 158/64 H 112/75 Pulse Oximetry 97 05/12/18 12:00 Temperature 98.1 F Pulse Rate 84 Respiratory Rate 18 Blood Pressure 135/83 Pulse Oximetry 96 Intake & Output 05/11/18 05/12/18 05/12/18 18:59 06:59 18:59 Intake Total 50 / 50 150 / 150 50 / 50 Balance 50 / 50 150 / 150 50 / 50 Weight 85.2 kg Intake: IV 50 / 50 150 / 150 50 / 50 Zosyn 3.375 GM Premix 50 ML @ 50 / 50 150 / 150 50 / 50 100 mls/hr IV.SIG Q6H [facility] Rx#: [id number] Other: Mode Setting Left Ankle Continuous Continuous Continuous # Voids 3 1 Date of Last Bowel Movement 05/11/18 05/11/18 <Isreal Fernández - Last Filed: 05/12/18 15:00> Results - Labs CBC & Chem 7: 05/10/18 05:45 05/10/18 05:45 Laboratory Results - last 24 hr 05/11/18 13:20 Total Bilirubin 0.3 Direct Bilirubin 0.1 Indirect Bilirubin 0.2 AST 179 H ALT 219 H Alkaline Phosphatase 147 H Total Protein 8.3 H D Albumin 3.3 L Microbiology 04/27/18 02:35 Wound - Ankle Fungal Smear - Final No fungal elements seen 04/27/18 02:35 Wound - Ankle Fungal Culture - Preliminary No growth in 2 weeks 04/27/18 02:35 Wound - Ankle Acid Fast Bacilli Smear - Final No acid fast bacilli seen 04/27/18 02:35 Wound - Ankle Mycobacterial Culture - Preliminary No growth in 2 weeks 04/27/18 02:30 Wound - Ankle Fungal Smear - Final No fungal elements seen 04/27/18 02:30 Wound - Ankle Fungal Culture - Preliminary No growth in 2 weeks 04/27/18 02:30 Wound - Ankle Acid Fast Bacilli Smear - Final No acid fast bacilli seen 04/27/18 02:30 Wound - Ankle Mycobacterial Culture - Preliminary No growth in 2 weeks - Imaging Impressions Abdomen/Pelvis CT 05/11/18 00:00 CONCLUSION: 1. Nonobstructing 1.3 cm left renal calculus. 2. Unremarkable bowel gas pattern and normal appendix. - Procedures 04/26/18 - Dr. Conteh - Left ankle incision drainage debridement with application of wound vac <Bev Zepeda - Last Filed: 05/12/18 11:28> - Labs CBC & Chem 7: 05/10/18 05:45 05/10/18 05:45 Microbiology 04/27/18 02:35 Wound - Ankle Fungal Smear - Final No fungal elements seen 04/27/18 02:35 Wound - Ankle Fungal Culture - Preliminary No growth in 2 weeks 04/27/18 02:35 Wound - Ankle Acid Fast Bacilli Smear - Final No acid fast bacilli seen 04/27/18 02:35 Wound - Ankle Mycobacterial Culture - Preliminary No growth in 2 weeks 04/27/18 02:30 Wound - Ankle Fungal Smear - Final No fungal elements seen 04/27/18 02:30 Wound - Ankle Fungal Culture - Preliminary No growth in 2 weeks 04/27/18 02:30 Wound - Ankle Acid Fast Bacilli Smear - Final No acid fast bacilli seen 04/27/18 02:30 Wound - Ankle Mycobacterial Culture - Preliminary No growth in 2 weeks - Imaging Impressions Abdomen/Pelvis CT 05/11/18 00:00 CONCLUSION: 1. Nonobstructing 1.3 cm left renal calculus. 2. Unremarkable bowel gas pattern and normal appendix. <Isreal Fernández - Last Filed: 05/12/18 15:00> Assessment and Plan - Plan Assessment: - Elevated LFTs with positive Hepatitis C antibody Admitted with LLE abscess/cellulitis S/P I&D and placement of wound vac- presented after IV heroine use into her left foot LFTs have trended up since admission Pt states has been diagnosed with Hepatitis C during previous admission but has never received treatment for this. Also admits to meth and crack use. Denies ETOH. Has 8 tattoos, 2 done at a friends house. Denies high risk sexual behaviors. US liver --> Slight splenomegaly ] - Abdominal pain, states generalized over entire abdomen, constant, described as cramping, compares the pain to her menstrual cycle - Constipation- secondary to heroine use, states BMs are normal when she is not on heroine (05/12) Pt sitting on side of bed, complaining of pain in her left foot. States some mild nausea earlier but now resolved. Denies any abdominal pain or cramping today. CT abdomen and pelvis --> Nonobstructing 1.3 cm left renal calculus. Unremarkable bowel gas pattern and normal appendix. Hep C genotype and quant pending, no repeat LFTs from today Plan: Hep C genotype and quant If indicated will need to be started on treatment outpatient Avoid hepatotoxins Continue supportive care Further recommendations to follow Pt has been seen and examined by myself and Dr. Fernández and this note is written on his behalf <Bev Zepeda - Last Filed: 05/12/18 11:28> - Plan Sifuentes in progress for elevated LFTs. - Attending Attestation The exam, history, and the medical decision-making described in the above note were completed with the assistance of the mid-level provider. I reviewed and agree with the findings presented. I attest that I had a [id number] encounter with the patient on the same day, and personally performed and documented my assessment and findings in the medical record. <Isreal Fernández - Last Filed: 05/12/18 15:00>
[2018-05-12] MEDS ORDERED: Methadone 10 MG Tablet PO SCH (13:03)
[2018-05-12] MEDS: Amoxicillin/Clavulanate 500/125 MG Tablet PO SCH (17:42)
[2018-05-13 01:39] LABS: Bacteria,Urine Rare /hpf; Bilirubin,Urine Negative (Negative); Clarity,Urine Hazy (Clear); Color,Urine Yellow (Yellw/Straw); Glucose,Urine (UA) Negative (Negative); Leukocyte Esterase,Urine Small (Negative); Nitrite,Urine Negative (Negative); Specific Gravity,Urine 1.017 (1.002-1.035); Squamous Epithelial Cell,Urine 1 /hpf (0-5)
[2018-05-13 01:40] LABS: Amphetamine Screen,Urine Neg (Neg); Barbiturate Screen,Urine Neg (Neg); Cannabinoid Screen,Urine Neg (Neg); Cocaine Screen,Urine Neg (Neg)
[2018-05-13 01:41] LABS: Opiate Screen,Urine Neg (Neg)
[2018-05-13] MEDS: LORazepam 1 MG Tablet PO PRN ×3 (05:56→19:59)
--- NOTE | 2018-05-13 07:41 | P.PN ---
Subjective Interval history: Follow-up on patient with left foot abscess/cellulitis. Patient seen and examined. Patient has been refusing wound VAC changes without IV Dilaudid. She denies any new medical complaints today. Discussed with nursing staff, no acute issues noted. She will attempt to perform wound VAC change later today. Physical Exam Vital signs: Vital Signs 05/12/18 08:00 05/12/18 12:00 05/12/18 16:00 Temperature 98.3 F 98.1 F 98.3 F Pulse Rate 80 84 91 H Respiratory Rate 18 Blood Pressure 112/75 135/83 132/76 Pulse Oximetry 96 94 L 05/12/18 17:10 05/12/18 20:00 05/13/18 00:00 Temperature 98.3 F 98.5 F Pulse Rate 83 82 Respiratory Rate 18 Blood Pressure 114/70 126/73 Pulse Oximetry 98 96 05/13/18 03:31 05/13/18 04:00 05/13/18 07:26 Temperature 98.5 F 98.6 F Pulse Rate 83 77 Respiratory Rate 18 18 12 Blood Pressure 130/77 104/60 Pulse Oximetry 100 97 Intake & Output 05/12/18 05/13/18 05/13/18 18:59 06:59 18:59 Intake Total 50 / 50 3650 / 3650 800 / 800 Output Total 1007 / 1007 Balance 50 / 50 2643 / 2643 800 / 800 Weight 85.2 kg Intake: IV 50 / 50 Zosyn 3.375 GM Premix 50 ML @ 50 / 50 100 mls/hr IV.SIG Q6H [facility] Rx#: [id number] Oral 1650 / 1650 800 / 800 Anesthesia Amount 800 / 800 Other 1200 / 1200 Output: Urine 1000 / 1000 Stool 2 / 2 Estimated Blood Loss 5 / 5 Other: Mode Setting Left Ankle Continuous Continuous # Voids 1 4 4 Date of Last Bowel Movement 05/11/18 05/12/18 # Bowel Movements 1 Narrative: GENERAL: Well-developed, well-nourished, overweight female patient INAD. Awake and alert. Appears comfortable. SKIN: Warm and dry. No generalized rash. HEENT: Normocephalic. Atraumatic. EOMI. Sclera anicteric. No nasal drainage. MMM. Airway patent. NECK: Supple, trachea midline. No lymphadenopathy. CARDIOVASCULAR: Regular rate and rhythm without murmurs, gallops, or rubs. RESPIRATORY: Nonlabored. Clear to auscultation bilaterally. No accessory muscle use. No wheezing or rhonchi noted on exam. GASTROINTESTINAL: Abdomen soft, non-tender, nondistended. +BS. +subjective tenderness to palpation over left sided flank area. Skin over area WNL. No masses appreciated on palpation. MUSCULOSKELETAL: No cyanosis. Lateral wound VAC in place on left foot. NEURO: Awake and alert but appears somewhat lethargic. CN II-XII grossly intact. Able to move all extremities spontaneously. No focal neurological deficits. PSYCHIATRIC: Calm and cooperative. Results - Labs CBC & Chem 7: 05/10/18 05:45 05/13/18 06:13 Laboratory Results - last 24 hr 05/13/18 05/13/18 00:58 00:58 Urine Color Yellow Urine Clarity Hazy H Urine pH 7.0 Ur Specific [place] 1.017 Urine Protein Negative Urine Glucose (UA) Negative Urine Ketones Negative Urine Occult Blood Negative Urine Nitrate Negative Urine Bilirubin Negative Urine Urobilinogen 2.0 H Ur Leukocyte Esterase Small H Urine RBC 4 H Urine WBC 21 H Ur Squamous Epith Cells 1 Urine Bacteria Rare H Micro UA Comment Culture indicated Urine Culture Comments Culture indicated Urine Opiates Screen Neg Ur Barbiturates Screen Neg Ur Amphetamines Screen Neg U Benzodiazepines Scrn Neg Urine Cocaine Screen Neg U Cannabinoids Screen Neg - Imaging Ankle X-Ray 04/26/18 23:12 CONCLUSION: Extensive soft tissue swelling with air in the soft tissues of the lateral left foot posteriorly characteristic of infection with gas producing organism. Foot X-Ray 04/26/18 23:12 CONCLUSION: Infection of the lateral posterior left foot with gas producing organism. No acute bony abnormality identified on plain film. Liver Ultrasound 05/10/18 00:00 CONCLUSION: 1. Slight splenomegaly. Abdomen/Pelvis CT 05/11/18 00:00 CONCLUSION: 1. Nonobstructing 1.3 cm left renal calculus. 2. Unremarkable bowel gas pattern and normal appendix. - Procedures 04/26/18 - Dr. Conteh - Left ankle incision drainage debridement with application of wound vac Assessment and Plan - Assessment (1) Sepsis Code(s): A41.9 - Sepsis, unspecified organism Status: Acute (2) Foot infection Code(s): L08.9 - Local infection of the skin and subcutaneous tissue, unspecified Status: Acute (3) IVDU (intravenous drug user) Code(s): F19.90 - Other psychoactive substance use, unspecified, uncomplicated Status: Acute (4) Hypokalemia Code(s): E87.6 - Hypokalemia Status: Acute - Plan 43-year-old female admitted secondary to left foot infection related to IV drug abuse, with outpatient treatment failure. Sepsis Resolved Left foot abscess/cellulitis Wound cx + Klebsiella pneumoniae Status post I&D and wound vac placement Podiatry following, wound vac in place, patient refusing wound vac changes without IV Dilaudid. Explained to patient she will not get IV Dilaudid for wound vac changes as she would normally be at home with nursing care performing changes without IV pain medication. Infectious disease following -okay to discharge on Augmentin 500 mg p.o. TID x 7 -10 days. Continue on Augmentin. Continue antibiotics Continue monitoring wound status Transitioning off of Methadone IV drug abuse History of heroin abuse Allergy to NSAIDS Continue transitioning off of methadone, decrease methadone to 20mg daily. Continue Roxicodone 5mg q4h prn Interestingly, patient's urine drug screen is negative despite being given opiates and benzodiazepines this admission. [facility] nursing staff, monitor patient cautiously when taking oral benzodiazepines and pain medications. Will order Methadone urine drug screen. Monitor clinically Transaminitis, acute, possibly DILI Hx of Hepatitis C, dx'd 2 yrs ago, treatment aive Left sided flank pain of uncertain etiology CT shows nonobstructing 1.3cm left renal calculus LFTs much improved Liver US +slight splenomegaly Hep profile +Hep C. HCV genotype pending GI following, appreciate assistance Avoidance of hepatotoxic agents Left sided flank pain ?renal colic CT shows nonobstructing 1.3cm left renal calculus Encourage po intake monitor General anxiety disorder Continue as needed lorazepam Hemorrhoids Proctofoam Vaginal candidiasis Patient received oral fluconazole Continue Monistat for 7 days topically DVT prophylaxis Heparin sq Discussed Condition With: patient, nursing staff, Dr. Wooten Discharge Planning: Case management assisting with discharge planning, patient will need wound care/ wound VAC set up at time of discharge.
[2018-05-13 07:51] LABS: Albumin 3.1 g/dL (3.4-5.0); Anion Gap 8 meq/L (5-15); Aspartate Aminotransferase 85 U/L (15-37); Blood Urea Nitrogen 17 mg/dL (7-18); Carbon Dioxide 28.2 meq/L (21.0-32.0); Chloride 103 meq/L (98-107); Glomerular Filtration Rate 70 mL/min (>89); Glucose,Random 115 mg/dL (74-106); Potassium 4.2 meq/L (3.5-5.1); Sodium 139 meq/L (136-145)
[2018-05-13 07:56] LABS: Alanine Aminotransferase 149 U/L (10-53); Alkaline Phosphatase 161 U/L (45-117); Total Protein 8.1 g/dL (6.4-8.2)
[2018-05-13] MEDS: Heparin - SQ 10,000 UNITS/ML Vial SQ SCH ×2 (08:14→20:31)
[2018-05-13] MEDS: Amoxicillin/Clavulanate 500/125 MG Tablet PO SCH ×3 (08:15→18:24)
[2018-05-13] MEDS: Gabapentin 400 MG Capsule PO SCH ×3 (08:16→18:24)
[2018-05-13] MEDS: Senna/Docusate Sodium 8.6/50 MG Tablet PO SCH ×2 (08:16→20:31)
[2018-05-13] MEDS: REMOVE OLD NICOTINE PATCH T-DERMAL SCH (08:16)
--- NOTE | 2018-05-13 14:24 | P.PNGI ---
Subjective Interval history: Pt standing up in room, complaining of pain to her left foot. Also reports her left flank pain that she relates to kidney stone pain. Denies nausea, vomiting, abdominal pain elsewhere. Physical Exam Vital signs: Vital Signs 05/12/18 16:00 05/12/18 17:10 05/12/18 20:00 Temperature 98.3 F 98.3 F Pulse Rate 91 H 83 Respiratory Rate 18 16 18 Blood Pressure 132/76 114/70 Pulse Oximetry 94 L 98 05/13/18 00:00 05/13/18 03:31 05/13/18 04:00 Temperature 98.5 F 98.5 F Pulse Rate 82 83 Respiratory Rate 18 18 18 Blood Pressure 126/73 130/77 Pulse Oximetry 96 100 05/13/18 07:26 05/13/18 08:00 05/13/18 12:00 Temperature 98.6 F 98 F Pulse Rate 77 79 Respiratory Rate 12 16 16 Blood Pressure 104/60 109/58 L Pulse Oximetry 97 96 05/13/18 12:35 Temperature Pulse Rate Respiratory Rate 16 Blood Pressure Pulse Oximetry Intake & Output 05/12/18 05/13/18 05/13/18 18:59 06:59 18:59 Intake Total 50 / 50 3650 / 3650 800 / 800 Output Total 1007 / 1007 Balance 50 / 50 2643 / 2643 800 / 800 Weight 85.2 kg Intake: IV 50 / 50 Zosyn 3.375 GM Premix 50 ML @ 50 / 50 100 mls/hr IV.SIG Q6H [facility] Rx#: [id number] Oral 1650 / 1650 800 / 800 Anesthesia Amount 800 / 800 Other 1200 / 1200 Output: Urine 1000 / 1000 Stool 2 / 2 Estimated Blood Loss 5 / 5 Other: Mode Setting Left Ankle Continuous Continuous Continuous # Voids 1 4 4 Date of Last Bowel Movement 05/11/18 05/12/18 05/12/18 # Bowel Movements 1 - Constitutional no acute distress - Routine HEENT Exam Head: Present: normocephalic, atraumatic - Routine Respiratory Exam Absent: accessory muscle use - Routine Abdominal Exam Present: soft, normoactive bowel sounds. Absent: tenderness, distended - Routine Skin Exam Present: dry, warm - Routine Neurological Exam Present: alert, oriented X3 Results - Labs CBC & Chem 7: 05/10/18 05:45 05/13/18 06:13 Laboratory Results - last 24 hr 05/13/18 05/13/18 05/13/18 00:58 00:58 06:13 Sodium 139 Potassium 4.2 Chloride 103 Carbon Dioxide 28.2 Anion Gap 8 BUN 17 Creatinine 0.88 Estimated GFR 70 L Random Glucose 115 H Calcium 9.0 Total Bilirubin 0.3 AST 85 H ALT 149 H Alkaline Phosphatase 161 H Total Protein 8.1 Albumin 3.1 L Urine Color Yellow Urine Clarity Hazy H Urine pH 7.0 Ur Specific [place] 1.017 Urine Protein Negative Urine Glucose (UA) Negative Urine Ketones Negative Urine Occult Blood Negative Urine Nitrate Negative Urine Bilirubin Negative Urine Urobilinogen 2.0 H Ur Leukocyte Esterase Small H Urine RBC 4 H Urine WBC 21 H Ur Squamous Epith Cells 1 Urine Bacteria Rare H Micro UA Comment Culture indicated Urine Culture Comments Culture indicated Urine Opiates Screen Neg Ur Barbiturates Screen Neg Ur Amphetamines Screen Neg U Benzodiazepines Scrn Neg Urine Cocaine Screen Neg U Cannabinoids Screen Neg - Procedures 04/26/18 - Dr. Conteh - Left ankle incision drainage debridement with application of wound vac Assessment and Plan - Plan Assessment: - Elevated LFTs with positive Hepatitis C antibody Admitted with LLE abscess/cellulitis S/P I&D and placement of wound vac- presented after IV heroine use into her left foot LFTs have trended up since admission Pt states has been diagnosed with Hepatitis C during previous admission but has never received treatment for this. Also admits to meth and crack use. Denies ETOH. Has 8 tattoos, 2 done at a friends house. Denies high risk sexual behaviors. US liver --> Slight splenomegaly ] - Abdominal pain, states generalized over entire abdomen, constant, described as cramping, compares the pain to her menstrual cycle - Constipation- secondary to heroine use, states BMs are normal when she is not on heroine (05/12) Pt sitting on side of bed, complaining of pain in her left foot. States some mild nausea earlier but now resolved. Denies any abdominal pain or cramping today. CT abdomen and pelvis --> Nonobstructing 1.3 cm left renal calculus. Unremarkable bowel gas pattern and normal appendix. Hep C genotype and quant pending, no repeat LFTs from today (05/13) LFTs trending down, Hep C genotype and quant still pending. Pt reports some left flank pain that she attributes to kidney stone. Denies any nausea, vomiting, abdominal pain other than flank pain. Plan: Hep C genotype and quant If indicated will need to be started on treatment outpatient Avoid hepatotoxins Continue supportive care Further recommendations to follow Pt has been seen and examined by myself and Dr. Fernández and this note is written on his behalf
[2018-05-13 17:05] LABS: Bilirubin,Urine Negative (Negative); Clarity,Urine Hazy (Clear); Color,Urine Yellow (Yellw/Straw); Glucose,Urine (UA) Negative (Negative); Leukocyte Esterase,Urine Moderate (Negative); Mucus,Urine Few /lpf (Occasional); Nitrite,Urine Negative (Negative); Specific Gravity,Urine 1.017 (1.002-1.035); Squamous Epithelial Cell,Urine 2 /hpf (0-5)
[2018-05-13 17:07] LABS: Bacteria,Urine Occasional /hpf
[2018-05-14 00:15] LABS: Amphetamine Screen,Urine Neg (Neg); Barbiturate Screen,Urine Neg (Neg); Cannabinoid Screen,Urine Neg (Neg); Cocaine Screen,Urine Neg (Neg)
[2018-05-14 00:17] LABS: Opiate Screen,Urine Neg (Neg)
[2018-05-14] MEDS: LORazepam 1 MG Tablet PO PRN ×3 (00:33→18:24)
--- NOTE | 2018-05-14 07:34 | P.PN ---
Subjective Interval history: Follow-up on patient with left foot abscess/cellulitis, IVDU. Patient seen and examined. Patient states she feels "blah" today. She denies any specific medical complaints. She states it is due to the situation she is in. She denies any fever or chills. She denies any chest pain or shortness of breath. She denies any nausea, vomiting or abdominal pain. She was agreeable to having her wound VAC changed yesterday. Physical Exam Vital signs: Vital Signs 05/13/18 08:00 05/13/18 12:00 05/13/18 12:35 Temperature 98 F Pulse Rate 79 Respiratory Rate 16 16 16 Blood Pressure 109/58 L Pulse Oximetry 96 05/13/18 16:00 05/13/18 20:00 05/14/18 00:00 Temperature 98.3 F 98.0 F Pulse Rate 99 H 81 6 L Respiratory Rate 18 16 18 Blood Pressure 137/88 126/86 121/77 Pulse Oximetry 98 98 96 05/14/18 00:29 Temperature Pulse Rate Respiratory Rate 16 Blood Pressure Pulse Oximetry Intake & Output 05/13/18 05/14/18 05/14/18 18:59 06:59 18:59 Intake Total 800 / 800 2800 / 2800 Output Total 1007 / 1007 Balance 800 / 800 1793 / 1793 Intake: Oral 800 / 800 800 / 800 Anesthesia Amount 800 / 800 Other 1200 / 1200 Output: Urine 1000 / 1000 Stool 2 / 2 Estimated Blood Loss 5 / 5 Other: Mode Setting Left Ankle Continuous Continuous # Voids 4 2 Date of Last Bowel Movement 05/12/18 05/13/18 # Bowel Movements 1 Narrative: GENERAL: Well-developed, well-nourished, overweight female patient INAD. Awake and alert. Appears comfortable lying in bed. SKIN: Warm and dry. No generalized rash. HEENT: Normocephalic. Atraumatic. EOMI. Sclera anicteric. No nasal drainage. MMM. Airway patent. NECK: Supple, trachea midline. No lymphadenopathy. CARDIOVASCULAR: Regular rate and rhythm without murmurs, gallops, or rubs. RESPIRATORY: Nonlabored. Clear to auscultation bilaterally. No accessory muscle use. No wheezing or rhonchi noted on exam. GASTROINTESTINAL: Abdomen soft, non-tender, nondistended. +BS. MUSCULOSKELETAL: No cyanosis. Lateral wound VAC in place on left foot. NEURO: Awake and alert but appears somewhat lethargic. CN II-XII grossly intact. Able to move all extremities spontaneously. No focal neurological deficits. PSYCHIATRIC: Calm and cooperative. Results - Labs CBC & Chem 7: 05/10/18 05:45 05/13/18 06:13 Laboratory Results - last 24 hr 05/13/18 05/13/18 05/13/18 06:13 16:25 16:25 Sodium 139 Potassium 4.2 Chloride 103 Carbon Dioxide 28.2 Anion Gap 8 BUN 17 Creatinine 0.88 Estimated GFR 70 L Random Glucose 115 H Calcium 9.0 Total Bilirubin 0.3 AST 85 H ALT 149 H Alkaline Phosphatase 161 H Total Protein 8.1 Albumin 3.1 L Urine Color Yellow Urine Clarity Hazy H Urine pH 5.0 Ur Specific [place] 1.017 Urine Protein Negative Urine Glucose (UA) Negative Urine Ketones Negative Urine Occult Blood Negative Urine Nitrate Negative Urine Bilirubin Negative Urine Urobilinogen Less than 2 Ur Leukocyte Esterase Moderate H Urine RBC 1 Urine WBC 32 H Ur Squamous Epith Cells 2 Urine Bacteria Occasional H Urine Mucus Few H Micro UA Comment Culture indicated Urine Culture Comments Culture indicated Urine Opiates Screen Neg Ur Barbiturates Screen Neg Ur Amphetamines Screen Neg U Benzodiazepines Scrn Neg Urine Cocaine Screen Neg U Cannabinoids Screen Neg - Imaging Ankle X-Ray 04/26/18 23:12 CONCLUSION: Extensive soft tissue swelling with air in the soft tissues of the lateral left foot posteriorly characteristic of infection with gas producing organism. Foot X-Ray 04/26/18 23:12 CONCLUSION: Infection of the lateral posterior left foot with gas producing organism. No acute bony abnormality identified on plain film. Liver Ultrasound 05/10/18 00:00 CONCLUSION: 1. Slight splenomegaly. Abdomen/Pelvis CT 05/11/18 00:00 CONCLUSION: 1. Nonobstructing 1.3 cm left renal calculus. 2. Unremarkable bowel gas pattern and normal appendix. - Procedures 04/26/18 - Dr. Conteh - Left ankle incision drainage debridement with application of wound vac Assessment and Plan - Assessment (1) Sepsis Code(s): A41.9 - Sepsis, unspecified organism Status: Acute (2) Foot infection Code(s): L08.9 - Local infection of the skin and subcutaneous tissue, unspecified Status: Acute (3) IVDU (intravenous drug user) Code(s): F19.90 - Other psychoactive substance use, unspecified, uncomplicated Status: Acute (4) Hypokalemia Code(s): E87.6 - Hypokalemia Status: Acute - Plan 43-year-old female admitted secondary to left foot infection related to IV drug abuse, with outpatient treatment failure. Sepsis Resolved Left foot abscess/cellulitis Wound cx + Klebsiella pneumoniae Status post I&D and wound vac placement Podiatry following, wound vac in place, continue changed three times per wk. Infectious disease following -okay to discharge on Augmentin 500 mg p.o. TID x 7 -10 days. Continue on Augmentin. Continue antibiotics Continue monitoring wound status Transitioning off of Methadone IV drug abuse History of heroin abuse Allergy to NSAIDS Continue transitioning off of methadone, decrease methadone to 10mg daily. Decrease Roxicodone to 5mg q6h prn Interestingly, patient's urine drug screen is negative x 2 despite being given opiates and benzodiazepines this admission. [facility] nursing staff, monitor patient cautiously when taking oral benzodiazepines and pain medications. UDS Methadone pending. Monitor clinically Transaminitis, acute, possibly DILI Hx of Hepatitis C, dx'd 2 yrs ago, treatment aive Left sided flank pain of uncertain etiology CT shows nonobstructing 1.3cm left renal calculus LFTs much improved Liver US +slight splenomegaly Hep profile +Hep C. HCV genotype pending GI following, appreciate assistance. They have signed off. Patient will need to follow-up with GI as outpatient for HCV tx. Avoidance of hepatotoxic agents Left sided flank pain, likely renal colic, resolved CT shows nonobstructing 1.3cm left renal calculus Encourage po intake monitor General anxiety disorder Continue as needed lorazepam Hemorrhoids Proctofoam Vaginal candidiasis Patient received oral fluconazole Continue Monistat for 7 days topically DVT prophylaxis Heparin sq Discussed Condition With: patient, nursing staff, Dr. Wooten Discharge Planning: Case management assisting with discharge planning, patient will need wound care/ wound VAC set up at time of discharge.
[2018-05-14] MEDS: Amoxicillin/Clavulanate 500/125 MG Tablet PO SCH ×3 (08:35→18:24)
[2018-05-14] MEDS: Gabapentin 400 MG Capsule PO SCH ×3 (08:36→18:24)
[2018-05-14] MEDS: Heparin - SQ 10,000 UNITS/ML Vial SQ SCH ×2 (08:37→21:23)
[2018-05-14] MEDS: Senna/Docusate Sodium 8.6/50 MG Tablet PO SCH ×2 (08:37→21:23)
[2018-05-14] MEDS: REMOVE OLD NICOTINE PATCH T-DERMAL SCH (08:38)
[2018-05-14] MEDS ORDERED: Methadone 10 MG Tablet PO SCH (09:00)
--- NOTE | 2018-05-14 10:58 | P.PNGI ---
Subjective Interval history: Pt resting in bed, denies any continued abdominal pain. No GI complaints at this time. <Bev Zepeda - Last Filed: 05/14/18 10:55> Physical Exam Vital signs: Vital Signs 05/13/18 12:00 05/13/18 12:35 05/13/18 16:00 Temperature 98 F Pulse Rate 79 99 H Respiratory Rate 16 16 18 Blood Pressure 109/58 L 137/88 Pulse Oximetry 96 98 05/13/18 20:00 05/14/18 00:00 05/14/18 00:29 Temperature 98.3 F 98.0 F Pulse Rate 81 6 L Respiratory Rate 16 18 16 Blood Pressure 126/86 121/77 Pulse Oximetry 98 96 05/14/18 08:00 Temperature 98.3 F Pulse Rate 78 Respiratory Rate 16 Blood Pressure 111/63 Pulse Oximetry 97 Intake & Output 05/13/18 05/14/18 05/14/18 18:59 06:59 18:59 Intake Total 800 / 800 2800 / 2800 Output Total 1007 / 1007 Balance 800 / 800 1793 / 1793 Intake: Oral 800 / 800 800 / 800 Anesthesia Amount 800 / 800 Other 1200 / 1200 Output: Urine 1000 / 1000 Stool 2 / 2 Estimated Blood Loss 5 / 5 Other: Mode Setting Left Ankle Continuous Continuous Continuous # Voids 4 2 2 Date of Last Bowel Movement 05/12/18 05/13/18 05/14/18 # Bowel Movements 1 - Constitutional no acute distress - Routine HEENT Exam Head: Present: normocephalic, atraumatic - Routine Respiratory Exam Absent: accessory muscle use - Routine Cardiovascular Exam Present: RRR - Routine Abdominal Exam Present: soft, normoactive bowel sounds. Absent: tenderness, distended - Routine Skin Exam Present: dry, warm Comments: wound vac to L foot - Routine Neurological Exam Present: alert, oriented X3 <Bev Zepeda - Last Filed: 05/14/18 10:55> Vital signs: Vital Signs 05/13/18 20:00 05/14/18 00:00 05/14/18 00:29 Temperature 98.3 F 98.0 F Pulse Rate 81 6 L Respiratory Rate 16 18 16 Blood Pressure 126/86 121/77 Pulse Oximetry 98 96 05/14/18 08:00 05/14/18 11:56 Temperature 98.3 F 98.2 F Pulse Rate 78 64 Respiratory Rate 16 16 Blood Pressure 111/63 112/63 Pulse Oximetry 97 95 Intake & Output 05/13/18 05/14/18 05/14/18 18:59 06:59 18:59 Intake Total 800 / 800 2800 / 2800 Output Total 1007 / 1007 Balance 800 / 800 1793 / 1793 Intake: Oral 800 / 800 800 / 800 Anesthesia Amount 800 / 800 Other 1200 / 1200 Output: Urine 1000 / 1000 Stool 2 / 2 Estimated Blood Loss 5 / 5 Other: Mode Setting Left Ankle Continuous Continuous Continuous # Voids 4 2 2 Date of Last Bowel Movement 05/12/18 05/13/18 05/14/18 # Bowel Movements 1 <Isreal Fernández - Last Filed: 05/14/18 16:58> Results - Labs CBC & Chem 7: 05/10/18 05:45 05/13/18 06:13 Laboratory Results - last 24 hr 05/13/18 05/13/18 16:25 16:25 Urine Color Yellow Urine Clarity Hazy H Urine pH 5.0 Ur Specific [employer] 1.017 Urine Protein Negative Urine Glucose (UA) Negative Urine Ketones Negative Urine Occult Blood Negative Urine Nitrate Negative Urine Bilirubin Negative Urine Urobilinogen Less than 2 Ur Leukocyte Esterase Moderate H Urine RBC 1 Urine WBC 32 H Ur Squamous Epith Cells 2 Urine Bacteria Occasional H Urine Mucus Few H Micro UA Comment Culture indicated Urine Culture Comments Culture indicated Urine Opiates Screen Neg Ur Barbiturates Screen Neg Ur Amphetamines Screen Neg U Benzodiazepines Scrn Neg Urine Cocaine Screen Neg U Cannabinoids Screen Neg - Procedures 04/26/18 - Dr. Conteh - Left ankle incision drainage debridement with application of wound vac <Bev Zepeda - Last Filed: 05/14/18 10:55> - Labs CBC & Chem 7: 05/10/18 05:45 05/13/18 06:13 Laboratory Results - last 24 hr 05/13/18 05/13/18 16:25 16:25 Urine Color Yellow Urine Clarity Hazy H Urine pH 5.0 Ur Specific [employer] 1.017 Urine Protein Negative Urine Glucose (UA) Negative Urine Ketones Negative Urine Occult Blood Negative Urine Nitrate Negative Urine Bilirubin Negative Urine Urobilinogen Less than 2 Ur Leukocyte Esterase Moderate H Urine RBC 1 Urine WBC 32 H Ur Squamous Epith Cells 2 Urine Bacteria Occasional H Urine Mucus Few H Micro UA Comment Culture indicated Urine Culture Comments Culture indicated Urine Opiates Screen Neg Ur Barbiturates Screen Neg Ur Amphetamines Screen Neg U Benzodiazepines Scrn Neg Urine Cocaine Screen Neg U Cannabinoids Screen Neg Microbiology 05/13/18 00:58 Clean Catch Urine Urine Culture - Preliminary No growth in 24 hours <Isreal Fernández - Last Filed: 05/14/18 16:58> Assessment and Plan - Plan Assessment: - Elevated LFTs with positive Hepatitis C antibody Admitted with LLE abscess/cellulitis S/P I&D and placement of wound vac- presented after IV heroine use into her left foot LFTs have trended up since admission Pt states has been diagnosed with Hepatitis C during previous admission but has never received treatment for this. Also admits to meth and crack use. Denies ETOH. Has 8 tattoos, 2 done at a friends house. Denies high risk sexual behaviors. US liver --> Slight splenomegaly ] - Abdominal pain, states generalized over entire abdomen, constant, described as cramping, compares the pain to her menstrual cycle - Constipation- secondary to heroine use, states BMs are normal when she is not on heroine (05/12) Pt sitting on side of bed, complaining of pain in her left foot. States some mild nausea earlier but now resolved. Denies any abdominal pain or cramping today. CT abdomen and pelvis --> Nonobstructing 1.3 cm left renal calculus. Unremarkable bowel gas pattern and normal appendix. Hep C genotype and quant pending, no repeat LFTs from today (05/13) LFTs trending down, Hep C genotype and quant still pending. Pt reports some left flank pain that she attributes to kidney stone. Denies any nausea, vomiting, abdominal pain other than flank pain. (05/14) No repeat labs from today, however LFTs have been trending down. Hep C work up still pending. Pt states she lives in [place] and will follow up with GI up there. Discussed need for drug cessation. Plan: Hep C genotype and quant If indicated will need to be started on treatment outpatient Avoid hepatotoxins Continue supportive care Our service will sign off, please reconsult as needed Have pt follow up with GI after DC, if going back to [place], can follow up there Pt has been seen and examined by myself and Dr. Fernández and this note is written on his behalf <Bev Zepeda - Last Filed: 05/14/18 10:55> - Plan Seen and examined with [facility], no abdominal pain. Hep c estrada pending. Will sign off , fu as outpt with GI for further recs. Abstinence from etoh and drugs recommended. Thank you <Isreal Fernández - Last Filed: 05/14/18 16:58>
[2018-05-14 17:51] LABS: Hepatitis C RNA (PCR) IUs/ml 87300 IU/mL (0-14); Hepatitis C RNA (PCR) log IUs 4.94 (0-1.18)
[2018-05-15] MEDS: LORazepam 1 MG Tablet PO PRN ×4 (00:12→18:22)
[2018-05-15 07:51] LABS: HCV Genotype 1a (Not Detecte)
[2018-05-15] MEDS: Gabapentin 400 MG Capsule PO SCH ×3 (08:10→17:07)
[2018-05-15] MEDS: Amoxicillin/Clavulanate 500/125 MG Tablet PO SCH ×3 (08:10→17:06)
[2018-05-15] MEDS: REMOVE OLD NICOTINE PATCH T-DERMAL SCH (08:12)
[2018-05-15] MEDS: Senna/Docusate Sodium 8.6/50 MG Tablet PO SCH ×2 (08:12→21:52)
[2018-05-15] MEDS: Heparin - SQ 10,000 UNITS/ML Vial SQ SCH ×2 (08:12→21:51)
[2018-05-15] MEDS ORDERED: Methadone 10 MG Tablet PO SCH (09:00)
--- NOTE | 2018-05-15 14:53 | P.PN ---
Subjective Interval history: Follow-up on patient with left foot abscess/cellulitis, IVDU. Patient seen and examined. Patient is sleeping soundly upon me entering the room. She easily awakens to voice. She is requesting more pain medication. States "its not fair , I have a big hole in my foot". Plan for wound vac change today. Discussed with nursing staff, no acute issues noted. Physical Exam Vital signs: Vital Signs 05/14/18 16:00 05/14/18 20:00 05/15/18 04:00 Temperature 98.2 F 98.3 F 98 F Pulse Rate 68 71 66 Respiratory Rate 17 16 16 Blood Pressure 116/72 113/73 114/64 Pulse Oximetry 95 97 96 05/15/18 09:02 05/15/18 13:16 Temperature 98.2 F 97.8 F Pulse Rate 71 68 Respiratory Rate 16 18 Blood Pressure 114/62 113/66 Pulse Oximetry 96 97 Intake & Output 05/14/18 05/15/18 05/15/18 18:59 06:59 18:59 Other: Mode Setting Left Ankle Continuous Continuous Continuous # Voids 2 3 Date of Last Bowel Movement 05/14/18 05/13/18 Narrative: GENERAL: Well-developed, well-nourished, overweight female patient INAD. Awake and alert. Asleep upon entering the room, easily awakens to voice. SKIN: Warm and dry. No generalized rash. HEENT: Normocephalic. Atraumatic. EOMI. Sclera anicteric. No nasal drainage. MMM. Airway patent. NECK: Supple, trachea midline. No lymphadenopathy. CARDIOVASCULAR: Regular rate and rhythm without murmurs, gallops, or rubs. RESPIRATORY: Nonlabored. Clear to auscultation bilaterally. No accessory muscle use. No wheezing or rhonchi noted on exam. GASTROINTESTINAL: Abdomen soft, non-tender, nondistended. +BS. MUSCULOSKELETAL: No cyanosis. Lateral wound VAC in place on left foot. NEURO: Awake and alert but appears somewhat lethargic. CN II-XII grossly intact. Able to move all extremities spontaneously. No focal neurological deficits. PSYCHIATRIC: Calm and cooperative. Results - Labs CBC & Chem 7: 05/10/18 05:45 05/13/18 06:13 Laboratory Results - last 24 hr 05/12/18 09:50 HCV RNA Genotype 1a HCV RNA (PCR) IUs/ml 34070 H HCV RNA PCR log IUs/ml 4.94 H Microbiology 05/13/18 00:58 Clean Catch Urine Urine Culture - Final No growth in 48 hours - Imaging Ankle X-Ray 04/26/18 23:12 CONCLUSION: Extensive soft tissue swelling with air in the soft tissues of the lateral left foot posteriorly characteristic of infection with gas producing organism. Foot X-Ray 04/26/18 23:12 CONCLUSION: Infection of the lateral posterior left foot with gas producing organism. No acute bony abnormality identified on plain film. Liver Ultrasound 05/10/18 00:00 CONCLUSION: 1. Slight splenomegaly. Abdomen/Pelvis CT 05/11/18 00:00 CONCLUSION: 1. Nonobstructing 1.3 cm left renal calculus. 2. Unremarkable bowel gas pattern and normal appendix. - Procedures 04/26/18 - Dr. Conteh - Left ankle incision drainage debridement with application of wound vac Assessment and Plan - Assessment (1) Sepsis Code(s): A41.9 - Sepsis, unspecified organism Status: Acute (2) Foot infection Code(s): L08.9 - Local infection of the skin and subcutaneous tissue, unspecified Status: Acute (3) IVDU (intravenous drug user) Code(s): F19.90 - Other psychoactive substance use, unspecified, uncomplicated Status: Acute (4) Hypokalemia Code(s): E87.6 - Hypokalemia Status: Acute - Plan 43-year-old female admitted secondary to left foot infection related to IV drug abuse, with outpatient treatment failure. Sepsis Resolved Left foot abscess/cellulitis Wound cx + Klebsiella pneumoniae Status post I&D and wound vac placement Podiatry following, wound vac in place, continue vac changes three times per wk. Discussed with nursing staff being present for next wound vac change to assess wound. Infectious disease following -okay to discharge on Augmentin 500 mg p.o. TID x 7 -10 days. Continue on Augmentin. Continue antibiotics Continue monitoring wound status - Wound care consulted to assess if wound vac can be discontinued. Transitioning off of Methadone IV drug abuse History of heroin abuse Allergy to NSAIDS Continue transitioning off of methadone, decrease methadone to 10mg daily. Continue Roxicodone to 5mg q6h prn Interestingly, patient's urine drug screen is negative x 2 despite being given opiates and benzodiazepines this admission. [facility] nursing staff, monitor patient cautiously when taking oral benzodiazepines and pain medications. UDS Methadone pending. Monitor clinically Transaminitis, acute, possibly DILI Hx of Hepatitis C, dx'd 2 yrs ago, treatment aive Left sided flank pain of uncertain etiology CT shows nonobstructing 1.3cm left renal calculus LFTs much improved Liver US +slight splenomegaly Hep profile +Hep C. HCV genotype pending GI following, appreciate assistance. They have signed off. Patient will need to follow-up with GI as outpatient for HCV tx. Avoidance of hepatotoxic agents Left sided flank pain, likely renal colic, resolved CT shows nonobstructing 1.3cm left renal calculus Encourage po intake monitor General anxiety disorder Continue as needed lorazepam Hemorrhoids Proctofoam Vaginal candidiasis Patient received oral fluconazole Continue Monistat for 7 days topically DVT prophylaxis Heparin sq Code Status: Full Discussed Condition With: patient, nursing staff, DIANA, Dr. Wooten Discharge Planning: Case management assisting with discharge planning, patient will need wound care/ wound VAC set up at time of discharge. NYASIA ORTIZ today who will contact insurance company again regarding possibility of self referral to wound care clinic in [place].
--- NOTE | 2018-05-15 18:01 | P.PNWCN ---
Wound Care Nurse Consult Description: Consult for Wound VAC management left foot per JOSE Zamudio Communicated with: Patient Kimmie, RN JOSE Zamudio Recommendation: DC wound VAC to left lateral foot. Remove 3 sutures noted to periwound. Dressing changes Q5D and PRN for saturation or dislodgement: 1. Gently cleanse left lateral foot wound with NS and gauze. 2. Apply Puracol AG over wound bed. 3. Cover with 4x4 gauze. 4. Secure with lorin. Continue dressing changes for 2 weeks and then cleanse daily and cover with dry dressing. Additional information: Patient seen on for left lateral foot wound VAC dressing change. Wound/Pressure Injury - Patient Status Premedicated for Pain Prior to Dressing Change: Yes - Wound Left Ankle Requested from Provider a Wound Care Consult: Yes (JOSE Zamudio) Length: 4.6 (cm) Width: 3 (cm) Depth: 0.3 (cm) Wound Bed Appearance: Red (100% granulation tissue) Surrounding Tissue Appearance: [place] (peeling periwound with 3 sutures noted) Surrounding Tissue Temperature: Warm Drainage Amount: None Drainage Odor: No Odor Dressing Status: Changed (Wound VAC removed) Cleansing Solution: Saline Primary Dressing: Puracol AG Cover Dressing: Gauze Roll/Wrap Tape Type: Silk Wound Dressing Change Date: 05/15/18 (Change every 5 days for 2 weeks, then dry dressings.) Wound Margin Description: open with epithelial tissue
[2018-05-16] MEDS: LORazepam 1 MG Tablet PO PRN ×2 (00:16→06:19)
[2018-05-16] MEDS: Temazepam 15 MG Capsule PO PRN (00:16)
--- NOTE | 2018-05-16 07:28 | P.PN ---
Subjective Interval history: Follow-up on patient with left foot abscess/cellulitis, IVDU. Patient seen and examined. Wound VAC was discontinued yesterday. Plan to discharge patient today. She has no new medical complaints. Patient is hysterical, crying, saying that she has no where to go. She is requesting to stay in the hospital for another week. She is complaining that her phone does not work and she is not able to get in contact with anyone. Discussed with nursing staff. Physical Exam Vital signs: Vital Signs 05/15/18 09:02 05/15/18 13:16 05/15/18 17:11 Temperature 98.2 F 97.8 F 97.9 F Pulse Rate 71 68 78 Respiratory Rate 16 18 16 Blood Pressure 114/62 113/66 129/85 Pulse Oximetry 96 97 05/15/18 20:00 05/16/18 00:00 05/16/18 04:00 Temperature 98.0 F 98.3 F 98.2 F Pulse Rate 69 76 68 Respiratory Rate 18 Blood Pressure 114/68 123/79 115/70 Pulse Oximetry 96 95 98 Intake & Output 05/15/18 05/16/18 05/16/18 18:59 06:59 18:59 Intake Total 720 / 720 Balance 720 / 720 Weight 83 kg Intake: Oral 720 / 720 Other: Mode Setting Left Ankle Continuous # Voids 3 2 Date of Last Bowel Movement 05/16/18 # Bowel Movements 1 Narrative: GENERAL: Well-developed, well-nourished, overweight female patient INAD. Awake and alert. Upset, crying because she is being discharged. SKIN: Warm and dry. No generalized rash. HEENT: Normocephalic. Atraumatic. EOMI. Sclera anicteric. No nasal drainage. MMM. Airway patent. NECK: Supple, trachea midline. No lymphadenopathy. CARDIOVASCULAR: Regular rate and rhythm without murmurs, gallops, or rubs. RESPIRATORY: Nonlabored. Clear to auscultation bilaterally. No accessory muscle use. No wheezing or rhonchi noted on exam. GASTROINTESTINAL: Abdomen soft, non-tender, nondistended. +BS. MUSCULOSKELETAL: No cyanosis. Left lateral foot wound vac removed, dressing in place, C/D/I NEURO: Awake and alert. CN II-XII grossly intact. Able to move all extremities spontaneously. No focal neurological deficits. PSYCHIATRIC: Upset, tearful. An appropriate mood and affect. Judgment and insight poor. Results - Labs CBC & Chem 7: 05/10/18 05:45 05/13/18 06:13 Laboratory Results - last 24 hr 05/12/18 09:50 HCV RNA Genotype 1a Microbiology 05/13/18 00:58 Clean Catch Urine Urine Culture - Final No growth in 48 hours - Imaging Ankle X-Ray 04/26/18 23:12 CONCLUSION: Extensive soft tissue swelling with air in the soft tissues of the lateral left foot posteriorly characteristic of infection with gas producing organism. Foot X-Ray 04/26/18 23:12 CONCLUSION: Infection of the lateral posterior left foot with gas producing organism. No acute bony abnormality identified on plain film. Liver Ultrasound 05/10/18 00:00 CONCLUSION: 1. Slight splenomegaly. Abdomen/Pelvis CT 05/11/18 00:00 CONCLUSION: 1. Nonobstructing 1.3 cm left renal calculus. 2. Unremarkable bowel gas pattern and normal appendix. - Procedures 04/26/18 - Dr. Conteh - Left ankle incision drainage debridement with application of wound vac Assessment and Plan - Assessment (1) Sepsis Code(s): A41.9 - Sepsis, unspecified organism Status: Acute (2) Foot infection Code(s): L08.9 - Local infection of the skin and subcutaneous tissue, unspecified Status: Acute (3) IVDU (intravenous drug user) Code(s): F19.90 - Other psychoactive substance use, unspecified, uncomplicated Status: Acute (4) Hypokalemia Code(s): E87.6 - Hypokalemia Status: Acute - Plan 43-year-old female admitted secondary to left foot infection related to IV drug abuse, with outpatient treatment failure. Sepsis Resolved Left foot abscess/cellulitis Wound cx + Klebsiella pneumoniae Status post I&D and wound vac placement Podiatry following, they have signed off Infectious disease following -okay to discharge on Augmentin 500 mg p.o. TID x 7 -10 days. Continue on Augmentin. Continue antibiotics 8/3 wound vac removed. D/C sutures. Per wound care, Dressing changes Q5D and PRN for saturation or dislodgement: 1. Gently cleanse left lateral foot wound with NS and gauze. 2. Apply Puracol AG over wound bed. 3. Cover with 4x4 gauze. 4. Secure with lorin. Continue dressing changes for 2 weeks and then cleanse daily and cover with dry dressing. IV drug abuse History of heroin abuse Allergy to NSAIDS Methadone and Roxicodone discontinued Interestingly, patient's urine drug screen is negative x 2 despite being given opiates and benzodiazepines this admission. [facility] nursing staff, monitor patient cautiously when taking oral benzodiazepines and pain medications. UDS Methadone pending. Monitor clinically Transaminitis, acute, possibly DILI Hx of Hepatitis C, dx'd 2 yrs ago, treatment aive Left sided flank pain of uncertain etiology CT shows nonobstructing 1.3cm left renal calculus LFTs much improved Liver US +slight splenomegaly Hep profile +Hep C. HCV genotype pending GI following, appreciate assistance. They have signed off. Patient will need to follow-up with GI as outpatient for HCV tx. Avoidance of hepatotoxic agents Left sided flank pain, likely renal colic, resolved CT shows nonobstructing 1.3cm left renal calculus Encourage po intake monitor General anxiety disorder Continue as needed lorazepam Hemorrhoids Proctofoam Vaginal candidiasis Patient received oral fluconazole Continue Monistat for 7 days topically DVT prophylaxis Heparin sq Code Status: Full Discussed Condition With: patient, nursing staff, Dr. Wooten Discharge Planning: Plan for discharge today. CM assisting with discharge planning.
[2018-05-16] MEDS ORDERED: LORazepam 1 MG Tablet PO PRN ×2 (07:42→07:43)
--- NOTE | 2018-05-16 07:45 | P.DS ---
Date of admission: 04/26/18 23:30 Primary care physician: UNKNOWN Attending physician on discharge: Radha Wooten Anticipated date of discharge: 05/16/18 Brief History from admission: This is a 43-year-old female with a PMH of IVDU presents to ER with complaints of left foot swelling and tenderness x1 wk after injecting IV drugs into left foot. Seen in ER on 04/23/18 for similar symptoms, d/c'd w/ Bactrim/Keflex, non- compliant w/ antibiotics. Now w/ worsening pain/swelling. Denies fever or chills. On arrival, BP 119/69, HR 103, O2 sat 99%, Temp 99.8. WBC 18.7. K+ 2.7. Lactic Acid normal. Foot X-ray w/ infection of left foot w/ gas producing organism. Podiatry consulted for surgical intervention. S/p Vanc/ Zosyn/Flagyl in ER. DS: Diagnosis - Discharge Diagnosis (1) Sepsis Status: Acute (2) Foot infection Status: Acute (3) IVDU (intravenous drug user) Status: Acute (4) Hypokalemia Status: Acute DS: Medications - Discharge Medications Prescriptions: amoxicillin-pot clavulanate [Augmentin] 1 tab PO TID 7 Days #21 tab gabapentin [Neurontin] 400 mg PO TID 14 Days #42 cap DS: Summary Hospital Course: Patient with sepsis and left foot infection with history of IV drug use. Imaging of the left foot revealed gas producing organism. Patient was started on IV vancomycin, cefepime and Flagyl. Patient was seen in consultation by podiatry and underwent I&D left foot with application of wound VAC 04/26/18. Patient was seen in consultation by infectious disease. Patient was continued on vancomycin and Zosyn. On 04/29/18, she underwent a repeat I&D and application of wound VAC. Wound culture grew Klebsiella pneumoniae. Patient's blood cultures remained without any growth. Patient was transitioned to oral Augmentin by ID who signed off and gave clearance for discharge. Patient seen in consultation by gastroenterology for history of hepatitis C and worsening liver function test. CT the abdomen pelvis was obtained which was significant only for a 1.3 cm nonobstructing left renal calculus. Patient's LFTs improved. GI signed off and recommended patient follow-up as an outpatient. Patient's wound was reassessed by wound care nurse and the wound vac and sutures were discontinued. Patient was advised on multiple occasions of complete abstinence from alcohol and all drugs. Patient was discharged from the hospital in stable condition. - Time Spent with Patient Total time spent providing and/or coordinating discharge services: Greater than 30 minutes - Quality: VTE Deep Vein Thrombosis/Pulmonary Embolism Present on Admission: No Exam Vital signs: Vital Signs 05/15/18 09:02 05/15/18 13:16 05/15/18 17:11 Temperature 98.2 F 97.8 F 97.9 F Pulse Rate 71 68 78 Respiratory Rate 16 18 16 Blood Pressure 114/62 113/66 129/85 Pulse Oximetry 96 97 05/15/18 20:00 05/16/18 00:00 05/16/18 04:00 Temperature 98.0 F 98.3 F 98.2 F Pulse Rate 69 76 68 Respiratory Rate 18 18 18 Blood Pressure 114/68 123/79 115/70 Pulse Oximetry 96 95 98 Intake & Output 05/15/18 05/16/18 05/16/18 18:59 06:59 18:59 Intake Total 720 / 720 Balance 720 / 720 Weight 83 kg Intake: Oral 720 / 720 Other: Mode Setting Left Ankle Continuous # Voids 3 2 Date of Last Bowel Movement 05/16/18 # Bowel Movements 1 Narrative: GENERAL: Well-developed, well-nourished, overweight female patient INAD. Awake and alert. Upset, crying because she is being discharged. SKIN: Warm and dry. No generalized rash. HEENT: Normocephalic. Atraumatic. EOMI. Sclera anicteric. No nasal drainage. MMM. Airway patent. NECK: Supple, trachea midline. No lymphadenopathy. CARDIOVASCULAR: Regular rate and rhythm without murmurs, gallops, or rubs. RESPIRATORY: Nonlabored. Clear to auscultation bilaterally. No accessory muscle use. No wheezing or rhonchi noted on exam. GASTROINTESTINAL: Abdomen soft, non-tender, nondistended. +BS. MUSCULOSKELETAL: No cyanosis. Left lateral foot wound vac removed, dressing in place, C/D/I NEURO: Awake and alert. CN II-XII grossly intact. Able to move all extremities spontaneously. No focal neurological deficits. PSYCHIATRIC: Upset, tearful. An appropriate mood and affect. Judgment and insight poor. Results Procedures completed during hospitalization: 04/26/18 - Dr. Slater - Left ankle incision drainage debridement with application of wound vac Labs on day of discharge: Labs from last 24 hours 05/12/18 09:50 HCV RNA Genotype 1a Preliminary micro results at discharge 04/27/18 02:35 Fungal Culture - Preliminary Wound - Ankle No growth in 2 weeks 04/27/18 02:35 Mycobacterial Culture - Preliminary Wound - Ankle No growth in 2 weeks 04/27/18 02:30 Fungal Culture - Preliminary Wound - Ankle No growth in 2 weeks 04/27/18 02:30 Mycobacterial Culture - Preliminary Wound - Ankle No growth in 2 weeks - Impressions ITS Impressions Ankle X-Ray 04/26/18 23:12 CONCLUSION: Extensive soft tissue swelling with air in the soft tissues of the lateral left foot posteriorly characteristic of infection with gas producing organism. Foot X-Ray 04/26/18 23:12 CONCLUSION: Infection of the lateral posterior left foot with gas producing organism. No acute bony abnormality identified on plain film. Liver Ultrasound 05/10/18 00:00 CONCLUSION: 1. Slight splenomegaly. Abdomen/Pelvis CT 05/11/18 00:00 CONCLUSION: 1. Nonobstructing 1.3 cm left renal calculus. 2. Unremarkable bowel gas pattern and normal appendix. Discharge Plan - Discharge Disposition Patient Disposition: /Home Health Service - Discharge Condition Condition: Stable - Discharge Order Discharge Orders: Discharge Order (Routine); Ordered 05/16/18 Ordered By: Isela Zamudio - Discharge Details Anticipated Discharge Date: 05/16/18 Discharge Comment: Dressing changes Q5D and PRN for saturation or dislodgement: - Physicians Team Primary Care Provider: UNKNOWN, Attending Provider: Radha Wooten Other Providers: Jonas Slater DPM ; Sharona Box MD ; Isreal Fernández MD ; Bonnie Pham MD
--- NOTE | 2018-05-16 08:25 | P.DCO ---
- Diagnosis (2) Foot ulcer with necrosis of muscle - Home Health Nursing Order: Signs/symptoms of disease process, Wound care and dressing changes Instructions: Dressing changes Q5D and PRN for saturation or dislodgement: 1. Gently cleanse left lateral foot wound with NS and gauze. 2. Apply Puracol AG over wound bed. 3. Cover with 4x4 gauze. 4. Secure with lorin. Continue dressing changes for 2 weeks and then cleanse daily and cover with dry dressing. - Certification I have seen patient Patricio Kearney on 05/16/18. My clinical findings support the need for the requested home health care services because: Medication compliance is questionable I certify that my clinical findings support that this patient is homebound because: Post-op weakness (2) Foot ulcer with necrosis of muscle Qualifiers: Laterality: left Qualified Code(s): L97.523 - Non-pressure chronic ulcer of other part of left foot with necrosis of muscle
[2018-05-16] MEDS: Amoxicillin/Clavulanate 500/125 MG Tablet PO SCH ×2 (09:39→12:47)
[2018-05-16] MEDS: Gabapentin 400 MG Capsule PO SCH ×2 (09:39→12:47)
[2018-05-16] MEDS: Senna/Docusate Sodium 8.6/50 MG Tablet PO SCH (11:10)
[2018-05-16] MEDS: Heparin - SQ 10,000 UNITS/ML Vial SQ SCH (11:10)
[2018-05-16] MEDS: REMOVE OLD NICOTINE PATCH T-DERMAL SCH (11:10)
== END 2018-05-16 17:30 | disposition home health service (06) ==
LOC: NEPC 20:28 → NEDA 23:30 → HPAC 04-27 03:29 → NEPGCP 04-27 04:17 → N05 04-28 15:28
PROVIDERS: ADMIT Hospitalist; ATTEND Hospitalist